=== PATIENT | male | born 1985 | race Caucasian/White ===

== ENCOUNTER 2016-09-28 09:08 | Inpatient (IN) | payer OTHER ==
[2016-09-28 11:28] VITALS: BMI 22.9
--- NOTE | 2016-09-28 13:20 | HP ---
CIWA Score - CIWA Score Nausea/Vomitin-Mild Nausea/No Vomiting Muscle Tremors: 4-Moderate,w/Arms Extend Anxiety: 3 Agitation: 4-Moderately Restless Paroxysmal Sweats: 3 Orientation: 0-Oriented Tacttile Disturbances: 0-None Auditory Disturbances: 0-None Visual Disturbances: 0-None Headache: 0-None Present CIWA-Ar Total Score: 15 Admission ROS BHS - HPI Chief Complaint: I have an alcohol problem and need help. Allergies/Adverse Reactions: Allergies Allergy/AdvReac Type Severity Reaction Status Date / Time No Known Allergies Allergy Verified 09/28/16 11:09 History of Present Illness: pt is a 31yr old male with a history of alcohol dependence seeking detox for treatment. Exam Limitations: No Limitations - Ebola screening Have you traveled outside of the country in the last 21 days: No Have you had contact with anyone from an Ebola affected area: No Have you been sick,other than usual withdrawal symptoms: No Do you have a fever: No - Review of Systems Constitutional: Chills, Diaphoresis, Loss of Appetite, Night Sweats, Changes in sleep, Unintentional Wgt. Loss EENT: reports: No Symptoms Reported Respiratory: reports: No Symptoms reported Cardiac: reports: No Symptoms Reported, Syncope GI: reports: Poor Fluid Intake, Indigestion : reports: No Symptoms Reported Musculoskeletal: reports: No Symptoms Reported Integumentary: reports: Flushing, Sweating Neuro: reports: Headache, Tingling, Tremors Endocrine: reports: Excessive Sweating, Flushing, Intolerance to Cold, Intolerance to Heat Hematology: reports: No Symptoms Reported Psychiatric: reports: Judgement Intact, Mood/Affect Appropiate, Orientated x3, Agitated, Anxious Other Systems: Reviewed and Negative Patient History - Patient Medical History Hx Anemia: No Hx Asthma: No Hx Chronic Obstructive Pulmonary Disease (COPD): No Hx Cancer: No Hx Cardiac Disorders: No Hx Congestive Heart Failure: No Hx Hypertension: Yes Hx Hypercholesterolemia: No Hx Pacemaker: No HX Cerebrovascular Accident: No Hx Seizures: No Hx Dementia: No Hx Diabetes: No Hx Gastrointestinal Disorders: Yes (acid reflux) Hx Liver Disease: No Hx Genitourinary Disorders: No Hx Sexually Transmitted Disorders: No Hx Renal Disease (ESRD): No Hx Thyroid Disease: No Hx Human Immunodeficiency Virus (HIV): No Hx Hepatitis C: No Hx Depression: No Hx Suicide Attempt: No (denies) Hx Bipolar Disorder: No Hx Schizophrenia: No - Patient Surgical History Past Surgical History: Yes Hx Neurologic Surgery: No Hx Cataract Extraction: No Hx Cardiac Surgery: No Hx Lung Surgery: No Hx Breast Surgery: No Hx Breast Biopsy: No Hx Abdominal Surgery: No Hx Appendectomy: Yes Hx Cholecystectomy: No Hx Genitourinary Surgery: No Hx Section: No Hx Orthopedic Surgery: No Hx Hysterectomy: No (N/A) Anesthesia Reaction: No - PPD History Previous Implant?: Yes Documented Results: Negative w/proof Implanted On Prior [facility] Admission?: Yes Date: 10/31/14 Results: 0 mm - Reproductive History Patient is a Female of Child Bearing Age (11 -55 yrs old): No - Smoking Cessation Smoking history: Current some day smoker Have you smoked in the past 12 months: No Aproximately how many cigarettes per day: 3 Cigars Per Day: 0 Hx Chewing Tobacco Use: No Initiated information on smoking cessation: Yes 'Breaking Loose' booklet given: 09/28/16 - Substance & Tx. History Hx Alcohol Use: Yes Hx Substance Use: No Substance Use Type: Alcohol Hx Substance Use Treatment: Yes - Substances Abused Alcohol-rum/beer Route: Oral Frequency: Daily Amount used: 1 liter/2 (12 oz.) Age of first use: 16 Date of Last Use: 09/28/16 Family Disease History - Family Disease History Family Disease History: Heart Disease: Grandparent Admission Physical Exam BHS - Vital Signs Vital Signs: Vital Signs - 24 hr 09/28/16 11:17 Temperature 98.3 F Pulse Rate 91 H Respiratory 18 Rate Blood Pressure 150/91 - Physical General Appearance: Yes: Appropriately Dressed, Moderate Distress, Tremorous, Irritable, Sweating, Anxious HEENTM: Yes: Normal Voice Respiratory: Yes: Lungs Clear, Normal Breath Sounds, No Respiratory Distress Neck: Yes: No masses,lesions,Nodules Breast: Yes: Within Normal Limits Cardiology: Yes: Regular Rhythm, Regular Rate, S1, S2, Tachycardia Abdominal: Yes: Normal Bowel Sounds Genitourinary: Yes: Within Normal Limits Back: Yes: Normal Inspection Musculoskeletal: Yes: full range of Motion Extremities: Yes: Normal Capillary Refill, Normal Inspection, Non-Tender, Tremors Neurological: Yes: Fully Oriented, Alert, Normal Response Integumentary: Yes: Normal Color, Diaphoresis Lymphatic: Yes: Within Normal Limits - Diagnostic (1) Alcohol dependence with uncomplicated withdrawal Current Visit: Yes Status: Chronic (2) Acid reflux Current Visit: Yes Status: Chronic Qualifiers: Esophagitis presence: without esophagitis Qualified Code(s): K21.9 - Gastro-esophageal reflux disease without esophagitis (3) Hypertension Current Visit: Yes Status: Chronic Qualifiers: Hypertension type: essential hypertension Qualified Code(s): I10 - Essential (primary) hypertension Cleared for Admission S - Detox or Rehab [facility] Level of Care: Medically Managed Detox Regimen/Protocol: Librium [facility] Breath Alcohol Content Breath Alcohol Content: 0.163 Urine Drug Screen - Results Drug Screen Negative: Yes
[2016-09-28] MEDS ORDERED: hydrOXYzine PAMOATE 50 MG CAPSULE (FP) PO PRN (13:26)
[2016-09-28] MEDS ORDERED: guaiFENesin/D-METHORPHAN HB 10 ML UNIT-DOSE CUPS PO PRN (13:26)
[2016-09-28] MEDS ORDERED: chlordiazePOXIDE HCL 25 MG CAPSULE PO PRN (13:26)
[2016-09-28] MEDS ORDERED: MAGNESIUM CITRATE 300 ML BOTTLE PO PRN (13:26)
[2016-09-28] MEDS ORDERED: MENTHOL/PHENOL 1 EACH UD MM PRN (13:26)
[2016-09-28] MEDS ORDERED: MAG HYDROX/AL HYDROX/SIMETH 30 ML UNIT-DOSE CUP PO PRN (13:26)
[2016-09-28] MEDS ORDERED: ACETAMINOPHEN 325 MG TABLET (FP) PO PRN (13:26)
[2016-09-28] MEDS ORDERED: MAGNESIUM HYDROX 2400MG/30ML ORAL SUSPENSION 30 ML CUP PO PRN (13:26)
[2016-09-28] MEDS ORDERED: IBUPROFEN 400 MG TABLET (FP) PO PRN (13:26)
[2016-09-28] MEDS ORDERED: LOPERAMIDE HCL 2 MG CAPSULE PO PRN (13:26)
[2016-09-28] MEDS ORDERED: P-EPHED 60MG/TRIPROLIDI 2.5MG TABLET PO PRN (13:26)
[2016-09-28] MEDS ORDERED: chlordiazePOXIDE HCL 25 MG CAPSULE PO ONE (14:03)
--- NOTE | 2016-09-28 16:11 | EKG ---
Test Reason : Blood Pressure : / mmHG Vent. Rate : 087 BPM Atrial Rate : 087 BPM P-R Int : 128 ms QRS Dur : 092 ms QT Int : 370 ms P-R-T Axes : 017 022 031 degrees QTc Int : 445 ms NORMAL SINUS RHYTHM NORMAL ECG WHEN COMPARED WITH ECG OF 20-MAR-2016 09:49, NO SIGNIFICANT CHANGE WAS FOUND Confirmed by ARISTIDES SAWANT MD ([id number]) on 09/28/2016 4:11:07 PM Referred By: Christian Borges Confirmed By:ARSITIDES SAWANT MD
[2016-09-28 17:22] LABS: URINE APPEARANCE CLEAR; URINE BILIRUBIN NEGATIVE (NEGATIVE); URINE BLOOD NEGATIVE (NEGATIVE); URINE COLOR YELLOW; URINE GLUCOSE (UA) NEGATIVE (NEGATIVE); URINE KETONE NEGATIVE (NEGATIVE); URINE LEUK ESTERASE NEGATIVE (NEGATIVE); URINE NITRITE NEGATIVE (NEGATIVE); URINE PROTEIN NEGATIVE (NEGATIVE); URINE UROBILINOGEN NEGATIVE E.U./dl (0.2-1.0)
[2016-09-28] MEDS: chlordiazePOXIDE HCL 25 MG CAPSULE PO SCH ×2 (17:28→22:18)
[2016-09-28] MEDS ORDERED: PATIENT'S OWN MEDICATION (NON-FORMULARY) (Clonidine Hcl [Clonidine Hcl Er] 0.1 MG) PO SCH (22:00)
[2016-09-28] MEDS: THIAMINE HCL 100 MG TABLET (FP) PO SCH (22:17)
[2016-09-28] MEDS: cloNIDine HCL 0.1 MG TABLET PO SCH (22:17)
[2016-09-29] MEDS: chlordiazePOXIDE HCL 25 MG CAPSULE PO SCH ×4 (05:27→22:46)
[2016-09-29 09:52] LABS: MCH 33.5 pg (25.7-33.7); MCHC 34.3 g/dl (32.0-35.9); MEAN CELL VOLUME 97.6 fl (80-96); MEAN PLT VOLUME 8.7 fl (7.5-11.1); PLATELET COUNT 222 K/MM3 (134-434); RDW 11.9 % (11.9-15.9); WHITE BLOOD COUNT 5.9 K/mm3 (4.0-10.0)
--- NOTE | 2016-09-29 09:55 | PN ---
S CIWA - CIWA Score Nausea/Vomitin Muscle Tremors: 3 Anxiety: 3 Agitation: 2 Paroxysmal Sweats: 3 Orientation: 0-Oriented Tacttile Disturbances: 1-Very Mild Itch/Numbness Auditory Disturbances: 0-None Visual Disturbances: 0-None Headache: 0-None Present CIWA-Ar Total Score: 14 BHS Progress Note (SOAP) Subjective: interrupted sleep, sweats, shakes Objective: 09/29/16 09:54 Vital Signs Temperature 98.1 F 09/29/16 09:51 Pulse Rate 88 09/29/16 09:51 Respiratory Rate 16 09/29/16 09:51 Blood Pressure 131/66 09/29/16 09:51 O2 Sat by Pulse Oximetry (%) Laboratory Tests 09/28/16 13:00 Urine Color Yellow Urine Appearance Clear Urine pH 6.0 Ur Specific [place] 1.015 Urine Protein Negative Urine Glucose (UA) Negative Urine Ketones Negative Urine Blood Negative Urine Nitrite Negative Urine Bilirubin Negative Urine Urobilinogen Negative Ur Leukocyte Esterase Negative 09/29/16 11:29 pt aox3 in nad ambulating 09/29/16 11:29 09/29/16 11:30 Laboratory Tests 09/28/16 09/29/16 13:00 06:10 WBC 5.9 RBC 4.39 Hgb 14.7 Hct 42.8 MCV 97.6 H MCHC 34.3 RDW 11.9 Plt Count 222 D MPV 8.7 Urine Color Yellow Urine Appearance Clear Urine pH 6.0 Ur Specific [place] 1.015 Urine Protein Negative Urine Glucose (UA) Negative Urine Ketones Negative Urine Blood Negative Urine Nitrite Negative Urine Bilirubin Negative Urine Urobilinogen Negative Ur Leukocyte Esterase Negative Assessment: 09/29/16 09:55 withdrawal sx's 09/29/16 11:29 Plan: cont. detox increase fluids f/up pending labs
[2016-09-29 10:48] LABS: ALBUMIN 4.1 g/dl (3.4-5.0); ALK PHOS 89 U/L (45-117); ANION GAP 11 (8-16); BILIRUBIN,TOTAL 0.5 mg/dL (0.2-1.0); CALCIUM 8.4 mg/dL (8.5-10.1); CO2 26 mmol/L (21-32); CREATININE 0.8 mg/dL (0.7-1.3); GLUCOSE,RANDOM 96 mg/dL (74-106); SGOT/AST 28 U/L (15-37); SGPT/ALT 43 U/L (12-78); TOT PROT 7.5 g/dl (6.4-8.2)
[2016-09-29] MEDS: PANTOPRAZOLE 40 MG TABLET (FP) PO SCH (10:55)
[2016-09-29] MEDS: cloNIDine HCL 0.1 MG TABLET PO SCH ×2 (10:55→22:46)
[2016-09-29] MEDS: PRENATAL VITAMINS W/ FOLIC ACID TABLET (FP) PO SCH (10:55)
[2016-09-29] MEDS: diphenhydrAMINE HCL 50 MG CAPSULE PO PRN (22:46)
[2016-09-29] MEDS: THIAMINE HCL 100 MG TABLET (FP) PO SCH (22:46)
[2016-09-30] MEDS: chlordiazePOXIDE HCL 25 MG CAPSULE PO SCH ×2 (05:22→10:27)
[2016-09-30 09:32] LABS: URINE APPEARANCE CLEAR; URINE BILIRUBIN NEGATIVE (NEGATIVE); URINE BLOOD NEGATIVE (NEGATIVE); URINE COLOR LTYELLOW; URINE GLUCOSE (UA) NEGATIVE (NEGATIVE); URINE KETONE NEGATIVE (NEGATIVE); URINE LEUK ESTERASE NEGATIVE (NEGATIVE); URINE NITRITE NEGATIVE (NEGATIVE); URINE PROTEIN NEGATIVE (NEGATIVE); URINE UROBILINOGEN 2.0 E.U/dl E.U./dl (0.2-1.0)
[2016-09-30] MEDS: PRENATAL VITAMINS W/ FOLIC ACID TABLET (FP) PO SCH (10:27)
[2016-09-30] MEDS: PANTOPRAZOLE 40 MG TABLET (FP) PO SCH (10:28)
[2016-09-30] MEDS: cloNIDine HCL 0.1 MG TABLET PO SCH ×2 (10:28→22:46)
--- NOTE | 2016-09-30 14:53 | PN ---
S CIWA - CIWA Score Nausea/Vomitin Muscle Tremors: 3 Anxiety: 3 Agitation: 2 Paroxysmal Sweats: 3 Orientation: 0-Oriented Tacttile Disturbances: 3-Moderate Itch/Numb/Burn Auditory Disturbances: 0-None Visual Disturbances: 1-Very Mild Sensitivity Headache: 0-None Present CIWA-Ar Total Score: 18 BHS Progress Note (SOAP) Subjective: Sweating, Stomach Cramping, Interrupted sleep. Objective: PT. A & O X 3, OBSERVED AMBULATING ON UNIT. 09/30/16 14:50 Vital Signs Temperature 96.6 F L 09/30/16 14:31 Pulse Rate 98 H 09/30/16 14:31 Respiratory Rate 20 09/30/16 14:31 Blood Pressure 124/74 09/30/16 14:31 O2 Sat by Pulse Oximetry (%) Laboratory Last Values WBC 5.9 K/mm3 (4.0-10.0) 09/29/16 06:10 RBC 4.39 M/mm3 (4.00-5.60) 09/29/16 06:10 Hgb 14.7 GM/dL (11.7-16.9) 09/29/16 06:10 Hct 42.8 % (35.4-49) 09/29/16 06:10 MCV 97.6 fl (80-96) H 09/29/16 06:10 MCHC 34.3 g/dl (32.0-35.9) 09/29/16 06:10 RDW 11.9 % (11.9-15.9) 09/29/16 06:10 Plt Count 222 K/MM3 (134-434) D 09/29/16 06:10 MPV 8.7 fl (7.5-11.1) 09/29/16 06:10 Sodium 142 mmol/L (136-145) 09/29/16 06:10 Potassium 3.6 mmol/L (3.5-5.1) 09/29/16 06:10 Chloride 105 mmol/L (98-107) 09/29/16 06:10 Carbon Dioxide 26 mmol/L (21-32) 09/29/16 06:10 Anion Gap 11 (8-16) 09/29/16 06:10 BUN 7 mg/dL (7-18) D 09/29/16 06:10 Creatinine 0.8 mg/dL (0.7-1.3) 09/29/16 06:10 Creat Clearance w eGFR > 60 (>60) 09/29/16 06:10 Random Glucose 96 mg/dL (74-106) 09/29/16 06:10 Calcium 8.4 mg/dL (8.5-10.1) L 09/29/16 06:10 Total Bilirubin 0.5 mg/dL (0.2-1.0) D 09/29/16 06:10 AST 28 U/L (15-37) D 09/29/16 06:10 ALT 43 U/L (12-78) D 09/29/16 06:10 Alkaline Phosphatase 89 U/L (45-117) D 09/29/16 06:10 Total Protein 7.5 g/dl (6.4-8.2) 09/29/16 06:10 Albumin 4.1 g/dl (3.4-5.0) 09/29/16 06:10 Urine Color Ltyellow 09/30/16 07:50 Urine Appearance Clear 09/30/16 07:50 Urine pH 7.0 (5.0-8.0) 09/30/16 07:50 Ur Specific [place] 1.013 (1.001-1.035) 09/30/16 07:50 Urine Protein Negative (NEGATIVE) 09/30/16 07:50 Urine Glucose (UA) Negative (NEGATIVE) 09/30/16 07:50 Urine Ketones Negative (NEGATIVE) 09/30/16 07:50 Urine Blood Negative (NEGATIVE) 09/30/16 07:50 Urine Nitrite Negative (NEGATIVE) 09/30/16 07:50 Urine Bilirubin Negative (NEGATIVE) 09/30/16 07:50 Urine Urobilinogen 2.0 e.u/dl E.U./dl (0.2-1.0) 09/30/16 07:50 Ur Leukocyte Esterase Negative (NEGATIVE) 09/30/16 07:50 RPR Titer Nonreactive (NONREACTIVE) 09/29/16 06:10 Hepatitis C Antibody 0.1 s/co ratio (0.0-0.9) 09/28/16 13:10 LABS NOTED. Assessment: 09/30/16 14:51 WITHDRAWAL SYMPTOMS. Plan: CONTINUE DETOX.
[2016-09-30] MEDS: chlordiazePOXIDE 5 MG CAPSULE PO SCH ×2 (17:27→22:46)
[2016-09-30] MEDS: diphenhydrAMINE HCL 50 MG CAPSULE PO PRN (22:46)
[2016-09-30] MEDS: THIAMINE HCL 100 MG TABLET (FP) PO SCH (22:46)
[2016-10-01] MEDS: chlordiazePOXIDE 5 MG CAPSULE PO SCH ×2 (05:57→10:31)
[2016-10-01] MEDS: PANTOPRAZOLE 40 MG TABLET (FP) PO SCH (10:31)
[2016-10-01] MEDS: PRENATAL VITAMINS W/ FOLIC ACID TABLET (FP) PO SCH (10:31)
[2016-10-01] MEDS: cloNIDine HCL 0.1 MG TABLET PO SCH ×2 (10:31→22:15)
--- NOTE | 2016-10-01 12:35 | PN ---
BHS Progress Note (SOAP) Subjective: Anxiety and restlessness Objective: 10/01/16 12:35 NAD Vital Signs - 8 hr 10/01/16 10/01/16 06:00 10:00 Temperature 97.7 F 98.2 F Pulse Rate 61 92 H Respiratory 16 20 Rate Blood Pressure 131/75 125/71 Laboratory Last Values WBC 5.9 K/mm3 (4.0-10.0) 09/29/16 06:10 RBC 4.39 M/mm3 (4.00-5.60) 09/29/16 06:10 Hgb 14.7 GM/dL (11.7-16.9) 09/29/16 06:10 Hct 42.8 % (35.4-49) 09/29/16 06:10 MCV 97.6 fl (80-96) H 09/29/16 06:10 MCHC 34.3 g/dl (32.0-35.9) 09/29/16 06:10 RDW 11.9 % (11.9-15.9) 09/29/16 06:10 Plt Count 222 K/MM3 (134-434) D 09/29/16 06:10 MPV 8.7 fl (7.5-11.1) 09/29/16 06:10 Sodium 142 mmol/L (136-145) 09/29/16 06:10 Potassium 3.6 mmol/L (3.5-5.1) 09/29/16 06:10 Chloride 105 mmol/L (98-107) 09/29/16 06:10 Carbon Dioxide 26 mmol/L (21-32) 09/29/16 06:10 Anion Gap 11 (8-16) 09/29/16 06:10 BUN 7 mg/dL (7-18) D 09/29/16 06:10 Creatinine 0.8 mg/dL (0.7-1.3) 09/29/16 06:10 Creat Clearance w eGFR > 60 (>60) 09/29/16 06:10 Random Glucose 96 mg/dL (74-106) 09/29/16 06:10 Calcium 8.4 mg/dL (8.5-10.1) L 09/29/16 06:10 Total Bilirubin 0.5 mg/dL (0.2-1.0) D 09/29/16 06:10 AST 28 U/L (15-37) D 09/29/16 06:10 ALT 43 U/L (12-78) D 09/29/16 06:10 Alkaline Phosphatase 89 U/L (45-117) D 09/29/16 06:10 Total Protein 7.5 g/dl (6.4-8.2) 09/29/16 06:10 Albumin 4.1 g/dl (3.4-5.0) 09/29/16 06:10 Urine Color Ltyellow 09/30/16 07:50 Urine Appearance Clear 09/30/16 07:50 Urine pH 7.0 (5.0-8.0) 09/30/16 07:50 Ur Specific [place] 1.013 (1.001-1.035) 09/30/16 07:50 Urine Protein Negative (NEGATIVE) 09/30/16 07:50 Urine Glucose (UA) Negative (NEGATIVE) 09/30/16 07:50 Urine Ketones Negative (NEGATIVE) 09/30/16 07:50 Urine Blood Negative (NEGATIVE) 09/30/16 07:50 Urine Nitrite Negative (NEGATIVE) 09/30/16 07:50 Urine Bilirubin Negative (NEGATIVE) 09/30/16 07:50 Urine Urobilinogen 2.0 e.u/dl E.U./dl (0.2-1.0) 09/30/16 07:50 Ur Leukocyte Esterase Negative (NEGATIVE) 09/30/16 07:50 RPR Titer Nonreactive (NONREACTIVE) 09/29/16 06:10 Hepatitis C Antibody 0.1 s/co ratio (0.0-0.9) 09/28/16 13:10 Labs noted Assessment: 10/01/16 12:35 withdrawal sx Plan: continue detox
[2016-10-01] MEDS: chlordiazePOXIDE HCL 10 MG CAPSULE PO SCH ×2 (17:23→22:15)
[2016-10-01] MEDS: diphenhydrAMINE HCL 50 MG CAPSULE PO PRN (22:15)
[2016-10-01] MEDS: THIAMINE HCL 100 MG TABLET (FP) PO SCH (22:15)
[2016-10-02] MEDS: chlordiazePOXIDE HCL 10 MG CAPSULE PO SCH (05:24)
[2016-10-02 06:43] VITALS: BP 118/70; PULSE 73; TEMP 97.9
--- NOTE | 2016-10-02 10:19 | DS ---
[facility] Detox Discharge Summary Admission Date: 09/28/16 Discharge Date: 10/02/16 - History Present History: Alcohol Dependence Pertinent Past History: Hypertension Smoker - Physical Exam Results Vital Signs: Vital Signs Temperature 97.9 F 10/02/16 06:00 Pulse Rate 73 10/02/16 06:00 Respiratory Rate 16 10/02/16 06:00 Blood Pressure 118/70 10/02/16 06:00 O2 Sat by Pulse Oximetry (%) Laboratory Last Values WBC 5.9 K/mm3 (4.0-10.0) 09/29/16 06:10 RBC 4.39 M/mm3 (4.00-5.60) 09/29/16 06:10 Hgb 14.7 GM/dL (11.7-16.9) 09/29/16 06:10 Hct 42.8 % (35.4-49) 09/29/16 06:10 MCV 97.6 fl (80-96) H 09/29/16 06:10 MCHC 34.3 g/dl (32.0-35.9) 09/29/16 06:10 RDW 11.9 % (11.9-15.9) 09/29/16 06:10 Plt Count 222 K/MM3 (134-434) D 09/29/16 06:10 MPV 8.7 fl (7.5-11.1) 09/29/16 06:10 Sodium 142 mmol/L (136-145) 09/29/16 06:10 Potassium 3.6 mmol/L (3.5-5.1) 09/29/16 06:10 Chloride 105 mmol/L (98-107) 09/29/16 06:10 Carbon Dioxide 26 mmol/L (21-32) 09/29/16 06:10 Anion Gap 11 (8-16) 09/29/16 06:10 BUN 7 mg/dL (7-18) D 09/29/16 06:10 Creatinine 0.8 mg/dL (0.7-1.3) 09/29/16 06:10 Creat Clearance w eGFR > 60 (>60) 09/29/16 06:10 Random Glucose 96 mg/dL (74-106) 09/29/16 06:10 Calcium 8.4 mg/dL (8.5-10.1) L 09/29/16 06:10 Total Bilirubin 0.5 mg/dL (0.2-1.0) D 09/29/16 06:10 AST 28 U/L (15-37) D 09/29/16 06:10 ALT 43 U/L (12-78) D 09/29/16 06:10 Alkaline Phosphatase 89 U/L (45-117) D 09/29/16 06:10 Total Protein 7.5 g/dl (6.4-8.2) 09/29/16 06:10 Albumin 4.1 g/dl (3.4-5.0) 09/29/16 06:10 Urine Color Ltyellow 09/30/16 07:50 Urine Appearance Clear 09/30/16 07:50 Urine pH 7.0 (5.0-8.0) 09/30/16 07:50 Ur Specific [place] 1.013 (1.001-1.035) 09/30/16 07:50 Urine Protein Negative (NEGATIVE) 09/30/16 07:50 Urine Glucose (UA) Negative (NEGATIVE) 09/30/16 07:50 Urine Ketones Negative (NEGATIVE) 09/30/16 07:50 Urine Blood Negative (NEGATIVE) 09/30/16 07:50 Urine Nitrite Negative (NEGATIVE) 09/30/16 07:50 Urine Bilirubin Negative (NEGATIVE) 09/30/16 07:50 Urine Urobilinogen 2.0 e.u/dl E.U./dl (0.2-1.0) 09/30/16 07:50 Ur Leukocyte Esterase Negative (NEGATIVE) 09/30/16 07:50 RPR Titer Nonreactive (NONREACTIVE) 09/29/16 06:10 Hepatitis C Antibody 0.1 s/co ratio (0.0-0.9) 09/28/16 13:10 labs noted - Treatment Hospital Course: Detox Protocol Followed, Detoxed Safely, Responded well, Discharged Condition Good - Medication Discharge Medications: Ambulatory Orders Clonidine HCl [Clonidine HCl ER] 0.1 mg PO BID 03/19/16 Omeprazole [Prilosec] 40 mg PO DAILY 03/19/16 - Diagnosis (1) Acid reflux Status: Chronic Qualifiers: Esophagitis presence: without esophagitis Qualified Code(s): K21.9 - Gastro-esophageal reflux disease without esophagitis (2) Alcohol dependence with uncomplicated withdrawal Status: Chronic (3) Hypertension Status: Chronic Qualifiers: Hypertension type: essential hypertension Qualified Code(s): I10 - Essential (primary) hypertension (4) Nicotine dependence unspecified, with withdrawal Status: Acute - AMA Did Patient Leave Against Medical Advice: No
== END 2016-10-02 09:44 | disposition home or self-care (01) | DRG 775 ==
LOC: YASAS 09:08 → Y6N 11:49
PROVIDERS: ADMIT Internal Medicine Addiction Medicine; ATTEND Internal Medicine Addiction Medicine
PROC: HZ2ZZZZ Detoxification Services for Substance Abuse Treatment (ICD-10-PCS; principal; 2016-10-02)
DX: F10.230 Alcohol dependence with withdrawal, uncomplicated (principal); F17.213 Nicotine dependence, cigarettes, with withdrawal; I10 Essential (primary) hypertension; K21.9 Gastro-esophageal reflux disease without esophagitis
CPT/HCPCS: 36415; 80053; 81003; 85027; 86593; 93005; 93010

== ENCOUNTER 2016-10-04 09:27 | Inpatient (IN) | payer OTHER ==
[2016-10-04 09:53] VITALS: BMI 24.4
--- NOTE | 2016-10-04 11:32 | HP ---
[facility] Rehab Assess/Revision - Admission History Admitted to Rehab from: [facility] (COMPLETED DETOX ON 09/28/16 TO .) Date of Admission to Rehab: 10/04/16 - Vital signs Vital Signs: Vital Signs Period Temp Pulse Resp BP Sys/Muniz Pulse Ox Last 24 Hr 98.4 F 128 18 145/97 - Findings Detox History & Physical reviewed: Yes Concur with findings: Yes Comments/Additional Findings: RETURNED TODAY FOR A FOLLOW UP TO REHAB [place] RECOMMENDATION. PMHX:HTN. ON CLONIDINE 0.1 MG PO BID(VERIFIED FROM [facility]). PMD:MORENO TILLMAN MD. PH:[phone]
[2016-10-04] MEDS ORDERED: P-EPHED 60MG/TRIPROLIDI 2.5MG TABLET PO PRN (11:41)
[2016-10-04] MEDS ORDERED: NICOTINE POLACRILEX 2 MG GUM BUC PRN (11:41)
[2016-10-04] MEDS ORDERED: IBUPROFEN 400 MG TABLET (FP) PO PRN (11:41)
[2016-10-04] MEDS ORDERED: ACETAMINOPHEN 325 MG TABLET (FP) PO PRN (11:41)
[2016-10-04] MEDS ORDERED: MAG HYDROX/AL HYDROX/SIMETH 30 ML UNIT-DOSE CUP PO PRN (11:41)
[2016-10-04] MEDS ORDERED: guaiFENesin/D-METHORPHAN HB 10 ML UNIT-DOSE CUPS PO PRN (11:41)
[2016-10-04] MEDS ORDERED: MENTHOL/PHENOL 1 EACH UD MM PRN (11:41)
[2016-10-04] MEDS ORDERED: MAGNESIUM CITRATE 300 ML BOTTLE PO PRN (11:41)
[2016-10-04] MEDS ORDERED: LOPERAMIDE HCL 2 MG CAPSULE PO PRN (11:41)
[2016-10-04] MEDS ORDERED: MAGNESIUM HYDROX 2400MG/30ML ORAL SUSPENSION 30 ML CUP PO PRN (11:41)
[2016-10-04] MEDS ORDERED: PATIENT'S OWN MEDICATION (NON-FORMULARY) (Clonidine Hcl [Clonidine Hcl Er] 0.1 MG) PO SCH (11:45)
[2016-10-04] MEDS: cloNIDine HCL 0.1 MG TABLET PO SCH ×2 (13:57→21:45)
[2016-10-04] MEDS: NICOTINE 14 MG/24 HOURS TOPICAL PATCH TD SCH (13:58)
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
[2016-10-04 20:04] LABS: URINE APPEARANCE CLEAR; URINE BILIRUBIN NEGATIVE (NEGATIVE); URINE BLOOD NEGATIVE (NEGATIVE); URINE COLOR LTYELLOW; URINE GLUCOSE (UA) NEGATIVE (NEGATIVE); URINE KETONE NEGATIVE (NEGATIVE); URINE LEUK ESTERASE NEGATIVE (NEGATIVE); URINE NITRITE NEGATIVE (NEGATIVE); URINE PROTEIN NEGATIVE (NEGATIVE); URINE UROBILINOGEN NEGATIVE E.U./dl (0.2-1.0)
[2016-10-04] MEDS: THIAMINE HCL 100 MG TABLET (FP) PO SCH (21:45)
[2016-10-04] MEDS: diphenhydrAMINE HCL 50 MG CAPSULE PO PRN (21:45)
[2016-10-05] MEDS: cloNIDine HCL 0.1 MG TABLET PO SCH ×2 (10:12→21:49)
[2016-10-05] MEDS: PRENATAL VITAMINS W/ FOLIC ACID TABLET (FP) PO SCH (10:12)
[2016-10-05] MEDS: NICOTINE 14 MG/24 HOURS TOPICAL PATCH TD SCH (10:12)
[2016-10-05 14:16] LABS: URINE APPEARANCE CLEAR; URINE BILIRUBIN NEGATIVE (NEGATIVE); URINE BLOOD NEGATIVE (NEGATIVE); URINE COLOR YELLOW; URINE GLUCOSE (UA) NEGATIVE (NEGATIVE); URINE KETONE NEGATIVE (NEGATIVE); URINE LEUK ESTERASE NEGATIVE (NEGATIVE); URINE NITRITE NEGATIVE (NEGATIVE); URINE PROTEIN NEGATIVE (NEGATIVE); URINE UROBILINOGEN 2.0 E.U/dl E.U./dl (0.2-1.0)
[2016-10-05] MEDS: THIAMINE HCL 100 MG TABLET (FP) PO SCH (21:49)
[2016-10-05] MEDS: diphenhydrAMINE HCL 50 MG CAPSULE PO PRN (21:50)
[2016-10-06] MEDS: cloNIDine HCL 0.1 MG TABLET PO SCH ×2 (10:05→21:33)
[2016-10-06] MEDS: NICOTINE 14 MG/24 HOURS TOPICAL PATCH TD SCH (10:05)
[2016-10-06] MEDS: PRENATAL VITAMINS W/ FOLIC ACID TABLET (FP) PO SCH (10:05)
[2016-10-06] MEDS: THIAMINE HCL 100 MG TABLET (FP) PO SCH (21:33)
[2016-10-06] MEDS: hydrOXYzine PAMOATE 50 MG CAPSULE (FP) PO PRN (21:33)
[2016-10-07] MEDS: PRENATAL VITAMINS W/ FOLIC ACID TABLET (FP) PO SCH (10:04)
[2016-10-07] MEDS: cloNIDine HCL 0.1 MG TABLET PO SCH ×2 (10:04→21:37)
[2016-10-07] MEDS: NICOTINE 14 MG/24 HOURS TOPICAL PATCH TD SCH (10:05)
[2016-10-07] MEDS: THIAMINE HCL 100 MG TABLET (FP) PO SCH (21:37)
[2016-10-07] MEDS: diphenhydrAMINE HCL 50 MG CAPSULE PO PRN (21:37)
[2016-10-08] MEDS: PRENATAL VITAMINS W/ FOLIC ACID TABLET (FP) PO SCH (10:22)
[2016-10-08] MEDS: NICOTINE 14 MG/24 HOURS TOPICAL PATCH TD SCH (10:22)
[2016-10-08] MEDS: cloNIDine HCL 0.1 MG TABLET PO SCH ×2 (10:22→21:59)
[2016-10-08] MEDS: hydrOXYzine PAMOATE 50 MG CAPSULE (FP) PO PRN (21:59)
[2016-10-08] MEDS: THIAMINE HCL 100 MG TABLET (FP) PO SCH (21:59)
[2016-10-09] MEDS: cloNIDine HCL 0.1 MG TABLET PO SCH ×2 (09:58→21:27)
[2016-10-09] MEDS: PRENATAL VITAMINS W/ FOLIC ACID TABLET (FP) PO SCH (09:58)
[2016-10-09] MEDS: NICOTINE 14 MG/24 HOURS TOPICAL PATCH TD SCH (09:59)
[2016-10-09] MEDS: hydrOXYzine PAMOATE 50 MG CAPSULE (FP) PO PRN (21:27)
[2016-10-09] MEDS: THIAMINE HCL 100 MG TABLET (FP) PO SCH (21:27)
[2016-10-10] MEDS: cloNIDine HCL 0.1 MG TABLET PO SCH ×2 (10:17→21:29)
[2016-10-10] MEDS: NICOTINE 14 MG/24 HOURS TOPICAL PATCH TD SCH (10:17)
[2016-10-10] MEDS: PRENATAL VITAMINS W/ FOLIC ACID TABLET (FP) PO SCH (10:17)
[2016-10-10] MEDS: THIAMINE HCL 100 MG TABLET (FP) PO SCH (21:29)
[2016-10-10] MEDS: hydrOXYzine PAMOATE 50 MG CAPSULE (FP) PO PRN (21:29)
[2016-10-11] MEDS: NICOTINE 14 MG/24 HOURS TOPICAL PATCH TD SCH (09:52)
[2016-10-11] MEDS: PRENATAL VITAMINS W/ FOLIC ACID TABLET (FP) PO SCH (09:52)
[2016-10-11] MEDS: cloNIDine HCL 0.1 MG TABLET PO SCH ×2 (09:52→21:17)
[2016-10-11] MEDS: THIAMINE HCL 100 MG TABLET (FP) PO SCH (21:17)
[2016-10-11] MEDS: diphenhydrAMINE HCL 50 MG CAPSULE PO PRN (21:18)
[2016-10-12] MEDS: PRENATAL VITAMINS W/ FOLIC ACID TABLET (FP) PO SCH (10:05)
[2016-10-12] MEDS: NICOTINE 14 MG/24 HOURS TOPICAL PATCH TD SCH (10:05)
[2016-10-12] MEDS: cloNIDine HCL 0.1 MG TABLET PO SCH ×2 (10:05→21:39)
[2016-10-12] MEDS: diphenhydrAMINE HCL 50 MG CAPSULE PO PRN (21:39)
[2016-10-12] MEDS: THIAMINE HCL 100 MG TABLET (FP) PO SCH (21:39)
[2016-10-13] MEDS: PRENATAL VITAMINS W/ FOLIC ACID TABLET (FP) PO SCH (10:28)
[2016-10-13] MEDS: NICOTINE 14 MG/24 HOURS TOPICAL PATCH TD SCH (10:28)
[2016-10-13] MEDS: cloNIDine HCL 0.1 MG TABLET PO SCH ×2 (10:29→21:08)
[2016-10-13] MEDS: THIAMINE HCL 100 MG TABLET (FP) PO SCH (21:07)
[2016-10-13] MEDS: diphenhydrAMINE HCL 50 MG CAPSULE PO PRN (21:08)
[2016-10-14] MEDS: NICOTINE 14 MG/24 HOURS TOPICAL PATCH TD SCH (09:56)
[2016-10-14] MEDS: PRENATAL VITAMINS W/ FOLIC ACID TABLET (FP) PO SCH (09:56)
[2016-10-14] MEDS: cloNIDine HCL 0.1 MG TABLET PO SCH ×2 (09:56→21:51)
[2016-10-14] MEDS: THIAMINE HCL 100 MG TABLET (FP) PO SCH (21:52)
[2016-10-14] MEDS: hydrOXYzine PAMOATE 50 MG CAPSULE (FP) PO PRN (21:52)
[2016-10-15] MEDS: NICOTINE 14 MG/24 HOURS TOPICAL PATCH TD SCH (09:50)
[2016-10-15] MEDS: PRENATAL VITAMINS W/ FOLIC ACID TABLET (FP) PO SCH (09:50)
[2016-10-15] MEDS: cloNIDine HCL 0.1 MG TABLET PO SCH ×2 (09:50→21:13)
[2016-10-15] MEDS: diphenhydrAMINE HCL 50 MG CAPSULE PO PRN (21:13)
[2016-10-15] MEDS: THIAMINE HCL 100 MG TABLET (FP) PO SCH (21:13)
[2016-10-16] MEDS: PRENATAL VITAMINS W/ FOLIC ACID TABLET (FP) PO SCH (09:53)
[2016-10-16] MEDS: NICOTINE 14 MG/24 HOURS TOPICAL PATCH TD SCH (09:53)
[2016-10-16] MEDS: cloNIDine HCL 0.1 MG TABLET PO SCH ×2 (09:53→21:06)
[2016-10-16] MEDS: diphenhydrAMINE HCL 50 MG CAPSULE PO PRN (21:06)
[2016-10-16] MEDS: THIAMINE HCL 100 MG TABLET (FP) PO SCH (21:06)
[2016-10-17] MEDS: cloNIDine HCL 0.1 MG TABLET PO SCH ×2 (10:00→21:24)
[2016-10-17] MEDS: PRENATAL VITAMINS W/ FOLIC ACID TABLET (FP) PO SCH (10:00)
[2016-10-17] MEDS: NICOTINE 14 MG/24 HOURS TOPICAL PATCH TD SCH (10:00)
[2016-10-17] MEDS: THIAMINE HCL 100 MG TABLET (FP) PO SCH (21:24)
[2016-10-17] MEDS: hydrOXYzine PAMOATE 50 MG CAPSULE (FP) PO PRN (21:25)
[2016-10-18] MEDS: PRENATAL VITAMINS W/ FOLIC ACID TABLET (FP) PO SCH (10:12)
[2016-10-18] MEDS: NICOTINE 14 MG/24 HOURS TOPICAL PATCH TD SCH (10:12)
[2016-10-18] MEDS: cloNIDine HCL 0.1 MG TABLET PO SCH ×2 (10:12→21:36)
[2016-10-18] MEDS: THIAMINE HCL 100 MG TABLET (FP) PO SCH (21:36)
[2016-10-18] MEDS: diphenhydrAMINE HCL 50 MG CAPSULE PO PRN (21:36)
[2016-10-19] MEDS: PRENATAL VITAMINS W/ FOLIC ACID TABLET (FP) PO SCH (09:53)
[2016-10-19] MEDS: cloNIDine HCL 0.1 MG TABLET PO SCH ×2 (09:53→21:24)
[2016-10-19] MEDS: NICOTINE 14 MG/24 HOURS TOPICAL PATCH TD SCH (09:53)
[2016-10-19] MEDS: hydrOXYzine PAMOATE 50 MG CAPSULE (FP) PO PRN (21:24)
[2016-10-19] MEDS: THIAMINE HCL 100 MG TABLET (FP) PO SCH (21:24)
[2016-10-20] MEDS: PRENATAL VITAMINS W/ FOLIC ACID TABLET (FP) PO SCH (09:57)
[2016-10-20] MEDS: cloNIDine HCL 0.1 MG TABLET PO SCH ×2 (09:57→21:30)
[2016-10-20] MEDS: NICOTINE 14 MG/24 HOURS TOPICAL PATCH TD SCH (09:57)
[2016-10-20] MEDS: diphenhydrAMINE HCL 50 MG CAPSULE PO PRN (21:29)
[2016-10-20] MEDS: THIAMINE HCL 100 MG TABLET (FP) PO SCH (21:29)
[2016-10-21] MEDS: NICOTINE 14 MG/24 HOURS TOPICAL PATCH TD SCH (10:12)
[2016-10-21] MEDS: PRENATAL VITAMINS W/ FOLIC ACID TABLET (FP) PO SCH (10:12)
[2016-10-21] MEDS: cloNIDine HCL 0.1 MG TABLET PO SCH ×2 (10:12→21:34)
[2016-10-21] MEDS: diphenhydrAMINE HCL 50 MG CAPSULE PO PRN (21:34)
[2016-10-21] MEDS: THIAMINE HCL 100 MG TABLET (FP) PO SCH (21:34)
[2016-10-22] MEDS: NICOTINE 14 MG/24 HOURS TOPICAL PATCH TD SCH (09:59)
[2016-10-22] MEDS: cloNIDine HCL 0.1 MG TABLET PO SCH ×2 (09:59→21:34)
[2016-10-22] MEDS: PRENATAL VITAMINS W/ FOLIC ACID TABLET (FP) PO SCH (09:59)
[2016-10-22] MEDS: hydrOXYzine PAMOATE 50 MG CAPSULE (FP) PO PRN (21:34)
[2016-10-22] MEDS: THIAMINE HCL 100 MG TABLET (FP) PO SCH (21:34)
[2016-10-22] MEDS: diphenhydrAMINE HCL 50 MG CAPSULE PO PRN (23:45)
[2016-10-23] MEDS: NICOTINE 14 MG/24 HOURS TOPICAL PATCH TD SCH (10:02)
[2016-10-23] MEDS: cloNIDine HCL 0.1 MG TABLET PO SCH ×2 (10:02→21:24)
[2016-10-23] MEDS: PRENATAL VITAMINS W/ FOLIC ACID TABLET (FP) PO SCH (10:02)
[2016-10-23] MEDS: diphenhydrAMINE HCL 50 MG CAPSULE PO PRN (21:24)
[2016-10-23] MEDS: THIAMINE HCL 100 MG TABLET (FP) PO SCH (21:24)
[2016-10-24] MEDS: PRENATAL VITAMINS W/ FOLIC ACID TABLET (FP) PO SCH (10:33)
[2016-10-24] MEDS: cloNIDine HCL 0.1 MG TABLET PO SCH ×2 (10:33→21:38)
[2016-10-24] MEDS: NICOTINE 14 MG/24 HOURS TOPICAL PATCH TD SCH (10:33)
[2016-10-24] MEDS ORDERED: PT OWN MED DRAWER 7, Y5N ONE (11:24)
[2016-10-24] MEDS: diphenhydrAMINE HCL 50 MG CAPSULE PO PRN (21:38)
[2016-10-24] MEDS: THIAMINE HCL 100 MG TABLET (FP) PO SCH (21:38)
[2016-10-25] MEDS: NICOTINE 14 MG/24 HOURS TOPICAL PATCH TD SCH ×2 (10:19→10:22)
[2016-10-25] MEDS: PRENATAL VITAMINS W/ FOLIC ACID TABLET (FP) PO SCH (10:20)
[2016-10-25] MEDS: cloNIDine HCL 0.1 MG TABLET PO SCH ×2 (10:20→21:21)
[2016-10-25] MEDS: THIAMINE HCL 100 MG TABLET (FP) PO SCH (21:21)
[2016-10-25] MEDS: diphenhydrAMINE HCL 50 MG CAPSULE PO PRN (21:21)
[2016-10-26] MEDS: PRENATAL VITAMINS W/ FOLIC ACID TABLET (FP) PO SCH (09:59)
[2016-10-26] MEDS: cloNIDine HCL 0.1 MG TABLET PO SCH ×2 (09:59→21:28)
[2016-10-26] MEDS: NICOTINE 14 MG/24 HOURS TOPICAL PATCH TD SCH (10:00)
[2016-10-26] MEDS: diphenhydrAMINE HCL 50 MG CAPSULE PO PRN (21:28)
[2016-10-26] MEDS: THIAMINE HCL 100 MG TABLET (FP) PO SCH (21:28)
[2016-10-27] MEDS: cloNIDine HCL 0.1 MG TABLET PO SCH ×2 (10:10→21:30)
[2016-10-27] MEDS: PRENATAL VITAMINS W/ FOLIC ACID TABLET (FP) PO SCH (10:10)
[2016-10-27] MEDS: NICOTINE 14 MG/24 HOURS TOPICAL PATCH TD SCH (10:10)
[2016-10-27] MEDS: THIAMINE HCL 100 MG TABLET (FP) PO SCH (21:29)
[2016-10-27] MEDS: diphenhydrAMINE HCL 50 MG CAPSULE PO PRN (21:29)
[2016-10-28] MEDS: NICOTINE 14 MG/24 HOURS TOPICAL PATCH TD SCH (10:19)
[2016-10-28] MEDS: cloNIDine HCL 0.1 MG TABLET PO SCH ×2 (10:19→21:43)
[2016-10-28] MEDS: PRENATAL VITAMINS W/ FOLIC ACID TABLET (FP) PO SCH (10:19)
[2016-10-28] MEDS: THIAMINE HCL 100 MG TABLET (FP) PO SCH (21:43)
[2016-10-28] MEDS: diphenhydrAMINE HCL 50 MG CAPSULE PO PRN (21:43)
[2016-10-29] MEDS: NICOTINE 14 MG/24 HOURS TOPICAL PATCH TD SCH (10:17)
[2016-10-29] MEDS: PRENATAL VITAMINS W/ FOLIC ACID TABLET (FP) PO SCH (10:18)
[2016-10-29] MEDS: cloNIDine HCL 0.1 MG TABLET PO SCH ×2 (10:18→21:15)
[2016-10-29] MEDS: diphenhydrAMINE HCL 50 MG CAPSULE PO PRN (21:15)
[2016-10-29] MEDS: THIAMINE HCL 100 MG TABLET (FP) PO SCH (21:15)
[2016-10-30] MEDS: PRENATAL VITAMINS W/ FOLIC ACID TABLET (FP) PO SCH (09:48)
[2016-10-30] MEDS: NICOTINE 14 MG/24 HOURS TOPICAL PATCH TD SCH (09:49)
[2016-10-30] MEDS: cloNIDine HCL 0.1 MG TABLET PO SCH ×2 (09:49→21:17)
[2016-10-30] MEDS: diphenhydrAMINE HCL 50 MG CAPSULE PO PRN (21:17)
[2016-10-30] MEDS: THIAMINE HCL 100 MG TABLET (FP) PO SCH (21:17)
[2016-10-31] MEDS: PRENATAL VITAMINS W/ FOLIC ACID TABLET (FP) PO SCH (10:20)
[2016-10-31] MEDS: NICOTINE 14 MG/24 HOURS TOPICAL PATCH TD SCH (10:21)
[2016-10-31] MEDS: cloNIDine HCL 0.1 MG TABLET PO SCH ×2 (10:21→21:55)
--- NOTE | 2016-10-31 12:16 | PN ---
Psychiatric Progress Note Vital Signs: Vital Signs Period Temp Pulse Resp BP Sys/Muniz Pulse Ox Last 24 Hr 96.4 F-97.8 F 80-97 18-20 119-128/76-79 Date of Session: 10/31/16 Chief Complaint:: Psychiatrist Discharge Note HPI: Patient addressing Alcohol Dependence comorbid with Nicotine Dependence ROS: GERD, HTN were medically managed Current Medications: Active Medications Generic Name Dose Route Start Last Admin Trade Name Freq PRN Reason Stop Dose Admin Acetaminophen 650 mg 10/04/16 11:41 Tylenol - PO Q4H PRN PAIN Al Hydroxide/Mg Hydroxide 30 ml 10/04/16 11:41 Mylanta Oral Suspension - PO Q6H PRN DYSPEPSIA Clonidine 0.1 mg 10/04/16 12:15 10/31/16 10:21 Catapres - PO 0.1 mg BID MONTY Administration Diphenhydramine HCl 50 mg 10/04/16 11:41 10/30/16 21:17 Benadryl - PO 50 mg HSMR1 PRN Administration INSOMNIA Eucalyptus/Menthol/Phenol/Sorbitol 1 each 10/04/16 11:41 Cepastat Lozenge - MM Q4H PRN SORE THROAT Guaifenesin 10 ml 10/04/16 11:41 Robitussin Dm - PO Q6H PRN COUGH Hydroxyzine Pamoate 50 mg 10/04/16 11:41 10/22/16 21:34 Vistaril - PO 50 mg Q4H PRN Administration AGITATION Ibuprofen 400 mg 10/04/16 11:41 Motrin - PO Q6H PRN SEVERE PAIN Loperamide HCl 4 mg 10/04/16 11:41 Imodium - PO Q6H PRN DIARRHEA Magnesium Citrate 300 ml 10/04/16 11:41 Citroma - PO Q48H PRN CONSTIPATION Magnesium Hydroxide 30 ml 10/04/16 11:41 Milk Of Magnesia - PO DAILY PRN CONSTIPATION Nicotine 14 mg 10/04/16 11:45 10/31/16 10:21 Nicoderm Patch - TD 14 mg DAILY MONTY Administration Nicotine Polacrilex 2 mg 10/04/16 11:41 Nicorette Gum - BUC Q2H PRN NICOTINE REPLACEMENT RX Multivit/Folic Acid/Iron 1 tab 10/05/16 10:00 10/31/16 10:20 Vitamins (Sjr) - PO 1 tab DAILY MONTY Administration Pseudoephedrine/Triprolidine 1 combo 10/04/16 11:41 Actifed - PO TID PRN NASAL CONGESTION Thiamine HCl 100 mg 10/04/16 22:00 10/30/16 21:17 Vitamin B1 - PO 100 mg HS MONTY Administration Current Side Effect: No Lab tests ordered: Yes Lab tests reviewed: Yes Provider note:: Patient will complete this program on 11/01/16. He has met his treatment goals and will continue to address his issues in outpatient treatment at [facility]. He verbalized understanding of negative the consequences of his addiction and the importance of establising a sober support network in order to maintian abstinence. He is stable for discharge on 11/01/16 Total face to face time:: 35 Mental Status Exam - Mental Status Exam Alert and Oriented to: Time, Place, Person Cognitive Function: Fair Patient Appearance: Well Groomed Mood: Hopeful, Euthymic Affect: Appropriate Patient Behavior: Cooperative Speech Pattern: Clear Voice Loudness: Normal Thought Process: Intact Thought Disorder: Not Present Hallucinations: Denies Suicidal Ideation: Denies Homicidal Ideation: Denies Insight/Judgement: Fair Sleep: Fair Appetite: Good Muscle strength/Tone: Normal Gait/Station: Normal Psychiatric Treatment Plan - Problem List (1) Alcohol dependence with uncomplicated withdrawal Current Visit: No (2) Nicotine dependence unspecified, with withdrawal Current Visit: No (3) GERD (gastroesophageal reflux disease) Current Visit: Yes Initial treatment plan: Patient will be discharged tomorrow and referred to [facility] for outpatient treatment
[2016-10-31] MEDS: THIAMINE HCL 100 MG TABLET (FP) PO SCH (21:55)
[2016-10-31] MEDS: diphenhydrAMINE HCL 50 MG CAPSULE PO PRN (21:56)
[2016-11-01 06:55] VITALS: BP 123/68; PULSE 88; TEMP 98.3
[2016-11-01] MEDS: PRENATAL VITAMINS W/ FOLIC ACID TABLET (FP) PO SCH (09:40)
[2016-11-01] MEDS: cloNIDine HCL 0.1 MG TABLET PO SCH (09:40)
[2016-11-01] MEDS: NICOTINE 14 MG/24 HOURS TOPICAL PATCH TD SCH (09:40)
== END 2016-11-01 09:40 | disposition home or self-care (01) | DRG 772 ==
LOC: YASAS 09:27 → Y3W 11:41
PROVIDERS: ADMIT Psychiatry & Neurology Psychiatry; ATTEND Psychiatry & Neurology Psychiatry
PROC: HZ42ZZZ Group Counseling for Substance Abuse Treatment, Cognitive-Behavioral (ICD-10-PCS; principal; 2016-11-01)
DX: F10.230 Alcohol dependence with withdrawal, uncomplicated (principal); F17.213 Nicotine dependence, cigarettes, with withdrawal; K21.9 Gastro-esophageal reflux disease without esophagitis
CPT/HCPCS: 81003

== ENCOUNTER 2018-12-16 07:47 | Emergency (ER) | payer OTHER ==
--- NOTE | 2018-12-16 07:55 | PDOC ---
History of Present Illness - General Chief Complaint: Pain, Acute Stated Complaint: PAIN Time Seen by Provider: 12/16/18 07:54 - History of Present Illness Initial Comments: 12/16/18 07:55 Mr. Norton is a 33 yo male w/ pmh of HTN, HLD, gastritis, alcohol abuse who presents for evaluation of 2 day history of RUQ abdominal pain w/ additional multiple episodes of yellow vomit. Patient has never had symptoms like this before. Patient also reports that yesterday he drank a pint of may - symptoms had started prior to this however. Denies any other complaints at this time. The patient denies chest pain, shortness of breath, headache and dizziness. Denies fever, chills, diarrhea and constipation. Denies dysuria, frequency, urgency and hematuria. Past History - Past Medical History Allergies/Adverse Reactions: Allergies Allergy/AdvReac Type Severity Reaction Status Date / Time No Known Allergies Allergy Verified 12/16/18 12:22 Home Medications: Ambulatory Orders Clonidine HCl [Clonidine HCl ER] 0.1 mg PO BID #30 mg 10/31/16 Anemia: No Asthma: No Cancer: No Cardiac Disorders: No CVA: No COPD: No CHF: No Dementia: No Diabetes: No GI Disorders: No Disorders: No HTN: Yes Hypercholesterolemia: No Kidney Stones: No Liver Disease: No Seizures: No Thyroid Disease: No - Surgical History Abdominal Surgery: No Appendectomy: Yes (at age 25) Cardiac Surgery: No Cholecystectomy: No Lung Surgery: No Neurologic Surgery: No Orthopedic Surgery: No - Reproductive History Testicular Surgery: No - Immunization History Immunization Up to Date: Yes - Suicide/Smoking/Psychosocial Hx Smoking History: Former smoker Have you smoked in the past 12 months: No Number of Cigarettes Smoked Daily: 3 If you are a former smoker, when did you quit?: 2016 Cigars Per Day: 0 Information on smoking cessation initiated: No 'Breaking Loose' booklet given: 09/28/16 Hx Alcohol Use: Yes Drug/Substance Use Hx: No Substance Use Type: Alcohol (Started drinking alcohol at age 16, consumes one pint of rum & 2x 12oz of beer daily. Last drink on 09/28/16) Hx Substance Use Treatment: Yes (2 previous inpt detox @ [facility]. [facility] inpt rehab) Review of Systems - Review of Systems Comments:: 12/16/18 07:55 GENERAL/CONSTITUTIONAL: No fever or chills. No weakness. HEAD, EYES, EARS, NOSE AND THROAT: No change in vision. No ear pain or discharge. No sore throat. CARDIOVASCULAR: No chest pain or shortness of breath RESPIRATORY: No cough, wheezing, or hemoptysis. GASTROINTESTINAL: +N/V/RUQ pain as described. No diarrhea or constipation. GENITOURINARY: No dysuria, frequency, or change in urination. MUSCULOSKELETAL: No joint or muscle swelling or pain. No neck or back pain. SKIN: No rash NEUROLOGIC: No headache, vertigo, loss of consciousness, or change in strength/ sensation. ENDOCRINE: No increased thirst. No abnormal weight change HEMATOLOGIC/LYMPHATIC: No anemia, easy bleeding, or history of blood clots. ALLERGIC/IMMUNOLOGIC: No hives or skin allergy. *Physical Exam - Vital Signs Last Vital Signs Temp Pulse Resp BP Pulse Ox 98.5 F 132 H 20 138/102 H 98 12/16/18 07:53 12/16/18 07:53 12/16/18 07:53 12/16/18 07:53 12/16/18 07:53 - Physical Exam Comments: 12/16/18 07:55 GENERAL: Awake, alert, and fully oriented, in no acute distress HEAD: No signs of trauma, normocephalic, atraumatic EYES: PERRLA, EOMI, sclera anicteric, conjunctiva clear ENT: Auricles normal inspection, hearing grossly normal, nares patent, oropharynx clear without exudates. Moist mucosa NECK: Normal ROM, supple, no lymphadenopathy, JVD, or masses LUNGS: No distress, speaks full sentences, clear to auscultation bilaterally HEART: Regular rate and rhythm, normal S1 and S2, no murmurs, rubs or gallops, peripheral pulses normal and equal bilaterally. ABDOMEN: +RUQ/Epigastric TTP. Soft, normoactive bowel sounds. No guarding, no rebound. No masses EXTREMITIES: Normal inspection, Normal range of motion, no edema. No clubbing or cyanosis. NEUROLOGICAL: Cranial nerves II through XII grossly intact. Normal speech, normal gait, no focal sensorimotor deficits SKIN: Warm, Dry, normal turgor, no rashes or lesions noted. ED Treatment Course - LABORATORY CBC & Chemistry Diagram: 12/16/18 08:25 12/16/18 08:25 Medical Decision Making - Medical Decision Making 12/16/18 08:46 Mr. Norton is a 33 yo male w/ pmh as described who presents for evaluation of symptoms concerning for cholecystitis vs. pancreatitis vs. other abdominal process. 12/16/18 15:26 Patient evaluated with RUQ US significant only for fatty liver. CT abd/pelvis ordered for continued evaluation given patient's continued pain. CT confirms diffuse fatty liver w/out other process. Labs significant for elevated liver enzymes likely 2/2 alcohol use. Patient hydrated and counseled on alcohol avoidance and the need to f/u outpatient with PCP. Patient tolerated PO without difficulty. Patient verbalized understanding and agreement and will comply. No concern for other acute process at this time. Discharging to home. 12/16/18 16:10 Patient noted to have elevated temperature at discharge to 100.4. CXR performed to r/o additional illness. 12/16/18 16:46 CXR negative. Suspect temperature 2/2 viral illness likely contributing to abdominal pain. Patient has been evaluated with CT scan, laboratory anaylsis, and CXR making acute cause of elevated temperature unlikely at this time. Discharging to home. Laboratory Results - last 24 hr 12/16/18 12/16/18 12/16/18 08:25 08:25 08:25 WBC 6.2 RBC 5.48 Hgb 16.8 Hct 49.3 H D MCV 90.0 MCH 30.6 MCHC 34.0 RDW 14.0 D Plt Count 244 MPV 7.9 Absolute Neuts (auto) 4.5 Neutrophils % 72.6 Lymphocytes % 18.1 Monocytes % 8.5 Eosinophils % 0.1 D Basophils % 0.7 Nucleated RBC % 0 PT with INR 11.80 INR 1.00 PTT (Actin FS) 33.8 Sodium 137 Potassium 4.0 Chloride 103 Carbon Dioxide 22 Anion Gap 12 BUN 8 Creatinine 0.9 Est GFR (CKD-EPI)AfAm 129.61 Est GFR (CKD-EPI)NonAf 111.83 Random Glucose 149 H Calcium 8.4 L Total Bilirubin 1.0 AST 112 H ALT 82 H Alkaline Phosphatase 85 Total Protein 7.9 Albumin 3.9 Lipase 171 Urine Color Urine Appearance Urine pH Ur Specific [place] Urine Protein Urine Glucose (UA) Urine Ketones Urine Blood Urine Nitrite Urine Bilirubin Urine Urobilinogen Ur Leukocyte Esterase Urine WBC (Auto) Urine RBC (Auto) Urine Casts (Auto) U Epithel Cells (Auto) Urine Bacteria (Auto) 12/16/18 14:18 WBC RBC Hgb Hct MCV MCH MCHC RDW Plt Count MPV Absolute Neuts (auto) Neutrophils % Lymphocytes % Monocytes % Eosinophils % Basophils % Nucleated RBC % PT with INR INR PTT (Actin FS) Sodium Potassium Chloride Carbon Dioxide Anion Gap BUN Creatinine Est GFR (CKD-EPI)AfAm Est GFR (CKD-EPI)NonAf Random Glucose Calcium Total Bilirubin AST ALT Alkaline Phosphatase Total Protein Albumin Lipase Urine Color Yellow Urine Appearance Clear Urine pH 6.0 D Ur Specific [place] 1.030 Urine Protein 1+ H Urine Glucose (UA) Negative Urine Ketones 1+ H Urine Blood Trace Urine Nitrite Negative Urine Bilirubin Negative Urine Urobilinogen 1.0 Ur Leukocyte Esterase Negative Urine WBC (Auto) 1 Urine RBC (Auto) 4 Urine Casts (Auto) 9 U Epithel Cells (Auto) 0.9 Urine Bacteria (Auto) 7.1 *DC/Admit/Observation/Transfer Diagnosis at time of Disposition: Abdominal pain Qualifiers: Abdominal location: unspecified location Qualified Code(s): R10.9 - Unspecified abdominal pain - Discharge Dispostion Disposition: HOME - Referrals Referrals: Isrrael Malloy MD [Staff Physician] - - Patient Instructions Printed Discharge Instructions: DI for Alcohol Abuse Additional Instructions: You were evaluated today in the ER for your abdominal pain. We performed ultrasound as well as CT evaluation with findings only of fatty liver. We also noted your liver enzymes to be elevated. This is likely secondary to alcohol use - please stop all alcohol consumption immediately. Please follow-up with primary care provider early this week for further evaluation. We have also provided you with gastroenterology follow-up that you may use for further evaluation if desired. Return to ER if any increase in pain, nausea, vomiting, or other concerning symptoms. - Post Discharge Activity
[2018-12-16 07:56] VITALS: BMI 25.0
[2018-12-16] MEDS ORDERED: SODIUM CHLORIDE 1,000 ML IV STA (08:04)
[2018-12-16] MEDS ORDERED: FAMOTIDINE 20 MG/50 ML IVPB 20 MG/50 ML MG IVPB ONE ×2 (08:04→09:38)
[2018-12-16] MEDS ORDERED: ONDANSETRON 4 MG/2 ML VIAL IVPUSH ONE (08:04)
--- NOTE | 2018-12-16 08:44 | PDOC ---
Attending Attestation - Resident Resident Name: Mendel Grullon - ED Attending Attestation I have performed the following: I have examined & evaluated the patient, The case was reviewed & discussed with the resident, I agree w/resident's findings & plan, Exceptions are as noted - HPI HPI: 12/16/18 08:43 33yo M hx HTN, HL, gastritis, etoh abuse presents with 2 days of RUQ pain a/w NBNB emesis Was sober x2 years Drank pint of may yesterday Took pepcid with minimal relief
[2018-12-16 08:48] LABS: BASO % 0.7 % (0-2.0); EOS % 0.1 % (0-4.5); HEMATOCRIT 49.3 % (35.4-49); HEMOGLOBIN 16.8 GM/dL (11.7-16.9); LYMPH % 18.1 % (8-40); MCH 30.6 pg (25.7-33.7); MEAN PLT VOLUME 7.9 fl (7.5-11.1); MONO % 8.5 % (3.8-10.2); NEUT % 72.6 % (42.8-82.8); PLATELET COUNT 244 K/MM3 (134-434); RBC 5.48 M/mm3 (4.00-5.60); WHITE BLOOD COUNT 6.2 K/mm3 (4.0-10.0)
[2018-12-16 09:01] LABS: PROTHROMBIN TIME (PATIENT) 11.8 SEC (9.7-13.0)
[2018-12-16 09:04] LABS: ACTIVATED PTT 33.8 SECONDS (25.2-36.5)
[2018-12-16 09:18] LABS: ALBUMIN 3.9 g/dl (3.4-5.0); CALCIUM 8.4 mg/dL (8.5-10.1); CREATININE 0.9 mg/dL (0.55-1.3); TOT PROT 7.9 g/dl (6.4-8.2)
[2018-12-16] MEDS ORDERED: morphine CARPU-JECT 2 MG/1 ML DISP.SYRIN IVPUSH ONE (09:30)
[2018-12-16] MEDS ORDERED: morphine SULFATE 4 MG/ML VIAL ONE (09:38)
[2018-12-16] MEDS ORDERED: ONDANSETRON 4 MG/2 ML VIAL ONE (09:38)
--- NOTE | 2018-12-16 11:00 | PDOC ---
Documentation entered by Kar East SCRIBE, acting as scribe for Tanya Downey MD. Tanya Downey MD: This documentation has been prepared by the Cruzito rios Daniel, SCRIBE, under my direction and personally reviewed by me in its entirety. I confirm that the documentation accurately reflects all work, treatment, procedures, and medical decision making performed by me. Attending Attestation - Resident Resident Name: Mendel Grullon - ED Attending Attestation I have performed the following: I have examined & evaluated the patient, The case was reviewed & discussed with the resident, I agree w/resident's findings & plan, Exceptions are as noted - HPI HPI: 12/16/18 10:29 The patient is a 33 year old male with a past medical history of HTN, etoh abuse here today for evaluation of epigastric pain. The patient reports that his epigastric pain began yesterday around 11 AM after drinking a pint of may. The pain at times radiates to his right upper quadrant, and has been constant. He also notes associated vomiting all day yesterday and notes that the emesis was yellow in color (non bloody, non bilious) and that he was not able to tolerate any PO intake. He reports a subjective fever but has not taken his temperature. Prior to drinking a pint of may yesterday, he states he had not drank for 2 years. Denies drug use. No treatments tried. Patient denies headache, lightheadedness, focal weakness/numbness. Denies chills. Denies chest pain, shortness of breath. Denies nausea, diarrhea. Allergies: NKA Social history: Patient reports that he quit drinking alcohol 2 years ago but drank again yesterday. PCP: none - Physicial Exam PE: 12/16/18 10:57 GENERAL: Awake, alert, and fully oriented, in no acute distress HEAD: No signs of trauma EYES: PERRLA, EOMI, sclera anicteric, conjunctiva clear ENT: Nares patent, oropharynx clear without exudates. Moist mucosa NECK: Normal ROM, supple, no lymphadenopathy, JVD, or masses LUNGS: Breath sounds equal, clear to auscultation bilaterally. No wheezes, and no crackles HEART: Regular rate and rhythm, normal S1 and S2, no murmurs, rubs or gallops ABDOMEN: Soft, nontender, normoactive bowel sounds. No guarding, no rebound. No masses EXTREMITIES: Normal range of motion, no edema. No cords, erythema, or tenderness NEUROLOGICAL: Normal speech, cranial nerves intact, equal strength and sensation b/l SKIN: Warm, Dry, normal turgor, no rashes or lesions noted. - Medical Decision Making 12/16/18 10:58 33yo M hx HTN (no longer on meds as well controlled) presents to the ED with epigastric radiating to RUQ pain since 11am last night after drinking a pint of may. Vitals with tachycardia, elevated BP on arrival. Exam unremarkable with non focal abd exam. DDx includes pancreatitis vs gastritis vs hepatitis vs cholecystitis. Plan for labs, US, IVF, pain control, reassess. 12/16/18 13:54 Labs with mild LFT bump, AST>ALT consistent with recent etoh intake US negative for acute pathology Remaining labs wnl Pain improved in epigastric area, but persistent thus CTAP ordered 12/16/18 15:57 CTAP neg for acute pathology Likely alcoholic gastritis vs hepatitis All results discussed with pt Pain as improved significantly Pt is tolerating PO I discussed the physical exam findings, ancillary test results and final diagnoses with the patient. I answered all of the patient's questions. The patient was satisfied with the care received and felt comfortable with the discharge plan and treatment plan. The patient will call their primary care physician within 24 hours to arrange follow-up and will return to the Emergency Department with any new, persistent or worsening symptoms. 12/16/18 17:10 FEver??
[2018-12-16] MEDS ORDERED: METOCLOPRAMIDE HCL INJECTION 10 MG/2 ML VIAL IVPB ONE (11:53)
[2018-12-16] MEDS ORDERED: METOCLOPRAMIDE HCL INJECTION 10 MG/2 ML VIAL ONE (11:58)
[2018-12-16 14:27] LABS: EPI CELLS 0.9 /HPF (0-5/HPF); URINE APPEARANCE CLEAR; URINE BACTERIA 7.1 /hpf (NEGATIVE); URINE BILIRUBIN NEGATIVE (NEGATIVE); URINE CASTS 9 /lpf (0-8); URINE COLOR YELLOW; URINE GLUCOSE (UA) NEGATIVE (NEGATIVE); URINE KETONE 1+ (NEGATIVE); URINE LEUK ESTERASE NEGATIVE (NEGATIVE); URINE NITRITE NEGATIVE (NEGATIVE); URINE PROTEIN 1+ (NEGATIVE); URINE RBC 4 /hpf (0-4); URINE WBC 1 /hpf (0-5)
[2018-12-16] MEDS ORDERED: ACETAMINOPHEN 325 MG TABLET (FP) PO ONE (16:04)
[2018-12-16] MEDS ORDERED: ACETAMINOPHEN 325 MG TABLET (FP) ONE (16:05)
[2018-12-16 17:22] VITALS: BP 138/92; PULSE 96; TEMP 100.4
== END 2018-12-16 17:22 | disposition home or self-care (01) ==
LOC: JER 07:47
PROC: 3E033GC Introduction of Other Therapeutic Substance into Peripheral Vein, Percutaneous Approach (ICD-10-PCS; principal; 2018-12-16)
PROC: 3E033NZ Introduction of Analgesics, Hypnotics, Sedatives into Peripheral Vein, Percutaneous Approach (ICD-10-PCS; 2018-12-16)
PROC: 3E0337Z Introduction of Electrolytic and Water Balance Substance into Peripheral Vein, Percutaneous Approach (ICD-10-PCS; 2018-12-16)
DX: R10.9 Unspecified abdominal pain (principal); Z87.891 Personal history of nicotine dependence; I10 Essential (primary) hypertension
CPT/HCPCS: 36415; 71046-TC-FY; 74177-TC; 76705-TC; 80053; 81003; 83690; 85025; 85610; 85730; 99281-25; J7030

== ENCOUNTER 2020-02-13 09:01 | Inpatient (IN) | payer OTHER ==
--- NOTE | 2020-02-13 09:07 | PDOC ---
Rapid Medical Evaluation Chief Complaint: Psychiatric Time Seen by Provider: 02/13/20 09:03 Medical Evaluation: Allergies Allergy/AdvReac Type Severity Reaction Status Date / Time No Known Allergies Allergy Verified 12/16/18 12:22 02/13/20 09:03 I performed a brief in-person evaluation of this patient. Pt is a 34 y/o male with h/o HTN who presents to the ED with hand/foot cramps, mouth numbness, and feeling as if he can't breathe intermittently since yesterday. He presented to triage hyperventilating and stating his throat was dry. He denies any recent illness, recent travel. Pt admits to drinking alcohol daily and stopped drinking this past Monday. He was drinking half a vannessa ttle of alcohol daily Pt was vomiting on Monday. Pertinent physical exam findings: + hyperventilation, speaking in full and complete sentences, + hand tremors, no tongue fasciculation. Very dry oral mucosa. + icterus I have ordered the following: saline lock, labs, banana bag, ekg, cxr Patient to proceed to ED for further evaluation. Discharge Disposition - Diagnosis Alcohol withdrawal - Referrals - Patient Instructions - Post Discharge Activity
[2020-02-13 09:08] VITALS: BMI 24.7
[2020-02-13] MEDS ORDERED: SODIUM CHLORIDE 1,000 ML IV STA (09:08)
[2020-02-13] MEDS ORDERED: FOLIC ACID INJECTION - 1 MG, THIAMINE HCL 100 MG, MULTIVIT INJECTION ADULT 10 ML in SOD... IVPB ONE (09:09)
[2020-02-13] MEDS ORDERED: chlordiazePOXIDE HCL 25 MG CAPSULE PO ONE (09:37)
[2020-02-13] MEDS ORDERED: chlordiazePOXIDE HCL 25 MG CAPSULE ONE (09:40)
--- NOTE | 2020-02-13 09:48 | PDOC ---
History of Present Illness - History of Present Illness Initial Comments: 02/13/20 09:39 HPI: 34 y/o M with hx of HTN, HLD, gastritis, alcohol abuse presenting with whole body shaking and concern for alcohol withdrawal. Patient reports drinking 1/2bottle of may everyday for the last 2 years but had been drinking more this past weekend, up to 1 bottle a day. He reports last drink was 4 days ago because it was too hot and he needed to work. The following 2 days he reports abd pain, nausea, emesis and feeling hungover. Reports tolerating fluids. Today, about an hour presentation, he went to work but has been shaking all over his body. He also reports subj feverc, chills, diaphoresis, and anxiety. Also reports some non-exertional SOB. Denies chest pain. Still reports abd pain in the RUQ and epigastric region. PMHx: as noted above ROS: as noted SHx: Denies tobacco use; +heavy alcohol use; no rec drugs Allergies: NKDA ROS: GENERAL/CONSTITUTIONAL: +fever or chills. No weakness. HEAD, EYES, EARS, NOSE AND THROAT: No change in vision. No ear pain or discharge. No sore throat. CARDIOVASCULAR: No chest pain; +shortness of breath RESPIRATORY: No cough, wheezing, or hemoptysis. GASTROINTESTINAL: +nausea, vomiting; no diarrhea or constipation. GENITOURINARY: No dysuria, frequency, or change in urination. MUSCULOSKELETAL: No joint or muscle swelling or pain. No neck or back pain. SKIN: No rash NEUROLOGIC: No headache, vertigo, loss of consciousness, or change in strength/sensation. ENDOCRINE: No increased thirst. No abnormal weight change HEMATOLOGIC/LYMPHATIC: No anemia, easy bleeding, or history of blood clots. ALLERGIC/IMMUNOLOGIC: No hives or skin allergy. PE: GENERAL: Awake, alert, and fully oriented, tremulous, diaphoretic HEAD: No signs of trauma, normocephalic, atraumatic EYES: EOMI, scleral icterus, conjunctiva clear ENT: Auricles normal inspection, hearing grossly normal, nares patent, oropharynx clear without exudates. dry mucosa, tongue fasicullations NECK: Normal ROM, no lymphadenopathy LUNGS: No increased work of breathing, symmetrical chest rise, clear to auscultation bilaterally, no wheezes, crackles or rhonchi HEART: tachycardic, regular rhythm, normal S1 and S2, no murmur, peripheral puls es 2+ and equal bilaterally. ABDOMEN: Soft, nondistended, ttp in RUQ and epigastric region, No guarding, no rebound. No masses. No CVAT MUSCULOSKELETAL: FROM NEUROLOGICAL: Cranial nerves II through XII grossly intact. Normal speech, no focal sensorimotor deficits SKIN: Warm, Dry, normal turgor, no rashes or lesions noted <Smitha Levine - Last Filed: 02/13/20 12:41> <Sharmin Maldonado - Last Filed: 02/13/20 14:59> - General Chief Complaint: Alcohol intoxication Stated Complaint: ETOH WITHDRAWAL Time Seen by Provider: 02/13/20 09:03 Past History - Medical History Anemia: No Asthma: No Cancer: No Cardiac Disorders: No CVA: No COPD: No CHF: No Dementia: No Diabetes: No GI Disorders: No Disorders: No HTN: Yes Hypercholesterolemia: No Kidney Stones: No Liver Disease: No Seizures: No Thyroid Disease: No - Surgical History Abdominal Surgery: No Appendectomy: Yes (at age 25) Cardiac Surgery: No Cholecystectomy: No Lung Surgery: No Neurologic Surgery: No Orthopedic Surgery: No - Reproductive History Testicular Surgery: No - Immunization History Immunization Up to Date: Yes - Psycho-Social/Smoking History Smoking History: Never smoked Have you smoked in the past 12 months: No Number of Cigarettes Smoked Daily: 3 Cigars Per Day: 0 Information on smoking cessation initiated: No 'Breaking Loose' booklet given: 09/28/16 - Substance Abuse Hx (Audit-C & DAST Scrn) How often the patient has a drink containing alcohol: 4 0r more times/wk Number of drinks the patient has on a typical day: 5 or 6 How often the patient has six or more drinks on one occasion: Daily or almost daily Score: In Men: 4 or > Positive; In Women: 3 or > Positive: 10 Screen Result (Pos requires Nsg. Audit-10AR): Positive In the last yr the pt used illegal drug/Rx for NonMed reason: No Score: Yes response is considered Positive: 0 Screen Result (Positive result requires Nsg. DAST-10): Negative <Smitha Levine - Last Filed: 02/13/20 12:41> <Sharmin Maldonado - Last Filed: 02/13/20 14:59> - Medical History Allergies/Adverse Reactions: Allergies Allergy/AdvReac Type Severity Reaction Status Date / Time No Known Allergies Allergy Verified 02/13/20 10:00 Home Medications: Ambulatory Orders NK [No Known Home Medication] 02/13/20 *Physical Exam - Vital Signs Last Vital Signs Temp Pulse Resp BP Pulse Ox 98.5 F 151 H 17 129/86 100 02/13/20 09:02 02/13/20 09:02 02/13/20 09:02 02/13/20 09:02 02/13/20 09:02 <Smitha Levine - Last Filed: 02/13/20 12:41> - Vital Signs Last Vital Signs Temp Pulse Resp BP Pulse Ox 98.5 F 102 H 17 123/80 94 L 02/13/20 09:02 02/13/20 12:53 02/13/20 12:53 02/13/20 12:53 02/13/20 12:53 <Sharmin Maldonado - Last Filed: 02/13/20 14:59> ED Treatment Course - LABORATORY CBC & Chemistry Diagram: 02/13/20 09:30 02/13/20 09:30 <Smitha Levine - Last Filed: 02/13/20 12:41> - LABORATORY CBC & Chemistry Diagram: 02/13/20 09:30 02/13/20 09:30 - ADDITIONAL ORDERS Additional order review: Laboratory Results 02/13/20 02/13/20 02/13/20 12:57 12:57 10:08 PT with INR INR PTT (Actin FS) Sodium Potassium Chloride Carbon Dioxide Anion Gap BUN Creatinine Est GFR (CKD-EPI)AfAm Est GFR (CKD-EPI)NonAf POC Glucometer 136 Random Glucose Calcium Magnesium Total Bilirubin AST ALT Alkaline Phosphatase Creatine Kinase Creatine Kinase Index CK-MB (CK-2) Troponin I Total Protein Albumin Beta-Hydroxybutyrate Urine Color Dk yellow Urine Appearance Clear Urine pH 6.5 Ur Specific [place] 1.005 L Urine Protein Negative Urine Glucose (UA) Negative Urine Ketones Negative Urine Blood Negative Urine Nitrite Negative Urine Bilirubin 1+ H Urine Urobilinogen >=8.0 e.u./dl Ur Leukocyte Esterase Negative Ur Random Creatinine 34.0 Ur Random Sodium < 18 L Alcohol, Quantitative 02/13/20 02/13/20 02/13/20 09:40 09:30 09:30 PT with INR 15.10 H INR 1.28 H PTT (Actin FS) 38.5 H Sodium 122 L Potassium 2.6 L* Chloride 73 L Carbon Dioxide 26 Anion Gap 23 H BUN 21.4 H Creatinine 1.7 H Est GFR (CKD-EPI)AfAm 59.65 Est GFR (CKD-EPI)NonAf 51.47 POC Glucometer Random Glucose 162 H Calcium 8.8 Magnesium 1.5 L Total Bilirubin 10.6 H AST 338 H ALT 74 H Alkaline Phosphatase 384 H Creatine Kinase 197 Creatine Kinase Index No Result Required. CK-MB (CK-2) < 1.0 Troponin I 0.16 H Total Protein 8.4 H Albumin 3.7 Beta-Hydroxybutyrate Urine Color Urine Appearance Urine pH Ur Specific [place] Urine Protein Urine Glucose (UA) Urine Ketones Urine Blood Urine Nitrite Urine Bilirubin Urine Urobilinogen Ur Leukocyte Esterase Ur Random Creatinine Ur Random Sodium Alcohol, Quantitative 54.5 H 02/13/20 09:30 PT with INR INR PTT (Actin FS) Sodium Potassium Chloride Carbon Dioxide Anion Gap BUN Creatinine Est GFR (CKD-EPI)AfAm Est GFR (CKD-EPI)NonAf POC Glucometer Random Glucose Calcium Magnesium Total Bilirubin AST ALT Alkaline Phosphatase Creatine Kinase Creatine Kinase Index CK-MB (CK-2) Troponin I Total Protein Albumin Beta-Hydroxybutyrate 7.3 H Urine Color Urine Appearance Urine pH Ur Specific [place] Urine Protein Urine Glucose (UA) Urine Ketones Urine Blood Urine Nitrite Urine Bilirubin Urine Urobilinogen Ur Leukocyte Esterase Ur Random Creatinine Ur Random Sodium Alcohol, Quantitative 02/13/20 02/13/20 10:08 09:30 RBC 4.10 MCV 101.2 H MCHC 35.5 RDW 12.7 MPV 9.8 D Neutrophils % 76.2 Lymphocytes % 12.4 D Monocytes % 10.9 H Eosinophils % 0.2 D Basophils % 0.3 POC Glucometer 136 - Medications Given in the ED: ED Medications Discontinued Medications Generic Name Dose Route Start Last Admin Trade Name Freq PRN Reason Stop Dose Admin Al Hydroxide/Mg Hydroxide 30 ml 02/13/20 12:27 02/13/20 12:52 Mylanta Oral Suspension - PO 02/13/20 12:28 30 ml ONCE ONE Administration Chlordiazepoxide HCl 50 mg 02/13/20 09:37 02/13/20 09:50 Librium - PO 02/13/20 09:38 50 mg ONCE ONE Administration Sodium Chloride 1,000 mls @ 1,000 mls/hr 02/13/20 09:08 02/13/20 09:45 Normal Saline - IV 02/13/20 10:07 1,000 mls/hr .Q1H STA Administration Famotidine/Sodium Chloride 20 mg in 50 mls @ 100 mls/hr 02/13/20 12:27 12:52 Pepcid 20 Mg Premixed Ivpb - IVPB 02/13/20 12:56 100 mls/hr ONCE ONE Administration Lorazepam 4 mg 02/13/20 09:49 02/13/20 10:00 Ativan Injection - IVPUSH 02/13/20 09:50 4 mg ONCE ONE Administration Magnesium Sulfate 2 gm 02/13/20 12:37 02/13/20 12:52 Magnesium Sulfate IVPB 02/13/20 12:38 2 gm ONCE ONE Administration Potassium Chloride 40 meq 02/13/20 11:45 02/13/20 12:00 K-Dur - PO 02/13/20 11:46 40 meq ONCE ONE Administration <Sharmin Maldonado - Last Filed: 02/13/20 14:59> Medical Decision Making - Medical Decision Making 02/13/20 12:55 34 y/o M with hx of HTN, HLD, gastritis, alcohol abuse presenting with whole body shaking and concern for alcohol withdrawal. HR 150s. PE with scleral icterus, tremlousness, RUQ/epigastric ttp -cbc, cmp, coags, card prof, Mg, ekg, cxr, RUQ US -banana bag, ativan, pepcid, maalox, librium, ivf bolus 02/13/20 12:56 NORI; will obtain UA, UCr, Kandice K low 2.6 Mg 1.5 replete Mg and K HR improved to 100s following intervention pending US and will admit <Smitha Levine - Last Filed: 02/13/20 12:41> - Critical Care Time Total Critical Care Time (minutes): 45 (acute alcohol withdrawal, metabolic derangements) Critical Care Statement: The care of this patient involved high complexity decision making to prevent further life threatening deterioration of the patient's condition and/or to evaluate & treat vital organ system(s) failure or risk of failure. <Sharmin Maldonado - Last Filed: 02/13/20 14:59> Discharge - Discharge Information Problems reviewed: Yes - Admission Yes <Smitha Levine - Last Filed: 02/13/20 12:41> <Sharmin Maldonado - Last Filed: 02/13/20 14:59> - Discharge Information Clinical Impression/Diagnosis: Alcohol withdrawal, Elevated troponin, Hyperbilirubinemia, Alcoholic hepatitis, Hypokalemia, Hypomagnesemia Condition: Guarded
[2020-02-13] MEDS ORDERED: LORazepam 2 MG/ML SDV VIAL ONE (09:53)
[2020-02-13 10:13] LABS: BASO % 0.3 % (0-2.0); EOS % 0.2 % (0-4.5); HEMATOCRIT 41.5 % (35.4-49); HEMOGLOBIN 14.7 GM/dL (11.7-16.9); LYMPH % 12.4 % (8-40); MCH 35.9 pg (25.7-33.7); MCHC 35.5 g/dl (32.0-35.9); MEAN CELL VOLUME 101.2 fl (80-96); MEAN PLT VOLUME 9.8 fl (7.5-11.1); MONO % 10.9 % (3.8-10.2); NEUT % 76.2 % (42.8-82.8); PLATELET COUNT 208 K/MM3 (134-434); RDW 12.7 % (11.9-15.9)
--- NOTE | 2020-02-13 10:14 | PDOC ---
Attending Attestation - Resident Resident Name: Smitha Levine - ED Attending Attestation I have performed the following: I have examined & evaluated the patient, The case was reviewed & discussed with the resident, I agree w/resident's findings & plan - HPI HPI: 02/13/20 10:13 34 y/o M with hx of HTN, HLD, gastritis, alcohol abuse presenting with whole body shaking and concern for alcohol withdrawal. Patient reports drinking 1/2bottle of may everyday for the last 2 years but had been drinking more this past weekend, up to 1 bottle a day. He reports last drink was 4 days ago because it was too hot and he needed to work. The following 2 days he reports abd pain, nausea, emesis and feeling hungover. Reports tolerating fluids. Today, about an hour presentation, he went to work but has been shaking all over his body. He also reports subj feverc, chills, diaphoresis, and anxiety. Also reports some non-exertional SOB. Denies chest pain. Still reports abd pain in the RUQ and epigastric region. - Physicial Exam PE: 02/13/20 10:14 General: Well appearing, awake and alert, NAD. HEENT: NCAT, PERRL, EOMI, clear conjunctiva, anicteric, moist mucous membranes, clear oropharynx, no oral lesions.. Neck: neck supple, FROM Resp: CTAB, normal and even respirations, no respiratory distress CVS: RRR, no murmurs, 2+ peripheral pulses throughout, no peripheral edema Abdomen: soft, NTND, no rebound or guarding. No CVAT. MSK: no edema, LITTLEJOHN x4, ROM intact. No clubbing or cyanosis. normal bulk and tone. Extremities: no calf tenderness Neuro: alert, oriented appropriately; no focal neurologic deficits Skin: warm and well perfused, cap refill <2 sec, normal color very tremulous, +tongue fasciculations +scleral icterus 02/13/20 14:57 - Critical Care Time Total Critical Care Time: 45 (acute alcohol withdrawal, metabolic derangements) Critical Care Statement: The care of this patient involved high complexity decision making to prevent further life threatening deterioration of the patient's condition and/or to evaluate & treat vital organ system(s) failure or risk of failure. - Medical Decision Making 02/13/20 10:14 Vital Signs Temp Pulse Resp BP Pulse Ox 98.5 F 107 H 21 H 119/76 100 02/13/20 09:02 02/13/20 10:01 02/13/20 10:01 02/13/20 10:01 02/13/20 10:01 Vital signs reviewed, he is very tachycardic, afebrile normotensive, no respiratory distress Patient appears in moderate acute alcohol withdrawal, will give Ativan for withdrawal symptoms No evidence of intoxication No other systemic findings etoh level 54, now in acute w/d Basic labs and lites, coags, admission is warranted, monitor technician 02/13/20 13:18 labs and lytes with no anemia, mild wbc ct 12K. +low K and Mag, will replete with IV mag and PO potassium trop elevation 0.1, likely demand ischemia in setting of moderate alcohol w/d syndrome ativan 4mg IV x1 - controlled sx and clinically improved. banana bag and hydration given RUQ sono: Negative for acute pathology, there is hepatomegaly and fatty infiltration, distended gallbladder with some sludge without findings to suggest acute cholecystitis admit to telemetry for acute alcohol w/d, electrolyte/derangements, dehydration and continued medical management. 02/13/20 14:57 Heart Score/ECG Review #1 ECG reviewed & interpreted by me at: 09:30 General ECG Interpretation: Sinus Rhythm 02/13/20 13:02 EKG sinus tachycardia at 118 bpm, no interval abnormalities, narrow QRS, ST and T wave segments and morphology normal. Nonspecific T wave abnormalities some limitations with artifact due to his tremors Discharge - Discharge Information Problems reviewed: Yes Clinical Impression/Diagnosis: Alcohol withdrawal, Elevated troponin, Hyperbilirubinemia, Alcoholic hepatitis, Hypokalemia, Hypomagnesemia Condition: Guarded - Admission Yes - Follow up/Referral - Patient Discharge Instructions - Post Discharge Activity
[2020-02-13 10:24] LABS: INR 1.28 (0.83-1.09); PROTHROMBIN TIME (PATIENT) 15.1 SEC (9.7-13.0)
[2020-02-13 10:26] LABS: ACTIVATED PTT 38.5 SECONDS (25.2-36.5)
[2020-02-13 10:40] LABS: ALBUMIN 3.7 g/dl (3.4-5.0); ALK PHOS 384 U/L (45-117); BILIRUBIN,TOTAL 10.6 mg/dL (0.2-1); CALCIUM 8.8 mg/dL (8.5-10.1); CHLORIDE 73 mmol/L (98-107); CO2 26 mmol/L (21-32); CREATININE 1.7 mg/dL (0.55-1.3); GLUCOSE,RANDOM 162 mg/dL (74-106); SGOT/AST 338 U/L (15-37); SGPT/ALT 74 U/L (13-61); SODIUM 122 mmol/L (136-145); TOT PROT 8.4 g/dl (6.4-8.2)
[2020-02-13 10:57] LABS: ANION GAP 23 MMOL/L (8-16); BLOOD UREA NITROGEN 21.4 mg/dL (7-18)
[2020-02-13 10:58] LABS: POTASSIUM 2.6 mmol/L (3.5-5.1)
[2020-02-13] MEDS ORDERED: POTASSIUM CHLORIDE TABS 20 MEQ TABLET.ER (FP) PO ONE ×2 (11:45→11:57)
--- NOTE | 2020-02-13 11:51 | EKG ---
Test Reason : Blood Pressure : / mmHG Vent. Rate : 118 BPM Atrial Rate : 118 BPM P-R Int : 130 ms QRS Dur : 082 ms QT Int : 354 ms P-R-T Axes : 048 -02 049 degrees QTc Int : 496 ms POOR DATA QUALITY, INTERPRETATION MAY BE ADVERSELY AFFECTED SINUS TACHYCARDIA POSSIBLE LEFT ATRIAL ENLARGEMENT CANNOT RULE OUT INFERIOR INFARCT , AGE UNDETERMINED ABNORMAL ECG WHEN COMPARED WITH ECG OF 28-SEP-2016 13:46, NON-SPECIFIC CHANGE IN ST SEGMENT IN ANTERIOR LEADS Confirmed by ARIANE QUIROZ MD ([id number]) on 02/13/2020 11:50:36 AM Referred By: Confirmed By:ARIANE QUIROZ MD
[2020-02-13] MEDS ORDERED: MAG HYDROX/AL HYDROX/SIMETH 30 ML UNIT-DOSE CUP PO ONE (12:27)
[2020-02-13] MEDS ORDERED: FAMOTIDINE 20 MG/50 ML IVPB 20 MG/50 ML MG IVPB ONE ×2 (12:27→12:39)
[2020-02-13 12:35] LABS: MAGNESIUM 1.5 mg/dL (1.8-2.4)
[2020-02-13] MEDS ORDERED: MAGNESIUM SULF 50% (8.12 MEQ/2 ML-1 GM VIAL) IVPB ONE (12:37)
[2020-02-13] MEDS ORDERED: MAGNESIUM 1GM/D5W - 2 GM/200 ML IVPB IVPB ONE (12:39)
[2020-02-13] MEDS ORDERED: MAG HYDROX/AL HYDROX/SIMETH 30 ML UNIT-DOSE CUP ONE (12:39)
[2020-02-13] MEDS ORDERED: MAGNESIUM SULF 50% (8.12 MEQ/2 ML-1 GM VIAL) ONE (12:40)
[2020-02-13 13:46] LABS: PH,URINE 6.5 (5.0-8.0); URINE APPEARANCE CLEAR; URINE BILIRUBIN 1+ (NEGATIVE); URINE COLOR DK YELLOW; URINE GLUCOSE (UA) NEGATIVE (NEGATIVE); URINE KETONE NEGATIVE (NEGATIVE); URINE LEUK ESTERASE NEGATIVE (NEGATIVE); URINE NITRITE NEGATIVE (NEGATIVE); URINE PROTEIN NEGATIVE (NEGATIVE); URINE UROBILINOGEN >=8.0 E.U./dl mg/dL (0.2-1.0)
--- NOTE | 2020-02-13 14:30 | PN ---
Teaching Attending Note Name of Resident: Angella Vital ATTENDING PHYSICIAN STATEMENT I saw and evaluated the patient. I reviewed the resident's note and discussed the case with the resident. I agree with the resident's findings and plan as documented. SUBJECTIVE: 34 year old male with known history of alcohol abuse for many years, hyperte nsion, hyperlipidemia, gastritis who was brought to the ED by his boss after he exhibited severe shaking episode while at work. Apparently he was driving when he was witnessed to have developed unstoppable violent shaking. His last drink was about 4 days ago. Patient admitted to chest pain at the same time. Patient's shaking stopped after he received medicine upon arrival to the ED. OBJECTIVE: Gen 34 year old male who appears older than stated age and not in acute distress HEENT: Icteric sclerae, EOMI, no oral lesions neck; supple, no JVD elevation Chest: clear breath sounds CVS: RRR, no murmurs abd: soft tender at the right upper quadrant; liver edge palpable Ext; no edema, feet are warm and dry sports clerk: equivocal flapping tremor of the lower extremities. Awake and oriented, answers questions appropriately ASSESSMENT AND PLAN: 1. Alcohol withdrawal 2. Dehydration 3. Alcoholic hepatitis 4. hypokalemia 5. Hypomagnesemia 6. Hypovolemic hyponatremia 7. Troponinemia - fluid hydration - MVI, thiamine, folic acid - librium per protocol - ativan prn - replete electrolytes - serial troponins - echo - cardiac monitoring - PPI - Dr Laura Management discussed with Dr. Vital and agree with her management.
--- NOTE | 2020-02-13 15:17 | HP ---
CHIEF COMPLAINT: tremors PCP: HISTORY OF PRESENT ILLNESS: 34 yo M PMH of alcohol abuse and HTN presents to ED for tremors. pt states that his last drink was approx 2 days ago. he states that last night he was feeling tired after work and went to sleep without driking alcohol and this morning he went to work, where his boss saw his tremors and brought him to the ED. he states that he has 1/2 may daily. his last sobriety was 1 year ago for 1 month. he states that for the past day he has been nauseas and vomited. he also endorses diarrhea. he endorses RUQ and epigastric pain. His at bedside states that she noticed the yellowing of his eyes over the past 2 months. he is not compliant with his BP medications. ER course was notable for: (1) U/s: hepatomegaly w/ fatty infiltration vs hepatocellular dx. distended gallbladder w/ sludge no sign of acute cholecystitis (2)Banana bag, ativan 4 mg,librium 50 mg, Kdur 40, MgSo4, Allergies No Known Allergies Allergy (Verified 02/13/20 10:00) HOME MEDICATIONS: Home Medications Medication Instructions Recorded NK [No Known Home Medication] 02/13/20 REVIEW OF SYSTEMS CONSTITUTIONAL: Absent: fever, chills, diaphoresis, generalized weakness, malaise, loss of appetite, weight change HEENT: Absent: rhinorrhea, nasal congestion, throat pain, throat swelling, difficulty swallowing, mouth swelling, ear pain, eye pain, visual changes CARDIOVASCULAR: Absent: chest pain, syncope, palpitations, irregular heart rate, lightheadedness, peripheral edema RESPIRATORY: Absent: cough, shortness of breath, dyspnea with exertion, orthopnea, wheezing, stridor, hemoptysis GASTROINTESTINAL: Absent: abdominal pain, abdominal distension, nausea, vomiting, diarrhea, constipation, melena, hematochezia GENITOURINARY: Absent: dysuria, frequency, urgency, hesitancy, hematuria, flank pain, genital pain MUSCULOSKELETAL: Absent: myalgia, arthralgia, joint swelling, back pain, neck pain SKIN: Absent: rash, itching, pallor HEMATOLOGIC/IMMUNOLOGIC: Absent: easy bleeding, easy bruising, lymphadenopathy, frequent infections ENDOCRINE: Absent: unexplained weight gain, unexplained weight loss, heat intolerance, cold intolerance NEUROLOGIC: Absent: headache, focal weakness or paresthesias, dizziness, unsteady gait, seizure, mental status changes, bladder or bowel incontinence PSYCHIATRIC: Absent: anxiety, depression, suicidal or homicidal ideation, hallucinations. PHYSICAL EXAMINATION Vital Signs - 24 hr 02/13/20 02/13/20 11:41 12:53 Temperature Pulse Rate Pulse Rate [ 101 H 102 H Apical] Respiratory 21 H 17 Rate Blood Pressure Blood Pressure 106/57 L 123/80 [Right Arm] O2 Sat by Pulse 98 94 L Oximetry (%) GENERAL: Awake, alert, and fully oriented, in no acute distress. diaphoretic and tremulous. HEAD: Normal with no signs of trauma. EYES:scleral icterus EARS, NOSE, THROAT: dry mucous membranes. LUNGS: Breath sounds equal, clear to auscultation bilaterally. No accessory muscle use. HEART: Regular rate and rhythm, normal S1 and S2 ABDOMEN: TTP at RUQ and epigastric. not distended, normoactive bowel sounds, no guarding, no rebound, +hepatomegaly MUSCULOSKELETAL: Normal range of motion at all joints. No bony deformities or tenderness. No CVA tenderness. UPPER EXTREMITIES: 2+ pulses, warm, well-perfused. No cyanosis. No clubbing. No peripheral edema. LOWER EXTREMITIES: 2+ pulses, warm, well-perfused. No calf tenderness. No peripheral edema. NEUROLOGICAL: Cranial nerves II-XII intact. Normal speech. PSYCHIATRIC: Cooperative. Good eye contact. CIWA 22 Laboratory Last Values WBC 12.0 K/mm3 (4.0-10.0) H 02/13/20 09:30 RBC 4.10 M/mm3 (4.00-5.60) 02/13/20 09:30 Hgb 14.7 GM/dL (11.7-16.9) 02/13/20 09:30 Hct 41.5 % (35.4-49) D 02/13/20 09:30 MCV 101.2 fl (80-96) H 02/13/20 09:30 MCH 35.9 pg (25.7-33.7) H D 02/13/20 09:30 MCHC 35.5 g/dl (32.0-35.9) 02/13/20 09:30 RDW 12.7 % (11.9-15.9) 02/13/20 09:30 Plt Count 208 K/MM3 (134-434) 02/13/20 09:30 MPV 9.8 fl (7.5-11.1) D 02/13/20 09:30 Absolute Neuts (auto) 9.1 K/mm3 (1.5-8.0) H 02/13/20 09:30 Neutrophils % 76.2 % (42.8-82.8) 02/13/20 09:30 Lymphocytes % 12.4 % (8-40) D 02/13/20 09:30 Monocytes % 10.9 % (3.8-10.2) H 02/13/20 09:30 Eosinophils % 0.2 % (0-4.5) D 02/13/20 09:30 Basophils % 0.3 % (0-2.0) 02/13/20 09:30 Nucleated RBC % 0 % (0-0) 02/13/20 09:30 PT with INR 15.10 SEC (9.7-13.0) H 02/13/20 09:30 INR 1.28 (0.83-1.09) H 02/13/20 09:30 PTT (Actin FS) 38.5 SECONDS (25.2-36.5) H 02/13/20 09:30 Sodium 122 mmol/L (136-145) L 02/13/20 09:30 Potassium 2.6 mmol/L (3.5-5.1) L* 02/13/20 09:30 Chloride 73 mmol/L (98-107) L 02/13/20 09:30 Carbon Dioxide 26 mmol/L (21-32) 02/13/20 09:30 Anion Gap 23 MMOL/L (8-16) H 02/13/20 09:30 BUN 21.4 mg/dL (7-18) H 02/13/20 09:30 Creatinine 1.7 mg/dL (0.55-1.3) H 02/13/20 09:30 Est GFR (CKD-EPI)AfAm 59.65 02/13/20 09:30 Est GFR (CKD-EPI)NonAf 51.47 02/13/20 09:30 POC Glucometer 136 UNITS (80-120) 02/13/20 10:08 Random Glucose 162 mg/dL (74-106) H 02/13/20 09:30 Hemoglobin A1c % 5.1 % (4.2-6.3) 02/13/20 09:30 Calcium 8.8 mg/dL (8.5-10.1) 02/13/20 09:30 Magnesium 1.5 mg/dL (1.8-2.4) L 02/13/20 09:30 Total Bilirubin 10.6 mg/dL (0.2-1) H 02/13/20 09:30 AST 338 U/L (15-37) H 02/13/20 09:30 ALT 74 U/L (13-61) H 02/13/20 09:30 Alkaline Phosphatase 384 U/L (45-117) H 02/13/20 09:30 Creatine Kinase 197 U/L (26-308) 02/13/20 09:30 Creatine Kinase Index No Result Required. 02/13/20 09:30 CK-MB (CK-2) < 1.0 ng/mL (0.5-3.6) 02/13/20 09:30 Troponin I 0.16 ng/ml (0.00-0.05) H 02/13/20 09:30 Total Protein 8.4 g/dl (6.4-8.2) H 02/13/20 09:30 Albumin 3.7 g/dl (3.4-5.0) 02/13/20 09:30 Lipase 353 U/L (73-393) 02/13/20 09:30 Beta-Hydroxybutyrate 7.3 mg/dL (0.2-2.8) H 02/13/20 09:30 Urine Color Dk yellow 02/13/20 12:57 Urine Appearance Clear 02/13/20 12:57 Urine pH 6.5 (5.0-8.0) 02/13/20 12:57 Ur Specific Kinder 1.005 (1.010-1.035) L 02/13/20 12:57 Urine Protein Negative (NEGATIVE) 02/13/20 12:57 Urine Glucose (UA) Negative (NEGATIVE) 02/13/20 12:57 Urine Ketones Negative (NEGATIVE) 02/13/20 12:57 Urine Blood Negative (NEGATIVE) 02/13/20 12:57 Urine Nitrite Negative (NEGATIVE) 02/13/20 12:57 Urine Bilirubin 1+ (NEGATIVE) H 02/13/20 12:57 Urine Urobilinogen >=8.0 e.u./dl mg/dL (0.2-1.0) 02/13/20 12:57 Ur Leukocyte Esterase Negative (NEGATIVE) 02/13/20 12:57 Ur Random Creatinine 34.0 mg/dL (30-150) 02/13/20 12:57 Ur Random Sodium < 18 MMOL/L (40-220) L 02/13/20 12:57 Stool Occult Blood Negative (NEGATIVE) 02/13/20 15:00 Alcohol, Quantitative 54.5 mg/dL (0.0-5.0) H 02/13/20 09:40 ASSESSMENT/PLAN: 34 yo M PMH of alcohol abuse and HTN presents to ED for tremors. Pt is admitted for acute alcohol withdrawal and alcoholic hepatitis Acute alcohol withdrawal - CIWA 27 by ED , my eval was 22 - Ativan protocol started - Addiction medicine consulted - c/w IVF, thiamine, MV - monitor for signs of withdrawal/ DTs Elevated LFTs likely 2/2 alcohol hepatitis - U/S reviewed: - cont to trend LFTs and avoid hepatotoxic agents -GI consulted Epigastric pain likely GERD - c/w protonix 40 daily - FOBT negative - GI consulted NORI vs CKD - Cr 1.7, cont to trend - c/w IVF - renal U/s - Ulytes - renal consulted Tropinemia likely 2/2 demand - 0.16--> 0.10 - EKG shows no signs of ST changes. f/u rpt EKG - cont tele monitoring - will get A1C and lipid panel Hypokalemia - Kdur 40 given by ED - 4 rounds of Brayan , f/u BMP following - cont tele monitoring Hyponatremia -f/u rpt BMP - renal consulted Admit to tele ATTENDING PHYSICIAN STATEMENT I saw and evaluated the patient. I reviewed the resident's note and discussed the case with the resident. I agree with the resident's findings and plan as documented. SUBJECTIVE: OBJECTIVE: ASSESSMENT AND PLAN:
--- NOTE | 2020-02-13 15:23 | CONSULT ---
Consult Detox [facility] Reason for Current Admission/Consult: Alcohol use disorder Referred by:: Angella Vital - History History of Present Illness: 34 year old male with history of alcohol dependence. He had a period of abstinence but relapsed in 2019. He was last at [facility] in 2016 when he completed a detox and rehab. Recently in 12/2019 and now he's had gastrointestinal complaints and seen in ER. He is being admitted now for alcoholic hepatitis with elevated LFT's. PMH: HTN, GERD He is known to [facility] and did do well in a prior detox and rehab. - History Source History Provided By: Medical Record, Transfer Record Limitations to Obtaining History: No Limitations - Alcohol/Substance Use Hx Alcohol Use: Yes (1/2 pint hard liquor) Hx Substance Use: No Hx Substance Use Treatment: No - Current Drug/Alcohol Use Alcohol Route: Oral Frequency: Daily Amount used: 1/2 pint hard liquor Age of first use: 23 Date of Last Use: 02/13/20 - Past Medical History Cardio/Vascular: Yes: HTN, Hyperlipdemia Gastrointestinal: Yes: Gastritis CIWA Score - CIWA Score Nausea/Vomitin-Mild Nausea/No Vomiting Muscle Tremors: 4-Moderate,w/Arms Extend Anxiety: 3 Agitation: 4-Moderately Restless Paroxysmal Sweats: 3 Orientation: 0-Oriented Tacttile Disturbances: 0-None Auditory Disturbances: 0-None Visual Disturbances: 0-None Headache: 0-None Present CIWA-Ar Total Score: 15 Assessment Plan - Diagnosis (1) Alcoholic hepatitis Status: Acute (2) Alcohol dependence with uncomplicated withdrawal Status: Acute (3) GERD (gastroesophageal reflux disease) Status: Acute (4) Hypertension Status: Acute (5) Nicotine dependence unspecified, with withdrawal Status: Acute - Plan Plan: 1. Alcohol dependence with withdrawal: As suggested with consult and spoken to resident, patient may start Ativan Detox protocol while at [facility]. Once he is medically stable, he can complete detox at [facility] if he wishes. If he completes detox at [facility], he can go to rehab upon discharge if he wishes. 2. Alcoholic Hepatitis: Emphasis abstinence as it is definitely secondary to his alcohol use disorder. Hydration and supportive treatment as per protocol. Dr. Laura - Medication Detox Regimen/Protocol: Ativan
[2020-02-13] MEDS ORDERED: PANTOPRAZOLE 40 MG TABLET PO ONE (15:43)
[2020-02-13] MEDS ORDERED: LORazepam 0.5 MG TABLET ONE (16:20)
[2020-02-13] MEDS ORDERED: PANTOPRAZOLE 40 MG TABLET ONE (16:20)
[2020-02-13] MEDS ORDERED: KCL 10 MEQ IVPB 10 MEQ/100 ML INFUS.BAG IVPB ONE ×3 (16:20→18:28)
[2020-02-13] MEDS: KCL 10 MEQ IVPB 10 MEQ/100 ML INFUS.BAG IVPB SCH ×4 (16:21→20:38)
[2020-02-13] MEDS: LORazepam 1 MG TABLET PO SCH ×2 (16:21→23:01)
--- NOTE | 2020-02-13 16:37 | HP ---
CHIEF COMPLAINT: PCP: HISTORY OF PRESENT ILLNESS: ER course was notable for: (1) Alcohol intoxication + tox (2) Elevated trops .16 (3) depleted electrolytes Recent Travel: PAST MEDICAL HISTORY: HTN but not on medication for at least a year Previous detox at [facility] last february then rehab PAST SURGICAL HISTORY: Lap Appy Social History: Smoking:denies Alcohol:drinks 1/2- 1 bottle of may daily for a year Drugs: denies Allergies No Known Allergies Allergy (Verified 02/13/20 10:00) HOME MEDICATIONS: Home Medications Medication Instructions Recorded NK [No Known Home Medication] 02/13/20 REVIEW OF SYSTEMS CONSTITUTIONAL:Positive for: chills, sweating, weakness, tremors Absent: fever, malaise, loss of appetite, weight change HEENT: Absent: rhinorrhea, nasal congestion, throat pain, throat swelling, difficulty swallowing, mouth swelling, ear pain, eye pain, visual changes CARDIOVASCULAR: positive for palpatations Absent: chest pain, syncope, palpitations, lightheadedness, peripheral edema RESPIRATORY: Absent: cough, shortness of breath, dyspnea with exertion, orthopnea, wheezing, stridor, hemoptysis GASTROINTESTINAL: Positive for nausea and vomiting, Absent: diarrhea, constipation, melena, hematochezia GENITOURINARY: Absent: dysuria, frequency, urgency, hesitancy, hematuria, flank pain, genital pain MUSCULOSKELETAL: Positive for body aches and sweating Absent: arthralgia, joint swelling, back pain, neck pain SKIN: Absent: rash, itching, pallor HEMATOLOGIC/IMMUNOLOGIC: Absent: easy bleeding, easy bruising, lymphadenopathy, frequent infections ENDOCRINE: Absent: unexplained weight gain, unexplained weight loss, heat intolerance, cold intolerance NEUROLOGIC: unsteady gait, Absent: headache, focal weakness or paresthesias, dizziness, seizure, mental status changes, bladder or bowel incontinence PSYCHIATRIC: Positive for anxiety Absent:depression, suicidal or homicidal ideation, hallucinations. PHYSICAL EXAMINATION Vital Signs - 24 hr 02/13/20 02/13/20 02/13/20 09:02 10:01 10:23 Temperature 98.5 F Pulse Rate 151 H Pulse Rate [ 107 H Apical] Respiratory 17 21 H Rate Blood Pressure 129/86 Blood Pressure 119/76 [Right Arm] O2 Sat by Pulse 100 100 100 Oximetry (%) 02/13/20 02/13/20 11:41 12:53 Temperature Pulse Rate Pulse Rate [ 101 H 102 H Apical] Respiratory 21 H 17 Rate Blood Pressure Blood Pressure 106/57 L 123/80 [Right Arm] O2 Sat by Pulse 98 94 L Oximetry (%) GENERAL: Awake, alert, and fully oriented, HEAD: Normal with no signs of trauma. EYES: Pupils equal, round and reactive to light, extraocular movements intact, sclera anicteric, conjunctiva clear. No lid lag. EARS, NOSE, THROAT: Ears normal, nares patent, oropharynx clear without exudates. Moist mucous membranes. NECK: Normal range of motion, supple without lymphadenopathy, JVD, or masses. LUNGS: Breath sounds equal, clear to auscultation bilaterally. No wheezes, and no crackles.. HEART: tachycardic with regular rhythm, normal S1 and S2 without murmur, rub or gallop. ABDOMEN: non tender, distended hepatomegaly palpated but no splenomegaly appreciated. RECTAL: sphincter tone intact, no gross blood observed MUSCULOSKELETAL: visible tremors UPPER EXTREMITIES: warm, well-perfused. No peripheral edema, 5/5 strength LOWER EXTREMITIES: warm, well-perfused. No peripheral edema. 5/5 strength NEUROLOGICAL: Speech trembling, anxiety, PSYCHIATRIC: Cooperative. Good eye contact. anxious, CIWAA 20 SKIN: Warm, dry, normal turgor, no rashes, scratches noted on left jane, patient said from his [employer] Laboratory Results - last 24 hr 02/13/20 02/13/20 02/13/20 09:30 09:30 09:30 WBC 12.0 H RBC 4.10 Hgb 14.7 Hct 41.5 D MCV 101.2 H MCH 35.9 H D MCHC 35.5 RDW 12.7 Plt Count 208 MPV 9.8 D Absolute Neuts (auto) 9.1 H Neutrophils % 76.2 Lymphocytes % 12.4 D Monocytes % 10.9 H Eosinophils % 0.2 D Basophils % 0.3 Nucleated RBC % 0 PT with INR 15.10 H INR 1.28 H PTT (Actin FS) 38.5 H Sodium Potassium Chloride Carbon Dioxide Anion Gap BUN Creatinine Est GFR (CKD-EPI)AfAm Est GFR (CKD-EPI)NonAf POC Glucometer Random Glucose Calcium Magnesium Total Bilirubin AST ALT Alkaline Phosphatase Creatine Kinase Creatine Kinase Index CK-MB (CK-2) Troponin I Total Protein Albumin Beta-Hydroxybutyrate 7.3 H Urine Color Urine Appearance Urine pH Ur Specific Ranson Urine Protein Urine Glucose (UA) Urine Ketones Urine Blood Urine Nitrite Urine Bilirubin Urine Urobilinogen Ur Leukocyte Esterase Ur Random Creatinine Ur Random Sodium Stool Occult Blood Alcohol, Quantitative 02/13/20 02/13/20 02/13/20 09:30 09:40 10:08 WBC RBC Hgb Hct MCV MCH MCHC RDW Plt Count MPV Absolute Neuts (auto) Neutrophils % Lymphocytes % Monocytes % Eosinophils % Basophils % Nucleated RBC % PT with INR INR PTT (Actin FS) Sodium 122 L Potassium 2.6 L* Chloride 73 L Carbon Dioxide 26 Anion Gap 23 H BUN 21.4 H Creatinine 1.7 H Est GFR (CKD-EPI)AfAm 59.65 Est GFR (CKD-EPI)NonAf 51.47 POC Glucometer 136 Random Glucose 162 H Calcium 8.8 Magnesium 1.5 L Total Bilirubin 10.6 H AST 338 H ALT 74 H Alkaline Phosphatase 384 H Creatine Kinase 197 Creatine Kinase Index No Result Required. CK-MB (CK-2) < 1.0 Troponin I 0.16 H Total Protein 8.4 H Albumin 3.7 Beta-Hydroxybutyrate Urine Color Urine Appearance Urine pH Ur Specific Ranson Urine Protein Urine Glucose (UA) Urine Ketones Urine Blood Urine Nitrite Urine Bilirubin Urine Urobilinogen Ur Leukocyte Esterase Ur Random Creatinine Ur Random Sodium Stool Occult Blood Alcohol, Quantitative 54.5 H 02/13/20 02/13/20 02/13/20 12:57 12:57 15:00 WBC RBC Hgb Hct MCV MCH MCHC RDW Plt Count MPV Absolute Neuts (auto) Neutrophils % Lymphocytes % Monocytes % Eosinophils % Basophils % Nucleated RBC % PT with INR INR PTT (Actin FS) Sodium Potassium Chloride Carbon Dioxide Anion Gap BUN Creatinine Est GFR (CKD-EPI)AfAm Est GFR (CKD-EPI)NonAf POC Glucometer Random Glucose Calcium Magnesium Total Bilirubin AST ALT Alkaline Phosphatase Creatine Kinase Creatine Kinase Index CK-MB (CK-2) Troponin I Total Protein Albumin Beta-Hydroxybutyrate Urine Color Dk yellow Urine Appearance Clear Urine pH 6.5 Ur Specific Ranson 1.005 L Urine Protein Negative Urine Glucose (UA) Negative Urine Ketones Negative Urine Blood Negative Urine Nitrite Negative Urine Bilirubin 1+ H Urine Urobilinogen >=8.0 e.u./dl Ur Leukocyte Esterase Negative Ur Random Creatinine 34.0 Ur Random Sodium < 18 L Stool Occult Blood Negative Alcohol, Quantitative RUQ sono: Negative for acute pathology, there is hepatomegaly and fatty infiltration, distended gallbladder with some sludge without findings to suggest acute cholecystitis EKG: sinus tachycardia at 118 bpm, no interval abnormalities, narrow QRS, ST and T wave segments and morphology normal. Nonspecific T wave abnormalities some limitations with artifact due to his tremors ASSESSMENT/PLAN: 34 yo male presented to the ED with moderate to severe tremors, diaphoresis, and tachycardia. Patient is in acute alcohol withdrawel with a CIWA score 20. Patient being admitted to tele for detox and monitoring for complications of withdrawal. Alcohol intoxication & Withdrawal - Ativan detox protocol in place - electrolytes being repleated, BMP to be checked again at 8:30 PM - will continue to give based on results - monitor on tele - protonix 40 PO Liver Cirrhosis & transaminitis - AST 338 ALT 74, total bili 10.6 - Consulted for Dr. Thien michel - lipase ordered - FOBT negative - Lipid panel - A1c Elevated Trops - most likely demand ischemia/ EKG sinus tachy - continue to monitor - next trop is at 5:30 PM, if still elevated will sign out to night team to repeat trop : Gurpreet Lopez Visit type - Emergency Visit Emergency Visit: Yes ED Registration Date: 02/13/20 Care time: The patient presented to the Emergency Department on the above date and was hospitalized for further evaluation of their emergent condition. - New Patient This patient is new to me today: Yes Date on this admission: 02/14/20 - Critical Care Critical Care patient: No ATTENDING PHYSICIAN STATEMENT I saw and evaluated the patient. I reviewed the resident's note and discussed the case with the resident. I agree with the resident's findings and plan as documented. SUBJECTIVE: OBJECTIVE: ASSESSMENT AND PLAN:
[2020-02-13 18:12] LABS: LIPASE 353 U/L (73-393)
[2020-02-13] MEDS: HEPARIN NA (PORCINE) 5,000 UNITS/ML 1ML VIAL SQ SCH (21:27)
[2020-02-13] MEDS: LORazepam 1 MG TABLET PO PRN (21:28)
[2020-02-13 21:54] LABS: HEMATOCRIT 36.5 % (35.4-49); HEMOGLOBIN 12.9 GM/dL (11.7-16.9); MCH 35.9 pg (25.7-33.7); MCHC 35.2 g/dl (32.0-35.9); MEAN CELL VOLUME 102.1 fl (80-96); MEAN PLT VOLUME 9.1 fl (7.5-11.1); PLATELET COUNT 149 K/MM3 (134-434); RBC 3.58 M/mm3 (4.00-5.60); RDW 12.7 % (11.9-15.9); WHITE BLOOD COUNT 9.1 K/mm3 (4.0-10.0)
[2020-02-13 22:20] LABS: MAGNESIUM 2.6 mg/dL (1.8-2.4); PHOSPHOROUS 1.7 mg/dL (2.5-4.9); POTASSIUM 3.7 mmol/L (3.5-5.1)
[2020-02-13 22:25] LABS: CHOLESTEROL 188 mg/dL (50-200); HDL CHOLESTEROL 14 mg/dL (40-60); LDL CHOLESTEROL (ONLY SJRH) 130 mg/dL (5-100); TRIGLYCERIDES 251 mg/dL (0-150)
[2020-02-14] MEDS: LORazepam 1 MG TABLET PO PRN (02:16)
[2020-02-14] MEDS ORDERED: LORazepam 0.5 MG TABLET PO ONE (02:36)
[2020-02-14] MEDS ORDERED: LORazepam 2 MG/ML SDV VIAL IVPUSH ONE ×3 (04:03→08:09)
[2020-02-14] MEDS ORDERED: LORazepam 2 MG/ML SDV VIAL ONE (04:41)
[2020-02-14] MEDS: LORazepam 1 MG TABLET PO SCH ×3 (05:05→17:15)
[2020-02-14 06:38] LABS: BASO % 0.6 % (0-2.0); EOS % 0.5 % (0-4.5); HEMATOCRIT 35.8 % (35.4-49); HEMOGLOBIN 12.4 GM/dL (11.7-16.9); MCH 35.2 pg (25.7-33.7); MCHC 34.6 g/dl (32.0-35.9); MEAN CELL VOLUME 101.8 fl (80-96); MEAN PLT VOLUME 9.1 fl (7.5-11.1); MONO % 10.7 % (3.8-10.2); NEUT % 75.2 % (42.8-82.8); PLATELET COUNT 169 K/MM3 (134-434); RBC 3.51 M/mm3 (4.00-5.60); RDW 12.8 % (11.9-15.9); WHITE BLOOD COUNT 9.3 K/mm3 (4.0-10.0)
[2020-02-14] MEDS: HEPARIN NA (PORCINE) 5,000 UNITS/ML 1ML VIAL SQ SCH ×3 (06:49→23:04)
[2020-02-14 07:12] LABS: ALBUMIN 3.2 g/dl (3.4-5.0); CALCIUM 8.5 mg/dL (8.5-10.1); CREATININE 0.8 mg/dL (0.55-1.3); MAGNESIUM 2.4 mg/dL (1.8-2.4); PHOSPHOROUS 1.4 mg/dL (2.5-4.9); POTASSIUM 3.1 mmol/L (3.5-5.1)
[2020-02-14 07:18] LABS: BILIRUBIN,TOTAL 7.9 mg/dL (0.2-1)
[2020-02-14] MEDS ORDERED: POTASSIUM PHOSPHATE 15 MM in SODIUM CHLORIDE 250 ML IVPB ONE (08:02)
[2020-02-14] MEDS ORDERED: THIAMINE HCL 200 MG/2 ML VIAL IVPB ONE (08:02)
[2020-02-14] MEDS ORDERED: PANTOPRAZOLE 40 MG TABLET PO SCH (10:00)
[2020-02-14] MEDS ORDERED: KCL 10 MEQ IVPB 10 MEQ/100 ML INFUS.BAG IVPB SCH (10:30)
[2020-02-14 12:13] LABS: INR 1.17 (0.83-1.09); PROTHROMBIN TIME (PATIENT) 13.8 SEC (9.7-13.0)
[2020-02-14 12:16] LABS: ACTIVATED PTT 38.6 SECONDS (25.2-36.5)
--- NOTE | 2020-02-14 13:41 | EKG ---
Test Reason : Blood Pressure : / mmHG Vent. Rate : 101 BPM Atrial Rate : 101 BPM P-R Int : 142 ms QRS Dur : 086 ms QT Int : 370 ms P-R-T Axes : 041 011 013 degrees QTc Int : 479 ms POOR DATA QUALITY, INTERPRETATION MAY BE ADVERSELY AFFECTED SINUS TACHYCARDIA ABNORMAL ECG WHEN COMPARED WITH ECG OF 13-FEB-2020 09:26, NONSPECIFIC T WAVE ABNORMALITY NOW EVIDENT IN INFERIOR LEADS NONSPECIFIC T WAVE ABNORMALITY, WORSE IN ANTERIOR LEADS Confirmed by TOM AIKEN MD ([id number]) on 02/14/2020 1:41:28 PM Referred By: Confirmed By:TOM AIKEN MD
--- NOTE | 2020-02-14 13:50 | PN ---
Teaching Attending Note Name of Resident: Iona Granados ATTENDING PHYSICIAN STATEMENT I saw and evaluated the patient. I reviewed the resident's note and discussed the case with the resident. I agree with the resident's findings and plan as documented. SUBJECTIVE: seen around 10:30 am Unable to obtain hx. confused. events over night noted for agitation, hallucinations, and frequent ativan pushes. per redsident this am , he complained of bugs crawling on his skin. OBJECTIVE: NAD , awake , alert, not cooperative icteric sclera dry MM. CV: Regular rhythm, tachycardic. Lungs: CATB Ext : No edema or erythema on upper or lower extremities. ABd:soft, NT, ND, liver is felt about 1 cm at mid clavicular line . ASSESSMENT AND PLAN: 34 y/o man with h/o ETOH abuse, gastritis, and HLP, who has been trying to cut down on ETOH use, and presented with signs and symptoms of ETOH withdrawal 1- Delirium Tremens: hallucination,tachycardia, agitation, confusion . - received 16.5 mg of IV ativan since 9 pm las tonight . - will place on Ativan gtt and transfer to ICU - give 1 dose of thiamine IV - start IVF - replete elctrolytes. give K phos and repeat this afternoon - check B12, folic acid due to macrocytosis 2- Alcoholic hepatitis : US with no dilation in CBD , no evidence of cholecystitis. - MAdry's DF : 16. No need for steroids treatment - monitor LFTS - avoid liver toxic meds 3- h/o HLP: no stains given liver function 4- DVT PX : heparin SQ Tx to ICU . d/w Dr. Mann . Critical Care Total Critical Care Time (in minutes): 40 Critical Care Statement: The care of this patient involved high complexity decision making to prevent further life threatening deterioration of the patient's condition and/or to evaluate & treat vital organ system(s) failure or risk of failure.
[2020-02-14] MEDS ORDERED: SODIUM CHLORIDE 1,000 ML IV SCH ×2 (14:00→23:15)
--- NOTE | 2020-02-14 14:01 | HOSP ---
Subjective - Review of Symptoms Events since last encounter: Patient examined this morning. Currently in restraints. Keeps trying to bite off his restraints and scratch his arms. Patient not responding well to ativan pro tocol. Needs intensive care. General: Yes: Chills, Night Sweats HEENT: Yes: Head Aches Cardiovascular: Yes: Palpitations Gastrointestinal: Yes: Nausea Neurological: Yes: Weakness, Confusion Other Systems: tactile and visual hallucinations, agitation Physical Examination Vital Signs: Vital Signs Temperature 98.3 F 02/14/20 12:00 Pulse Rate 114 H 02/14/20 12:00 Respiratory Rate 18 02/14/20 12:00 Blood Pressure 117/48 L 02/14/20 12:00 O2 Sat by Pulse Oximetry (%) 96 02/14/20 11:57 Constitutional: Yes: Anxious, Diaphoresis. No: Calm Eyes: Yes: Sclera Icterus HENT: Yes: WNL, Atraumatic, Normocephalic Neck: Yes: WNL Cardiovascular: Yes: Tachycardia Respiratory: Yes: CTA Bilaterally Gastrointestinal: Yes: WNL, Soft ...Rectal Exam: Yes: Sphincter Tone Normal Renal/: Yes: WNL Extremities: Yes: Other (tremors) Edema: No Labs: CBC, BMP 02/14/20 05:40 02/14/20 05:40 Hospitalist Encounter Assessment: Severe alcohol withdrawal not responding to ativan protocol, CIWA continues to be >20 and patient is experiences DTs Needs ativan drip and monitoring for any respiratory depression Alcoholic Cirrhosis Current ABIC score 5.21 - low risk Maddrey's Discriminate score 16.2 - good prognosis Primary Physician Notified: Yary Badillo Recommendations/Interventions: ICU Admission Visit type - Emergency Visit Emergency Visit: Yes ED Registration Date: 02/13/20 Care time: The patient presented to the Emergency Department on the above date and was hospitalized for further evaluation of their emergent condition. - New Patient This patient is new to me today: No - Critical Care Critical Care patient: Yes Total Critical Care Time (in minutes): 40 Critical Care Statement: The care of this patient involved high complexity decision making to prevent further life threatening deterioration of the patient's condition and/or to evaluate & treat vital organ system(s) failure or risk of failure.
--- NOTE | 2020-02-14 15:08 | CONSULT ---
Consultation: REQUESTING PROVIDER: doctor foster CONSULT REQUEST: We have been asked to medically evaluate this patient for alcohol withdrawal, agitation. HISTORY OF PRESENT ILLNESS: Patient is 34yo M with Hx of alcohol abuse disorder, gastritis, HLD presented yesterday with complaint of tremors. Per chart review, patient usually drinks 1/2 bottle of may every day but has been drinking more over the weekend. His last drink was reportedly 5 days ago. Overnight, he was combative, was put in restraints and given ativan 19mg total (PO and IV). Patient endorses numbness in fingers and toes, occasional chills but denies headaches, fever, cough, nausea, diarrhea. PMHx HTN HLD gastritis Alcohol use disorder PSurgHx appendectomy approx 10 years ago FamHx unremarkable SocialHx Denied tobacco use Endorsed heavy alcohol use - about 1/2 bottle may per day Denied recreational drugs Allergies NKDA REVIEW OF SYSTEMS: as noted above. otherwise unremarkable. PHYSICAL EXAMINATION Vital Signs - 24 hr 02/13/20 02/13/20 02/13/20 18:16 21:00 22:23 Temperature 98.0 F 97.6 F Pulse Rate 101 H Pulse Rate [ 102 H Apical] Respiratory 19 22 H 19 Rate Blood Pressure 140/80 Blood Pressure 105/68 [Right Arm] O2 Sat by Pulse 97 97 97 Oximetry (%) 02/14/20 02/14/20 02/14/20 01:34 01:44 02:00 Temperature 97.8 F 98.0 F Pulse Rate 101 H 121 H Pulse Rate [ Apical] Respiratory 19 22 H 20 Rate Blood Pressure 105/64 Blood Pressure [Right Arm] O2 Sat by Pulse 97 Oximetry (%) 02/14/20 02/14/20 02/14/20 07:00 08:09 09:00 Temperature 98.4 F Pulse Rate 113 H Pulse Rate [ Apical] Respiratory 20 20 20 Rate Blood Pressure 116/84 Blood Pressure [Right Arm] O2 Sat by Pulse 97 97 97 Oximetry (%) 02/14/20 02/14/20 11:57 12:00 Temperature 98.3 F Pulse Rate 114 H Pulse Rate [ Apical] Respiratory 18 Rate Blood Pressure 117/48 L Blood Pressure [Right Arm] O2 Sat by Pulse 96 Oximetry (%) GENERAL: Somnolent, arousable, disoriented, in no acute distress. HEAD: Normal with no signs of trauma. jaundiced skin EYES: Marked scleral icterus. Pupils equal, extraocular movements intact. No lid lag. EARS, NOSE, THROAT: Ears normal. NECK: Normal range of motion. LUNGS: Breath sounds equal, clear to auscultation bilaterally. No wheezes, and no crackles. No accessory muscle use. HEART: Tachycardic, normal S1 and S2 without murmur, rub or gallop. ABDOMEN: Soft, nontender, not distended, hypoactive bowel sounds, no guarding. Hepatomegaly present. No splenomegaly. Negative capute medusae UPPER EXTREMITIES: 2+ pulses, warm, well-perfused. No cyanosis. No clubbing. Cap refill <2 seconds. No peripheral edema. LOWER EXTREMITIES: 2+ pulses, warm, well-perfused. No calf tenderness. No peripheral edema. NEUROLOGICAL: property inspector 2-12 intact, moving all 4 extremities equally with no focal deficits. Mild asterixis noted SKIN: jaundice noted of the face and eyes. warm, no rashes or lesions noted. Laboratory Results - last 24 hr 02/13/20 02/13/20 02/13/20 09:30 09:30 14:20 WBC RBC Hgb Hct MCV MCH MCHC RDW Plt Count MPV Absolute Neuts (auto) Neutrophils % Lymphocytes % Monocytes % Eosinophils % Basophils % Nucleated RBC % PT with INR INR PTT (Actin FS) Sodium 122 L Potassium 2.6 L* Chloride 73 L Carbon Dioxide 26 Anion Gap 23 H BUN 21.4 H Creatinine 1.7 H Est GFR (CKD-EPI)AfAm 59.65 Est GFR (CKD-EPI)NonAf 51.47 Random Glucose 162 H Hemoglobin A1c % 5.1 Calcium 8.8 Phosphorus Magnesium 1.5 L Total Bilirubin 10.6 H AST 338 H ALT 74 H Alkaline Phosphatase 384 H Creatine Kinase 197 Creatine Kinase Index CK-MB (CK-2) < 1.0 Troponin I 0.16 H Total Protein 8.4 H Albumin 3.7 Triglycerides Cholesterol Total LDL Cholesterol HDL Cholesterol Lipase 353 TSH Stool Occult Blood COVID-19 (VAN) Not detected 02/13/20 02/13/20 02/13/20 15:00 18:00 21:35 WBC 9.1 RBC 3.58 L Hgb 12.9 Hct 36.5 MCV 102.1 H MCH 35.9 H MCHC 35.2 RDW 12.7 Plt Count 149 D MPV 9.1 Absolute Neuts (auto) Neutrophils % Lymphocytes % Monocytes % Eosinophils % Basophils % Nucleated RBC % PT with INR INR PTT (Actin FS) Sodium Potassium Chloride Carbon Dioxide Anion Gap BUN Creatinine Est GFR (CKD-EPI)AfAm Est GFR (CKD-EPI)NonAf Random Glucose Hemoglobin A1c % Calcium Phosphorus Magnesium Total Bilirubin AST ALT Alkaline Phosphatase Creatine Kinase 150 Creatine Kinase Index No Result Required. CK-MB (CK-2) < 1.0 Troponin I 0.10 H Total Protein Albumin Triglycerides Cholesterol Total LDL Cholesterol HDL Cholesterol Lipase TSH Stool Occult Blood Negative COVID-19 (VAN) 02/13/20 02/13/20 02/13/20 21:35 21:35 21:35 WBC RBC Hgb Hct MCV MCH MCHC RDW Plt Count MPV Absolute Neuts (auto) Neutrophils % Lymphocytes % Monocytes % Eosinophils % Basophils % Nucleated RBC % PT with INR INR PTT (Actin FS) Sodium 133 L Potassium 3.7 Chloride 94 L Carbon Dioxide 32 Anion Gap 8 BUN 14.0 Creatinine 1.0 Est GFR (CKD-EPI)AfAm 113.31 Est GFR (CKD-EPI)NonAf 97.76 Random Glucose 105 Hemoglobin A1c % Calcium 8.0 L Phosphorus 1.7 L Magnesium 2.6 H Total Bilirubin AST ALT Alkaline Phosphatase Creatine Kinase 159 Creatine Kinase Index No Result Required. CK-MB (CK-2) < 1.0 Troponin I Total Protein Albumin Triglycerides 251 H Cholesterol 188 Total LDL Cholesterol 130 H HDL Cholesterol 14 L Lipase TSH Stool Occult Blood COVID-19 (VAN) 02/14/20 02/14/20 02/14/20 05:40 05:40 05:40 WBC 9.3 RBC 3.51 L Hgb 12.4 Hct 35.8 MCV 101.8 H MCH 35.2 H MCHC 34.6 RDW 12.8 Plt Count 169 MPV 9.1 Absolute Neuts (auto) 7.0 Neutrophils % 75.2 Lymphocytes % 13.0 Monocytes % 10.7 H Eosinophils % 0.5 D Basophils % 0.6 Nucleated RBC % 0 PT with INR INR PTT (Actin FS) Sodium 132 L Potassium 3.1 L Chloride 95 L Carbon Dioxide 29 Anion Gap 8 BUN 13.0 Creatinine 0.8 Est GFR (CKD-EPI)AfAm 135.08 Est GFR (CKD-EPI)NonAf 116.55 Random Glucose 99 Hemoglobin A1c % 5.0 Calcium 8.5 Phosphorus 1.4 L Magnesium 2.4 Total Bilirubin 7.9 H D AST 230 H ALT 62 H Alkaline Phosphatase 283 H Creatine Kinase Creatine Kinase Index CK-MB (CK-2) Troponin I 0.03 Total Protein 7.0 Albumin 3.2 L Triglycerides Cholesterol Total LDL Cholesterol HDL Cholesterol Lipase TSH 1.64 Stool Occult Blood COVID-19 (VAN) 02/14/20 11:35 WBC RBC Hgb Hct MCV MCH MCHC RDW Plt Count MPV Absolute Neuts (auto) Neutrophils % Lymphocytes % Monocytes % Eosinophils % Basophils % Nucleated RBC % PT with INR 13.80 H INR 1.17 H PTT (Actin FS) 38.6 H Sodium Potassium Chloride Carbon Dioxide Anion Gap BUN Creatinine Est GFR (CKD-EPI)AfAm Est GFR (CKD-EPI)NonAf Random Glucose Hemoglobin A1c % Calcium Phosphorus Magnesium Total Bilirubin AST ALT Alkaline Phosphatase Creatine Kinase Creatine Kinase Index CK-MB (CK-2) Troponin I Total Protein Albumin Triglycerides Cholesterol Total LDL Cholesterol HDL Cholesterol Lipase TSH Stool Occult Blood COVID-19 (VAN) Active Medications Generic Name Dose Route Start Last Admin Trade Name Freq PRN Reason Stop Dose Admin Heparin Sodium (Porcine) 5,000 unit 02/13/20 22:00 02/14/20 14:26 Heparin - SQ 5,000 unit TID MONTY Administration Sodium Chloride 1,000 mls @ 100 mls/hr 02/14/20 14:00 02/14/20 14:58 Normal Saline - IV 100 mls/hr ASDIR MONTY Administration Lorazepam 1 mg 02/15/20 05:00 Ativan - PO 02/15/20 23:01 0500,1100,1700,2300 MONTY Lorazepam 1 mg 02/13/20 15:06 02/14/20 02:16 Ativan - PO 02/15/20 23:59 1 mg Q4H PRN Administration Symptoms of Withdrawal Lorazepam 2 mg 02/13/20 17:00 02/14/20 10:44 Ativan - PO 02/14/20 23:01 2 mg 0500,1100,1700,2300 MONTY Administration Lorazepam 0.5 mg 02/16/20 05:00 Ativan - PO 02/16/20 23:01 Q6H MONTY Lorazepam 0.5 mg 02/16/20 00:00 Ativan - PO 02/17/20 00:00 Q4H PRN Symptoms of Withdrawal Lorazepam 0.5 mg 02/17/20 05:00 02/14/20 03:00 Ativan - PO 02/17/20 05:01 0.5 mg ONCE ONE Administration Pantoprazole Sodium 40 mg 02/14/20 10:00 02/14/20 09:05 Protonix - PO 40 mg DAILY MONTY Administration ASSESSMENT/PLAN: 34 y/o M with hx of alcohol abuse and alcoholic liver cirrhosis presented with whole body shaking and is admitted for alcohol withdrawal. #neuro AMS - likely secondary to alcohol withdrawal, concern for hepatic encephalopathy - continue ativan IV. Will change to drip given his increased benzodiazepine requirements - CIWA score 4, however currently on ativan drip - thiamine, folic acid, multivitamin supplements - continue monitoring for seizures, delirium tremens. Fall precautions, aspiration precautions #cardio tachycardia secondary to withdrawal and dehydration - started IV fluids via banana bag, continue hydration with NS #pulm no active issues - keep patient sitting upright, head of bed 30 degrees to avoid aspiration #GI alcoholic cirrhosis, increased PT, INR. Albumin - AST 230, ALT 62, total bilirubin 7.9, direct bilirubin 5.9 - RUQ US reveals hepatomegaly and fatty infiltrates, no signs of stones or bile duct dilation - GI consult Dr. Gama rosario discriminant 20.8 - good prognosis and does not currently need steroids - holding home statin in setting of transaminitis #renal no active issues, continue IVF hydration monitor I/O #FEN hyponatremia - due to malnutrition secondary to alcoholism - fluids: banana bag, NS - NPO for now, given concern for aspiration - continue trending lytes Dispo: will continue to monitor patient in ICU, thank you for this consultive opportunity Visit type - Emergency Visit Emergency Visit: Yes ED Registration Date: 02/13/20 Care time: The patient presented to the Emergency Department on the above date and was hospitalized for further evaluation of their emergent condition. - New Patient This patient is new to me today: Yes Date on this admission: 02/14/20 - Critical Care Critical Care patient: Yes Total Critical Care Time (in minutes): 36 Critical Care Statement: The care of this patient involved high complexity decision making to prevent further life threatening deterioration of the patient's condition and/or to evaluate & treat vital organ system(s) failure or risk of failure. ATTENDING PHYSICIAN STATEMENT I saw and evaluated the patient. I reviewed the resident's note and discussed the case with the resident. I agree with the resident's findings and plan as documented. SUBJECTIVE: OBJECTIVE: ASSESSMENT AND PLAN:
[2020-02-14] MEDS ORDERED: PT OWN MED DRAWER 7, Y5N ONE (15:16)
[2020-02-14 16:32] LABS: BILIRUBIN,DIRECT 5.9 mg/dL (0.0-0.2)
--- NOTE | 2020-02-14 16:36 | PN ---
Physical Exam: SUBJECTIVE: Patient seen and examined in restraints, fidgeting , does not know where he is. Nurses said he started running around last night, ripped out his IV because he thought bugs were crawling on him. Despite given multiple doses of ativan the patient appears in distress. OBJECTIVE: Vital Signs Period Temp Pulse Resp BP Sys/Muniz Pulse Ox Last 24 Hr 97.6 F-98.4 F 101-121 18-22 105-140/48-84 96-97 GENERAL: The patient is awake, alert, not oriented to place, sweating, restrained and trembling HEAD: Normal with no signs of trauma. EYES:No nastagmus, sclera icterus present NECK: Trachea midline, full range of motion, supple. LUNGS: Breath sounds equal, clear to auscultation bilaterally HEART: tachy with regular rhythm ABDOMEN: Hepatomegaly appreciated, abdomen mildly distended EXTREMITIES: warm, well-perfused, no edema. PSYCH: trembling, signs of tactile and possibly auditory/visual hallucinations Laboratory Results - last 24 hr 02/13/20 02/13/20 02/13/20 09:30 09:30 14:20 WBC RBC Hgb Hct MCV MCH MCHC RDW Plt Count MPV Absolute Neuts (auto) Neutrophils % Lymphocytes % Monocytes % Eosinophils % Basophils % Nucleated RBC % PT with INR INR PTT (Actin FS) Sodium 122 L Potassium 2.6 L* Chloride 73 L Carbon Dioxide 26 Anion Gap 23 H BUN 21.4 H Creatinine 1.7 H Est GFR (CKD-EPI)AfAm 59.65 Est GFR (CKD-EPI)NonAf 51.47 Random Glucose 162 H Hemoglobin A1c % 5.1 Calcium 8.8 Phosphorus Magnesium 1.5 L Total Bilirubin 10.6 H AST 338 H ALT 74 H Alkaline Phosphatase 384 H Creatine Kinase 197 Creatine Kinase Index CK-MB (CK-2) < 1.0 Troponin I 0.16 H Total Protein 8.4 H Albumin 3.7 Triglycerides Cholesterol Total LDL Cholesterol HDL Cholesterol Lipase 353 TSH COVID-19 (VAN) Not detected 02/13/20 02/13/20 02/13/20 18:00 21:35 21:35 WBC 9.1 RBC 3.58 L Hgb 12.9 Hct 36.5 MCV 102.1 H MCH 35.9 H MCHC 35.2 RDW 12.7 Plt Count 149 D MPV 9.1 Absolute Neuts (auto) Neutrophils % Lymphocytes % Monocytes % Eosinophils % Basophils % Nucleated RBC % PT with INR INR PTT (Actin FS) Sodium 133 L Potassium 3.7 Chloride 94 L Carbon Dioxide 32 Anion Gap 8 BUN 14.0 Creatinine 1.0 Est GFR (CKD-EPI)AfAm 113.31 Est GFR (CKD-EPI)NonAf 97.76 Random Glucose 105 Hemoglobin A1c % Calcium 8.0 L Phosphorus 1.7 L Magnesium 2.6 H Total Bilirubin AST ALT Alkaline Phosphatase Creatine Kinase 150 Creatine Kinase Index No Result Required. CK-MB (CK-2) < 1.0 Troponin I 0.10 H Total Protein Albumin Triglycerides Cholesterol Total LDL Cholesterol HDL Cholesterol Lipase TSH COVID-19 (VAN) 02/13/20 02/13/20 02/14/20 21:35 21:35 05:40 WBC 9.3 RBC 3.51 L Hgb 12.4 Hct 35.8 MCV 101.8 H MCH 35.2 H MCHC 34.6 RDW 12.8 Plt Count 169 MPV 9.1 Absolute Neuts (auto) 7.0 Neutrophils % 75.2 Lymphocytes % 13.0 Monocytes % 10.7 H Eosinophils % 0.5 D Basophils % 0.6 Nucleated RBC % 0 PT with INR INR PTT (Actin FS) Sodium Potassium Chloride Carbon Dioxide Anion Gap BUN Creatinine Est GFR (CKD-EPI)AfAm Est GFR (CKD-EPI)NonAf Random Glucose Hemoglobin A1c % Calcium Phosphorus Magnesium Total Bilirubin AST ALT Alkaline Phosphatase Creatine Kinase 159 Creatine Kinase Index No Result Required. CK-MB (CK-2) < 1.0 Troponin I Total Protein Albumin Triglycerides 251 H Cholesterol 188 Total LDL Cholesterol 130 H HDL Cholesterol 14 L Lipase TSH COVID-19 (VAN) 02/14/20 02/14/20 02/14/20 05:40 05:40 11:35 WBC RBC Hgb Hct MCV MCH MCHC RDW Plt Count MPV Absolute Neuts (auto) Neutrophils % Lymphocytes % Monocytes % Eosinophils % Basophils % Nucleated RBC % PT with INR 13.80 H INR 1.17 H PTT (Actin FS) 38.6 H Sodium 132 L Potassium 3.1 L Chloride 95 L Carbon Dioxide 29 Anion Gap 8 BUN 13.0 Creatinine 0.8 Est GFR (CKD-EPI)AfAm 135.08 Est GFR (CKD-EPI)NonAf 116.55 Random Glucose 99 Hemoglobin A1c % 5.0 Calcium 8.5 Phosphorus 1.4 L Magnesium 2.4 Total Bilirubin 7.9 H D AST 230 H ALT 62 H Alkaline Phosphatase 283 H Creatine Kinase Creatine Kinase Index CK-MB (CK-2) Troponin I 0.03 Total Protein 7.0 Albumin 3.2 L Triglycerides Cholesterol Total LDL Cholesterol HDL Cholesterol Lipase TSH 1.64 COVID-19 (VAN) Active Medications Generic Name Dose Route Start Last Admin Trade Name Freq PRN Reason Stop Dose Admin Chlorhexidine Gluconate 1 applic 02/14/20 22:00 Hibiclens For Decolonization - TP HS MONTY Heparin Sodium (Porcine) 5,000 unit 02/13/20 22:00 02/14/20 14:26 Heparin - SQ 5,000 unit TID [facility] Administration Sodium Chloride 1,000 mls @ 100 mls/hr 02/14/20 14:00 02/14/20 14:58 Normal Saline - IV 100 mls/hr ASDIR [facility] Administration Lorazepam 1 mg 02/15/20 05:00 Ativan - PO 02/15/20 23:01 0500,1100,1700,2300 [facility] Lorazepam 1 mg 02/13/20 15:06 02/14/20 02:16 Ativan - PO 02/15/20 23:59 1 mg Q4H PRN Administration Symptoms of Withdrawal Lorazepam 2 mg 02/13/20 17:00 02/14/20 10:44 Ativan - PO 02/14/20 23:01 2 mg 0500,1100,1700,2300 [facility] Administration Lorazepam 0.5 mg 02/16/20 05:00 Ativan - PO 02/16/20 23:01 Q6H [facility] Lorazepam 0.5 mg 02/16/20 00:00 Ativan - PO 02/17/20 00:00 Q4H PRN Symptoms of Withdrawal Lorazepam 0.5 mg 02/17/20 05:00 02/14/20 03:00 Ativan - PO 02/17/20 05:01 0.5 mg ONCE ONE Administration Mupirocin 1 applic 02/14/20 22:00 Bactroban Ointment (For Decolonization) - NS 02/19/20 21:59 BID [facility] Pantoprazole Sodium 40 mg 02/14/20 10:00 02/14/20 09:05 Protonix - PO 40 mg DAILY [facility] Administration IMGAING: RUQ sono: Negative for acute pathology, there is hepatomegaly and fatty infiltration, distended gallbladder with some sludge without findings to suggest acute cholecystitis EKG: sinus tachycardia at 118 bpm, no interval abnormalities, narrow QRS, ST and T wave segments and morphology normal. Nonspecific T wave abnormalities some limitations with artifact due to his tremors ASSESSMENT/PLAN: 34 yo male presented to the ED with moderate to severe tremors, diaphoresis, and tachycardia. Patient is in acute alcohol withdrawal with a CIWA score 20. Patient being admitted to tele for detox and monitoring for complications of withdrawal. Alcohol intoxication & Withdrawal - - not responding to ativan protocol, symptoms are severe with CIWA score > 23 this AM. - Patient being transferred to ICU for possible ativan drip and respiratory monitoring Liver Cirrhosis & transaminitis - AST 338 ALT 74, total bili 10.6 >> trending now 230/62 & total bili 7.9, Direct bilirubin is 5.9 - Today;s ABIC score 5.21 - low risk & Maddrey's Discriminate score 16.2 - good prognosis - A1C 5 - FOBT negative Elevated Trops - most likely demand ischemia/ EKG sinus tachy - trended down, 3rd trop 0.03 DISPO ICU for treatment and management of complicated alcohol withdrawal Visit type - Emergency Visit Emergency Visit: Yes ED Registration Date: 02/13/20 Care time: The patient presented to the Emergency Department on the above date and was hospitalized for further evaluation of their emergent condition. - New Patient This patient is new to me today: No - Critical Care Critical Care patient: Yes Total Critical Care Time (in minutes): 40 Critical Care Statement: The care of this patient involved high complexity decision making to prevent further life threatening deterioration of the patient's condition and/or to evaluate & treat vital organ system(s) failure or risk of failure. - Discharge Referral Referred to [facility] Med P.C.: No ATTENDING PHYSICIAN STATEMENT I saw and evaluated the patient. I reviewed the resident's note and discussed the case with the resident. I agree with the resident's findings and plan as documented. SUBJECTIVE: OBJECTIVE: ASSESSMENT AND PLAN:
[2020-02-14] MEDS ORDERED: FOLIC ACID INJECTION - 1 MG, THIAMINE HCL 100 MG, MULTIVIT INJECTION ADULT 10 ML in SOD... IVPB ONE (18:00)
[2020-02-14] MEDS ORDERED: CHLORHEXIDINE GLUCONATE 4% CLEANSER FOR DECOLONIZATION TP SCH (22:00)
[2020-02-14] MEDS ORDERED: MUPIROCIN 2% TOPICAL OINTMENT FOR DECOLONIZATION NS SCH (22:00)
[2020-02-14] MEDS: LACTULOSE 20 GM/30 ML UDC (FOR ORAL USE ONLY) PO PRN (23:05)
[2020-02-15] MEDS ORDERED: LORazepam 1 MG TABLET PO SCH (05:00)
[2020-02-15] MEDS: LACTULOSE 20 GM/30 ML UDC (FOR ORAL USE ONLY) PO PRN (05:39)
[2020-02-15] MEDS: HEPARIN NA (PORCINE) 5,000 UNITS/ML 1ML VIAL SQ SCH ×3 (05:39→21:47)
[2020-02-15 06:52] LABS: HEMATOCRIT 35.6 % (35.4-49); HEMOGLOBIN 12.3 GM/dL (11.7-16.9); MCH 35.5 pg (25.7-33.7); MCHC 34.6 g/dl (32.0-35.9); MEAN CELL VOLUME 102.5 fl (80-96); MEAN PLT VOLUME 8.4 fl (7.5-11.1); PLATELET COUNT 212 K/MM3 (134-434); RBC 3.47 M/mm3 (4.00-5.60); WHITE BLOOD COUNT 11.7 K/mm3 (4.0-10.0)
[2020-02-15 07:22] LABS: ALBUMIN 2.9 g/dl (3.4-5.0); BILIRUBIN,TOTAL 7.1 mg/dL (0.2-1); BLOOD UREA NITROGEN 8.2 mg/dL (7-18); CALCIUM 8.6 mg/dL (8.5-10.1); CREATININE 0.7 mg/dL (0.55-1.3); MAGNESIUM 2.1 mg/dL (1.8-2.4); PHOSPHOROUS 2.6 mg/dL (2.5-4.9); POTASSIUM 3.2 mmol/L (3.5-5.1); TOT PROT 6.5 g/dl (6.4-8.2)
[2020-02-15] MEDS ORDERED: POTASSIUM CHLORIDE ORAL LIQUID 20 MEQ/15 ML PO ONE (07:26)
[2020-02-15] MEDS ORDERED: LORazepam 1 MG TABLET PO PRN (08:05)
--- NOTE | 2020-02-15 08:11 | PN ---
Progress Note (short form) - Note Progress Note: Seen and examined in the ICU Admitted to ICU overnight for possible ativan drip Withdrawal symptoms improved w/ ativan IV pushes and drip was not required This AM awake, alert and cooperative w/o signs of withdrawal Active Medications Chlorhexidine Gluconate (Hibiclens For Decolonization -) 1 applic TP HS [facility] Folic Acid (Folic Acid -) 1 mg PO DAILY [facility] Heparin Sodium (Porcine) (Heparin -) 5,000 unit SQ TID [facility] Last Admin: 02/15/20 05:39 Dose: 5,000 unit Documented by: Sodium Chloride (Normal Saline -) 1,000 mls @ 100 mls/hr IV ASDIR [facility] Last Admin: 02/15/20 03:27 Dose: 100 mls/hr Documented by: Potassium Chloride (Potassium Chloride 10 Meq Premix Ivpb -) 10 meq in 100 mls @ 100 mls/hr IVPB Q60M [facility] Stop: 02/15/20 10:29 Lactulose (Cephulac (Oral Use)) 20 gm PO QID PRN PRN Reason: CONSTIPATION Last Admin: 02/15/20 05:39 Dose: 20 gm Documented by: Lorazepam (Ativan -) 1 mg PO 0500,1100,1700,2300 [facility] Stop: 02/16/20 23:01 Lorazepam (Ativan -) 1 mg PO Q4H PRN PRN Reason: Symptoms of Withdrawal Stop: 02/17/20 00:00 Lorazepam (Ativan) 2 mg PO 0500,1100,1700,2300 [facility] Stop: 02/15/20 23:01 Lorazepam (Ativan -) 0.5 mg PO Q6H [facility] Stop: 02/17/20 23:01 Lorazepam (Ativan -) 0.5 mg PO Q4H PRN PRN Reason: Symptoms of Withdrawal Stop: 02/18/20 00:00 Lorazepam (Ativan -) 0.5 mg PO ONCE ONE Stop: 02/18/20 05:01 Multivitamins/Minerals/Vitamin C (Tab-A-Vit -) 1 tab PO DAILY [facility] Mupirocin (Bactroban Ointment (For Decolonization) -) 1 applic NS BID [facility] Stop: 02/19/20 21:59 Pantoprazole Sodium (Protonix -) 40 mg PO DAILY [facility] Potassium Chloride (Potassium Chloride Oral Liquid) 40 meq PO ONCE ONE Stop: 02/15/20 07:27 Thiamine HCl (Vitamin B1 -) 100 mg PO Q12H [facility] Vital Signs Period Temp Pulse Resp BP Sys/Muniz Pulse Ox Last 24 Hr 97.8 F-99.1 F 91-114 18-25 101-117/48-74 96-98 Intake & Output 02/12/20 02/13/20 02/14/20 02/15/20 23:59 23:59 23:59 23:59 Intake Total 410 610 300 Output Total 500 Balance 410 110 300 Weight 63.503 kg 63.503 kg Exam: Neuro: awake, alert cooperative, mild anxiety noted Pulm: CTA CV: RRR Abd: SNTND +BS Ext: WWP CBC, BMP 02/15/20 06:05 02/15/20 06:05 Current Active Problems Alcohol withdrawal (Acute) Alcoholic hepatitis (Acute) Elevated troponin (Acute) Hyperbilirubinemia (Acute) Hypokalemia (Acute) Hypomagnesemia (Acute) - symptom triggered EtOH treatment per protocol - d/c ativan drip order - advance feeds - cont thiamine/folic acid - d/c lactulose no signs of HE - PPI - UFH sq if withdrawal symptoms cont to be well controlled w/ PO ativan can transfer to floor [facility] CCT: 35m
--- NOTE | 2020-02-15 08:33 | CON.GI ---
Consult Consult Specialty:: GI - hepatology Reason for Consultation:: Alcoholic hepatitis - History of Present Illness Chief Complaint: 34 M h/o alcohol abuse, past detox, admitted with tremors, hyponatremia, jaundice, positive blood alcohol level. History of Present Illness: Since admission his hyponatremia has resolved and his jaundice is improving. He has a normal platelet count, no splenomegaly on sonogram: CBC,CMP WBC 11.7 K/mm3 (4.0-10.0) H 02/15/20 06:05 RBC 3.47 M/mm3 (4.00-5.60) L 02/15/20 06:05 Hgb 12.3 GM/dL (11.7-16.9) 02/15/20 06:05 Hct 35.6 % (35.4-49) 02/15/20 06:05 MCV 102.5 fl (80-96) H 02/15/20 06:05 MCH 35.5 pg (25.7-33.7) H 02/15/20 06:05 MCHC 34.6 g/dl (32.0-35.9) 02/15/20 06:05 RDW 13.0 % (11.9-15.9) 02/15/20 06:05 Plt Count 212 K/MM3 (134-434) D 02/15/20 06:05 MPV 8.4 fl (7.5-11.1) 02/15/20 06:05 Absolute Neuts (auto) 7.0 K/mm3 (1.5-8.0) 02/14/20 05:40 Neutrophils % 75.2 % (42.8-82.8) 02/14/20 05:40 Lymphocytes % 13.0 % (8-40) 02/14/20 05:40 Monocytes % 10.7 % (3.8-10.2) H 02/14/20 05:40 Eosinophils % 0.5 % (0-4.5) D 02/14/20 05:40 Basophils % 0.6 % (0-2.0) 02/14/20 05:40 Nucleated RBC % 0 % (0-0) 02/14/20 05:40 Sodium 136 mmol/L (136-145) 02/15/20 06:05 Potassium 3.2 mmol/L (3.5-5.1) L 02/15/20 06:05 Chloride 100 mmol/L (98-107) 02/15/20 06:05 Carbon Dioxide 28 mmol/L (21-32) 02/15/20 06:05 Anion Gap 8 MMOL/L (8-16) 02/15/20 06:05 BUN 8.2 mg/dL (7-18) 02/15/20 06:05 Creatinine 0.7 mg/dL (0.55-1.3) 02/15/20 06:05 Est GFR (CKD-EPI)AfAm 142.70 02/15/20 06:05 Est GFR (CKD-EPI)NonAf 123.13 02/15/20 06:05 POC Glucometer 136 UNITS (80-120) 02/13/20 10:08 Random Glucose 102 mg/dL (74-106) 02/15/20 06:05 Hemoglobin A1c % 5.0 % (4.2-6.3) 02/14/20 05:40 Calcium 8.6 mg/dL (8.5-10.1) 02/15/20 06:05 Phosphorus 2.6 mg/dL (2.5-4.9) 02/15/20 06:05 Magnesium 2.1 mg/dL (1.8-2.4) 02/15/20 06:05 Total Bilirubin 7.1 mg/dL (0.2-1) H 02/15/20 06:05 Direct Bilirubin 5.9 mg/dL (0.0-0.2) H 02/14/20 05:40 AST 258 U/L (15-37) H 02/15/20 06:05 ALT 80 U/L (13-61) H 02/15/20 06:05 Alkaline Phosphatase 281 U/L (45-117) H 02/15/20 06:05 Ammonia 71.50 umol/L (11-32) H 02/14/20 19:30 Creatine Kinase 159 U/L (26-308) 02/13/20 21:35 Creatine Kinase Index No Result Required. 02/13/20 21:35 CK-MB (CK-2) < 1.0 ng/mL (0.5-3.6) 02/13/20 21:35 Troponin I 0.03 ng/ml (0.00-0.05) 02/14/20 05:40 Total Protein 6.5 g/dl (6.4-8.2) 02/15/20 06:05 Albumin 2.9 g/dl (3.4-5.0) L 02/15/20 06:05 Triglycerides 251 mg/dL (0-150) H 02/13/20 21:35 Cholesterol 188 mg/dL (50-200) 02/13/20 21:35 Total LDL Cholesterol 130 mg/dL (5-100) H 02/13/20 21:35 HDL Cholesterol 14 mg/dL (40-60) L 02/13/20 21:35 Lipase 353 U/L (73-393) 02/13/20 09:30 Vitamin B12 1082 pg/ml (193-986) H 02/15/20 06:05 Serum Folate 8 ng/mL (3.1-17.5) 02/15/20 06:05 Beta-Hydroxybutyrate 7.3 mg/dL (0.2-2.8) H 02/13/20 09:30 TSH 1.64 uIU/ml (0.358-3.74) 02/14/20 05:40 - History Source History Provided By: Patient, Medical Record Limitations to Obtaining History: No Limitations - Past Medical History Cardio/Vascular: Yes: HTN, Hyperlipdemia Gastrointestinal: Yes: Gastritis Psych: Yes: Addictions (Alcohol abuse with past detox) - Alcohol/Substance Use Hx Alcohol Use: Yes (1/2 pint hard liquor) - Smoking History Smoking history: Never smoked Have you smoked in the past 12 months: No Aproximately how many cigarettes per day: 3 Home Medications - Allergies Allergies/Adverse Reactions: Allergies Allergy/AdvReac Type Severity Reaction Status Date / Time No Known Allergies Allergy Verified 02/13/20 10:00 - Home Medications Home Medications: Ambulatory Orders NK [No Known Home Medication] 02/13/20 Physical Exam-GI Vital Signs: Vital Signs Temperature 97.8 F 02/15/20 05:00 Pulse Rate 101 H 02/15/20 06:00 Respiratory Rate 20 02/15/20 06:00 Blood Pressure 109/74 02/15/20 06:00 O2 Sat by Pulse Oximetry (%) 98 02/14/20 22:00 Eyes: Yes: Sclera Icterus ...Rectal Exam: Yes: Deferred Labs: CBC, BMP 02/15/20 06:05 02/15/20 06:05 INR, PTT INR 1.17 (0.83-1.09) H 02/14/20 11:35 Imaging - Results Ultrasound: Report Reviewed Problem List - Problems (1) Alcoholic hepatitis Code(s): K70.10 - ALCOHOLIC HEPATITIS WITHOUT ASCITES Assessment/Plan 1) Alcoholic hepatitis. He is clearly improving and there is nothing in his labs or sonogram to suspect cirrhosis at this time. No indication for EGD. No sign of encephalopathy. 2) Would continue benzodiazepine to treat withdrawal; allow diet; transfer to floor. 3) I had a long discussion with the patient about the need to join a support group such as AA to stay sober after discharge. Referral to an outpatient alcohol abuse program on discharge.
[2020-02-15] MEDS: KCL 10 MEQ IVPB 10 MEQ/100 ML INFUS.BAG IVPB SCH ×2 (09:37→10:18)
[2020-02-15] MEDS: FOLIC ACID 1 MG TABLET (FP) PO SCH (09:38)
[2020-02-15] MEDS: MULTIVITAMINS (DAILY MVI) TABLET (FP) PO SCH (09:38)
[2020-02-15] MEDS: THIAMINE HCL 100 MG TABLET (FP) PO SCH ×2 (09:38→21:47)
[2020-02-15] MEDS: PANTOPRAZOLE 40 MG TABLET PO SCH (09:38)
[2020-02-15] MEDS: LORazepam 2 MG TABLET PO SCH ×2 (10:09→12:07)
[2020-02-15] MEDS: MUPIROCIN 2% TOPICAL OINTMENT FOR DECOLONIZATION NS SCH ×2 (10:12→21:47)
[2020-02-15] MEDS: LORazepam 1 MG TABLET PO SCH ×2 (17:52→21:59)
[2020-02-15] MEDS ORDERED: CHLORHEXIDINE GLUCONATE 4% CLEANSER FOR DECOLONIZATION TP SCH (22:00)
[2020-02-16] MEDS ORDERED: LORazepam 0.5 MG TABLET PO PRN
[2020-02-16] MEDS ORDERED: LORazepam 0.5 MG TABLET PO SCH (05:00)
[2020-02-16] MEDS: LORazepam 1 MG TABLET PO SCH ×4 (05:53→11:24)
[2020-02-16] MEDS: HEPARIN NA (PORCINE) 5,000 UNITS/ML 1ML VIAL SQ SCH ×3 (05:54→21:21)
[2020-02-16 06:27] LABS: HEMATOCRIT 36.5 % (35.4-49); HEMOGLOBIN 12.6 GM/dL (11.7-16.9); MCH 35.8 pg (25.7-33.7); MCHC 34.5 g/dl (32.0-35.9); MEAN CELL VOLUME 103.7 fl (80-96); MEAN PLT VOLUME 8.3 fl (7.5-11.1); PLATELET COUNT 256 K/MM3 (134-434); RBC 3.52 M/mm3 (4.00-5.60); RDW 13.4 % (11.9-15.9); WHITE BLOOD COUNT 14.3 K/mm3 (4.0-10.0)
[2020-02-16 07:09] LABS: ALBUMIN 2.8 g/dl (3.4-5.0); BILIRUBIN,TOTAL 6.6 mg/dL (0.2-1); BLOOD UREA NITROGEN 5.3 mg/dL (7-18); CALCIUM 9.2 mg/dL (8.5-10.1); CREATININE 0.7 mg/dL (0.55-1.3); POTASSIUM 3.5 mmol/L (3.5-5.1); TOT PROT 6.3 g/dl (6.4-8.2)
--- NOTE | 2020-02-16 07:43 | PN ---
Progress Note (short form) - Note Progress Note: Progress Note: Seen and examined in the ICU Withdrawal symptoms improved w/ ativan IV pushes and drip was not required This AM awake, alert and cooperative w/o signs of withdrawal Active Medications Chlorhexidine Gluconate (Hibiclens For Decolonization -) 1 applic TP HS [facility] Last Admin: 02/15/20 21:47 Dose: 1 applic Documented by: Folic Acid (Folic Acid -) 1 mg PO DAILY [facility] Last Admin: 02/16/20 09:15 Dose: 1 mg Documented by: Heparin Sodium (Porcine) (Heparin -) 5,000 unit SQ TID [facility] Last Admin: 02/16/20 05:54 Dose: 5,000 unit Documented by: Lorazepam (Ativan -) 1 mg PO 0500,1100,1700,2300 [facility] Stop: 02/16/20 23:01 Last Admin: 02/16/20 11:24 Dose: 1 mg Documented by: Lorazepam (Ativan -) 1 mg PO Q4H PRN PRN Reason: Symptoms of Withdrawal Stop: 02/17/20 00:00 Last Admin: 02/15/20 09:41 Dose: 1 mg Documented by: Lorazepam (Ativan -) 0.5 mg PO Q6H [facility] Stop: 02/17/20 23:01 Lorazepam (Ativan -) 0.5 mg PO Q4H PRN PRN Reason: Symptoms of Withdrawal Stop: 02/18/20 00:00 Lorazepam (Ativan -) 0.5 mg PO ONCE ONE Stop: 02/18/20 05:01 Multivitamins/Minerals/Vitamin C (Tab-A-Vit -) 1 tab PO DAILY [facility] Last Admin: 02/16/20 09:15 Dose: 1 tab Documented by: Mupirocin (Bactroban Ointment (For Decolonization) -) 1 applic NS BID [facility] Stop: 02/19/20 21:59 Last Admin: 02/16/20 09:15 Dose: 1 applic Documented by: Pantoprazole Sodium (Protonix -) 40 mg PO DAILY [facility] Last Admin: 02/16/20 09:15 Dose: 40 mg Documented by: Thiamine HCl (Vitamin B1 -) 100 mg PO Q12H [facility] Last Admin: 02/16/20 08:57 Dose: 100 mg Documented by: Vital Signs Period Temp Pulse Resp BP Sys/Muniz Pulse Ox Last 24 Hr 98.1 F-98.8 F 95-112 16-27 96-122/59-85 97-97 Intake & Output 02/13/20 02/14/20 02/15/20 02/16/20 23:59 23:59 23:59 23:59 Intake Total 138 753 6898 480 Output Total 500 600 Balance 710 687 5515 -120 Weight 63.503 kg 63.503 kg Exam: Neuro: awake, alert cooperative, mild anxiety noted Pulm: CTA CV: RRR Abd: SNTND +BS Ext: WWP CBC, BMP 02/16/20 05:45 02/16/20 05:45 Current Active Problems Alcohol withdrawal (Acute) Alcoholic hepatitis (Acute) Elevated troponin (Acute) Hyperbilirubinemia (Acute) - symptom triggered EtOH treatment per protocol - advance feeds - cont thiamine/folic acid - PPI - DVT ppx - Consider transferring to [facility] for detox Misty NOWAK CCT: 35m
--- NOTE | 2020-02-16 08:00 | PN ---
Progress Note (short form) - Note Progress Note: Awake, alert, no tremors, no signs of withdrawal symptoms. Tolerating regular diet. Labs show continued improvement in liver chemistries: Hepatic Panel Total Bilirubin 6.6 mg/dL (0.2-1) H 02/16/20 05:45 Direct Bilirubin 5.9 mg/dL (0.0-0.2) H 02/14/20 05:40 AST 176 U/L (15-37) H 02/16/20 05:45 ALT 76 U/L (13-61) H 02/16/20 05:45 Alkaline Phosphatase 280 U/L (45-117) H 02/16/20 05:45 Albumin 2.8 g/dl (3.4-5.0) L 02/16/20 05:45 Impression: Alcoholic hepatitis, improving. Will no longer follow. Problem List - Problems (1) Alcoholic hepatitis Code(s): K70.10 - ALCOHOLIC HEPATITIS WITHOUT ASCITES
[2020-02-16] MEDS: THIAMINE HCL 100 MG TABLET (FP) PO SCH ×2 (08:57→19:22)
[2020-02-16] MEDS: MULTIVITAMINS (DAILY MVI) TABLET (FP) PO SCH (09:15)
[2020-02-16] MEDS: PANTOPRAZOLE 40 MG TABLET PO SCH (09:15)
[2020-02-16] MEDS: MUPIROCIN 2% TOPICAL OINTMENT FOR DECOLONIZATION NS SCH (09:15)
[2020-02-16] MEDS: FOLIC ACID 1 MG TABLET (FP) PO SCH (09:15)
[2020-02-16] MEDS ORDERED: LORazepam 1 MG TABLET PO PRN (15:22)
[2020-02-17] MEDS ORDERED: LORazepam 0.5 MG TABLET PO PRN
[2020-02-17] MEDS ORDERED: LORazepam 0.5 MG TABLET PO ONE (05:00)
[2020-02-17] MEDS ORDERED: LORazepam 0.5 MG TABLET PO SCH (05:00)
[2020-02-17] MEDS: HEPARIN NA (PORCINE) 5,000 UNITS/ML 1ML VIAL SQ SCH ×3 (05:41→21:30)
[2020-02-17] MEDS: THIAMINE HCL 100 MG TABLET (FP) PO SCH ×2 (08:11→21:30)
[2020-02-17 08:13] LABS: HEMATOCRIT 37.2 % (35.4-49); HEMOGLOBIN 12.6 GM/dL (11.7-16.9); MCH 35.5 pg (25.7-33.7); MCHC 33.9 g/dl (32.0-35.9); MEAN CELL VOLUME 104.7 fl (80-96); MEAN PLT VOLUME 8.1 fl (7.5-11.1); PLATELET COUNT 290 K/MM3 (134-434); RBC 3.55 M/mm3 (4.00-5.60); RDW 13.6 % (11.9-15.9); WHITE BLOOD COUNT 14.5 K/mm3 (4.0-10.0)
[2020-02-17 08:27] LABS: ALBUMIN 2.9 g/dl (3.4-5.0); BILIRUBIN,TOTAL 6.9 mg/dL (0.2-1); BLOOD UREA NITROGEN 7.2 mg/dL (7-18); CALCIUM 9.7 mg/dL (8.5-10.1); CREATININE 0.8 mg/dL (0.55-1.3); MAGNESIUM 1.6 mg/dL (1.8-2.4); POTASSIUM 4.1 mmol/L (3.5-5.1); TOT PROT 6.6 g/dl (6.4-8.2)
[2020-02-17] MEDS: FOLIC ACID 1 MG TABLET (FP) PO SCH (09:06)
[2020-02-17] MEDS: PANTOPRAZOLE 40 MG TABLET PO SCH (09:06)
[2020-02-17] MEDS: MULTIVITAMINS (DAILY MVI) TABLET (FP) PO SCH (09:06)
[2020-02-18] MEDS ORDERED: LORazepam 0.5 MG TABLET PO ONE (05:00)
[2020-02-18] MEDS: HEPARIN NA (PORCINE) 5,000 UNITS/ML 1ML VIAL SQ SCH (05:48)
[2020-02-18 07:14] LABS: BASO % 0.8 % (0-2.0); EOS % 1.7 % (0-4.5); HEMATOCRIT 37.5 % (35.4-49); LYMPH % 12.9 % (8-40); MCH 36.2 pg (25.7-33.7); MCHC 34.6 g/dl (32.0-35.9); MEAN CELL VOLUME 104.8 fl (80-96); MONO % 16.9 % (3.8-10.2); NEUT % 67.7 % (42.8-82.8); PLATELET COUNT 318 K/MM3 (134-434); RBC 3.58 M/mm3 (4.00-5.60); WHITE BLOOD COUNT 14.4 K/mm3 (4.0-10.0)
[2020-02-18 08:22] LABS: BILIRUBIN,TOTAL 6.9 mg/dL (0.2-1); BLOOD UREA NITROGEN 6.7 mg/dL (7-18); CALCIUM 9.6 mg/dL (8.5-10.1); CREATININE 0.7 mg/dL (0.55-1.3); POTASSIUM 3.5 mmol/L (3.5-5.1); TOT PROT 6.9 g/dl (6.4-8.2)
[2020-02-18] MEDS: THIAMINE HCL 100 MG TABLET (FP) PO SCH (08:24)
[2020-02-18] MEDS ORDERED: PT OWN MED DRAWER 7, Y5N ONE (09:09)
[2020-02-18] MEDS: FOLIC ACID 1 MG TABLET (FP) PO SCH (09:14)
[2020-02-18] MEDS: PANTOPRAZOLE 40 MG TABLET PO SCH (09:15)
[2020-02-18] MEDS: MULTIVITAMINS (DAILY MVI) TABLET (FP) PO SCH (09:15)
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
[2020-02-18 10:38] VITALS: BP 123/76; PULSE 102; TEMP 98.9
== END 2020-02-18 13:32 | disposition home or self-care (01) | DRG 775 ==
LOC: JER 09:01 → JERBED 13:00 → J4S 20:18 → JICU 02-14 17:40 → J8W 02-16 14:54
PROVIDERS: ADMIT Internal Medicine; ATTEND Family Medicine
PROC: HZ2ZZZZ Detoxification Services for Substance Abuse Treatment (ICD-10-PCS; principal; 2020-02-13)
DX: F10.230 Alcohol dependence with withdrawal, uncomplicated (principal); N17.9 Acute kidney failure, unspecified; I10 Essential (primary) hypertension; E78.5 Hyperlipidemia, unspecified; E87.6 Hypokalemia; E83.42 Hypomagnesemia; K70.10 Alcoholic hepatitis without ascites; E80.6 Other disorders of bilirubin metabolism; F10.232 Alcohol dependence with withdrawal with perceptual disturbance; K21.9 Gastro-esophageal reflux disease without esophagitis; E87.1 Hypo-osmolality and hyponatremia; F17.210 Nicotine dependence, cigarettes, uncomplicated; K70.30 Alcoholic cirrhosis of liver without ascites; I24.8 Other forms of acute ischemic heart disease; R00.0 Tachycardia, unspecified; F10.239 Alcohol dependence with withdrawal, unspecified; K72.90 Hepatic failure, unspecified without coma; E86.0 Dehydration; F32.9 Major depressive disorder, single episode, unspecified; R74.0 Nonspecific elevation of levels of transaminase and lactic acid dehydrogenase [LDH]
CPT/HCPCS: 36415; 76705-TC; 76775-TC; 80048; 80053; 80061; 80307; 81003; 82010; 82140; 82248; 82272; 82550; 82553; 82565; 82607; 82746; 82962; 83036; 83690; 83721; 83735; 84100; 84300; 84443; 84484; 85025; 85027; 85610; 85730; 93005; 93010; 99291; J1644; U0003

== ENCOUNTER 2020-04-14 13:58 | Inpatient (IN) | payer OTHER ==
--- NOTE | 2020-04-14 14:43 | PDOC ---
Rapid Medical Evaluation Chief Complaint: Alcohol intoxication Time Seen by Provider: 04/14/20 14:38 Medical Evaluation: Allergies Allergy/AdvReac Type Severity Reaction Status Date / Time No Known Allergies Allergy Verified 04/14/20 14:34 Vital Signs Temp Pulse Resp BP Pulse Ox 98.6 F 118 H 20 117/72 96 04/14/20 14:35 04/14/20 14:35 04/14/20 14:35 04/14/20 14:35 04/14/20 14:35 04/14/20 14:40 I have performed a brief in-person evaluation of this patient. The patient presents with a chief complaint of: h/o cirrhosis due to alcohol abuse,recently seen and referred for alcohol detox last month present for referral to detox. Pt report drinking 4 cans of 42 ounces beer an hour ago. Pertinent physical exam findings: A&O x 3 in NAD. fine hand tremors . no asterixes to hands. I have ordered the following: CBC, alcohol level, CMP The patient will proceed to the ED for further evaluation. Discharge Disposition - Diagnosis Alcohol dependence with uncomplicated withdrawal Alcoholic hepatitis Qualifiers: Ascites presence: without ascites Qualified Code(s): K70.10 - Alcoholic hepatitis without ascites - Discharge Dispostion Condition at time of disposition: Stable - Referrals - Patient Instructions - Post Discharge Activity
[2020-04-14] MEDS ORDERED: SODIUM CHLORIDE 1,000 ML IV STA (15:08)
[2020-04-14] MEDS ORDERED: ONDANSETRON 4 MG/2 ML VIAL IVPUSH ONE (15:08)
[2020-04-14] MEDS ORDERED: FAMOTIDINE 20 MG/50 ML IVPB 20 MG/50 ML MG IVPB ONE (15:18)
[2020-04-14] MEDS ORDERED: chlordiazePOXIDE HCL 25 MG CAPSULE PO ONE (15:31)
[2020-04-14] MEDS ORDERED: FAMOTIDINE 20 MG TABLET ONE (15:42)
[2020-04-14] MEDS ORDERED: chlordiazePOXIDE HCL 25 MG CAPSULE ONE ×2 (15:42→23:15)
--- NOTE | 2020-04-14 16:09 | PDOC ---
History of Present Illness - General Chief Complaint: Alcohol intoxication Stated Complaint: DETOX Time Seen by Provider: 04/14/20 14:38 - History of Present Illness Initial Comments: HPI Pt is a 35 yo M with PMH of alcoholic cirrhosis, alcohol abuse, gastritis, HTN, HLD, and depression presenting with both RUQ and generalized abdominal pain, alcohol withdrawal symptoms, and a desire to go for alcohol detox. RUQ Abd Pain: Pt reports having sharp 7/10 RUQ pain since Monday; pain is intermittent and can radiate to epigastric area. Pain is worse with alcohol use with only minimal pain when not drinking alcohol. Pt reports no other aggravating or alleviating factors. Generalized Abd Pain: Pt reports having 8-10/10 generalized burning abdominal pain with associated nausea and vomiting for 2 weeks Patient reports 5-6 episo joel of nb nb emesis daily for this duration (already with 4 episodes of vomiting today). Pt has also not had any food for the past 2 weeks with only intermittent toleration of liquids (water, gatorade, or wine coolers -9% alcohol). He also has not had a BM over the same duration. Pt denies increased urinary frequency or dysuria. Alcohol Withdrawal Symptoms: Pt reports n/v hx as above, mild tremors, mild diaphoresis, mild-moderate anxiety, mild agitation above baseline, numbness and tingling in b/l finger tips and b/l LE below the knees x several weeks, and insomnia x several weeks. Scleral icterus x 1 month. Last drink was a 24 oz wine cooler at 1:30 pm. Pt would like to be sent for alcohol detox after treatment of his symptoms. Pt also reports he stopped taking his wellbutrin 1 month ago because he didnt want to mix it with alcohol. PMHX: as in HPI PSHX: as in HPI Meds: Home Medications Medication Instructions Recorded Bupropion HCl [Bupropion Xl] 150 mg PO DAILY #30 tab.er.24h 02/18/20 Folic Acid - 1 mg PO DAILY #30 tablet 02/18/20 Multivitamins [Multivit ([facility] 1 tab PO DAILY #30 tab 02/18/20 Formulary)] Allergies: nkda Tob: denies Etoh: EtOH 42 oz of beer daily + many wine coolers (24 oz, 9% alcohol; amount varies); sometimes drinks a pint of liquor daily Rec drugs: denies PCP: Dr. Ang CAMPO GENERAL/CONSTITUTIONAL: No fever or chills. No weakness. + diaphoresis HEAD, EYES, EARS, NOSE AND THROAT: No change in vision. No ear pain or discharge. No sore throat. + scleral icterus CARDIOVASCULAR: No chest pain or shortness of breath RESPIRATORY: No cough, wheezing, or hemoptysis. GASTROINTESTINAL: No diarrhea; + nausea/vomiting/No BM + no food for two weeks, sharp RUQ pain , burning generalized abd pain GENITOURINARY: No dysuria, frequency, or change in urination. MUSCULOSKELETAL: No joint or muscle swelling or pain. No neck or back pain. SKIN: No rash NEUROLOGIC: No headache, vertigo, loss of consciousness, or changes in strength +numbness/tingling in all extremities, + mild fine tremor ENDOCRINE: No increased thirst. No abnormal weight change HEMATOLOGIC/LYMPHATIC: No anemia, easy bleeding, or history of blood clots. ALLERGIC/IMMUNOLOGIC: No hives or skin allergy. PE GENERAL: Awake, alert, and fully oriented, in no acute distress, mildly anxious HEAD: No signs of trauma, normocephalic, atraumatic EYES: PERRLA, EOMI, scleral icterus ENT: Auricles normal inspection, hearing grossly normal, nares patent, oropharynx clear without exudates. Dry mucosa. NECK: Normal ROM, supple, no lymphadenopathy, JVD, or masses LUNGS: No distress, speaks full sentences, clear to auscultation bilaterally HEART: Regular rate and rhythm, normal S1 and S2, no murmurs, rubs or gallops, peripheral pulses normal and equal bilaterally. ABDOMEN: Soft, nondistended, normoactive bowel sounds. TTP in RUQ with no guard ing, no rebound. Possible rosales sign +. EXTREMITIES : Normal inspection, Normal range of motion, no edema. No clubbing or cyanosis. NEUROLOGICAL: Cranial nerves II through XII grossly intact. Normal speech, normal gait, no focal sensorimotor deficit. Reports decreased sensation/parasthesias in b/l extremities SKIN: Warm, Dry, normal turgor, no rashes or lesions noted. No spider angioma. 04/14/20 18:05 Past History - Medical History Allergies/Adverse Reactions: Allergies Allergy/AdvReac Type Severity Reaction Status Date / Time No Known Allergies Allergy Verified 04/14/20 14:34 Home Medications: Ambulatory Orders Bupropion HCl [Bupropion Xl] 150 mg PO DAILY #30 tab.er.24h 02/18/20 Folic Acid - 1 mg PO DAILY #30 tablet 02/18/20 Multivitamins [Multivit ([facility] Formulary)] 1 tab PO DAILY #30 tab 02/18/20 Anemia: No Asthma: No Cancer: No Cardiac Disorders: No CVA: No COPD: No CHF: No Dementia: No Diabetes: No GI Disorders: No Disorders: No ([facility]) HTN: Yes Hypercholesterolemia: No Kidney Stones: No Liver Disease: No Seizures: No Thyroid Disease: No - Surgical History Abdominal Surgery: No Appendectomy: Yes (at age 25) Cardiac Surgery: No Cholecystectomy: No Lung Surgery: No Neurologic Surgery: No Orthopedic Surgery: No - Reproductive History Testicular Surgery: No - Immunization History Immunization Up to Date: Yes - Psycho-Social/Smoking History Smoking History: Never smoked Have you smoked in the past 12 months: No Number of Cigarettes Smoked Daily: 3 If you are a former smoker, when did you quit?: 2016 Cigars Per Day: 0 'Breaking Loose' booklet given: 09/28/16 - Substance Abuse Hx (Audit-C & DAST Scrn) How often the patient has a drink containing alcohol: 4 0r more times/wk Number of drinks the patient has on a typical day: 7 to 9 How often the patient has six or more drinks on one occasion: Daily or almost daily Score: In Men: 4 or > Positive; In Women: 3 or > Positive: 11 Screen Result (Pos requires Nsg. Audit-10AR): Positive In the last yr the pt used illegal drug/Rx for NonMed reason: No Score: Yes response is considered Positive: 0 Screen Result (Positive result requires Nsg. DAST-10): Negative *Physical Exam - Vital Signs Last Vital Signs Temp Pulse Resp BP Pulse Ox 98.6 F 118 H 20 117/72 96 04/14/20 14:35 04/14/20 14:35 04/14/20 14:35 04/14/20 14:35 04/14/20 14:35 ED Treatment Course - LABORATORY CBC & Chemistry Diagram: 04/14/20 15:58 04/14/20 15:58 - RADIOLOGY Radiology Studies Ordered: Category Date Time Status ABDOMEN US -LIMITED [US] Stat Ultrasound 04/14/20 15:56 Ordered - Medications Given in the ED: ED Medications Discontinued Medications Generic Name Dose Route Start Last Admin Trade Name Wayne PRN Reason Stop Dose Admin Chlordiazepoxide HCl 50 mg 04/14/20 15:31 04/14/20 16:00 Librium - PO 04/14/20 15:32 50 mg ONCE ONE Administration Famotidine/Sodium Chloride 20 mg in 50 mls @ 100 mls/hr 04/14/20 15:18 04/14/20 16:00 Pepcid 20 Mg Premixed Ivpb - IVPB 04/14/20 15:47 100 mls/hr ONCE ONE Administration Ondansetron HCl 4 mg 04/14/20 15:08 04/14/20 16:00 Zofran Injection IVPUSH 04/14/20 15:09 4 mg ONCE ONE Administration Medical Decision Making - Medical Decision Making MDM Pt is a 35 yo M with PMH of alcoholic cirrhosis, alcohol abuse, gastritis, HTN, HLD, and depression presenting with both sharp RUQ x 3 days and burning generalized abdominal pain x 2 weeks with associated daily nausea/vomiting, alcohol withdrawal symptoms, and a desire to go for alcohol detox. DDX including but not limited to: biliary colic, gastritis, metabolic/electrolyte derangements. GERD, PUD, esophageal spasm, pancreatitis, hepatitis, constipation, colitis, gastroenteritis, cholecystitis, UTI, pyelonephritis, renal colic, ileus, SBO, medication side effect, hernia, appendicitis, diverticulitis, vascular pathology unlikely. CIWA 10 W/U: - CBC, CMP, lipase - RUQ US - EKG TX: - pepcid - librium for alcohol withdrawal - IVF hydration, banana bag - reassess vitals after tx 04/14/20 16:40 - labs significant for: Na 120, K 2.1, Cl 68, HCO3 39 AST 334 ALT 97 Alk Phos 169 UA 2+ ptn, positive nitrite, 2+ bilirubin, 2+ LE - Will add on Urine Culture - Will give another liter of IVF - IV KCl and PO KCl - Will plan to admit 04/14/20 17:51 RUQ US with hepatomegaly; GB partially filled with sludge without gross stones and without sonographic evidence of acute cholecystitis Pt being admitted 04/14/20 18:11 Discharge - Discharge Information Problems reviewed: Yes Clinical Impression/Diagnosis: Alcohol dependence with uncomplicated withdrawal, Hypokalemia, Hyponatremia, Dehydration Alcoholic hepatitis Qualifiers: Ascites presence: without ascites Qualified Code(s): K70.10 - Alcoholic hepatitis without ascites Condition: Stable - Admission Yes - Follow up/Referral - Patient Discharge Instructions - Post Discharge Activity
--- NOTE | 2020-04-14 16:28 | PDOC ---
Attending Attestation - Resident Resident Name: Therese Latif - ED Attending Attestation I have performed the following: I have examined & evaluated the patient, The case was reviewed & discussed with the resident, I agree w/resident's findings & plan - HPI HPI: 04/14/20 16:26 35 yo M with PMH of alcoholic cirrhosis, alcohol abuse, gastritis, HTN, HLD, and depression presenting with abdominal pain x 2 weeks. Pt states he has epigastric/RUQ pain, 7/10, intermittent. Pain is worse with alcohol use with only minimal pain when not drinking alcohol. Pt reports no other aggravating or alleviating factors. He admits to general burning abdominal pain, a/w n/NBNB emesis. decreased PO and fluid intake over the past 2 weeks. drinks ETOH daily, 4 beers per day. admits to only intermittent toleration of liquids (water, gatorade, or wine coolers -9% alcohol). He also has not had a BM over the same duration. pt also admits to mild tremors, mild diaphoresis, mild-moderate anxiety, mild agitation above baseline, numbness and tingling in b/l finger tips and b/l LE below the knees x several weeks, and insomnia x several weeks. Scleral icterus x 1 month. Last drink was a 24 oz wine cooler at 1:30 pm. Pt would like to be sent for alcohol detox after treatment of his symptoms. Pt also reports he stopped taking his wellbutrin 1 month ago because he didnt want to mix it with alcohol. - Physicial Exam PE: 04/14/20 16:28 Agree with the resident's HPI and PE as documented in the electronic medical record. NAD, EOMI, PERRL, nl conjunctiva, scleral icterus; neck supple. lungs clear, +tachycardic, abdomen soft +epigastric TTP, No rebound, no guarding. Back nontender. LITTLEJOHN x4, no focal neuro deficits. No peripheral edema. normal color for ethnicity, WWP. 04/14/20 16:28 04/14/20 16:58 04/14/20 16:59 - Medical Decision Making 04/14/20 16:26 Vital Signs Temp Pulse Resp BP Pulse Ox 98.6 F 118 H 20 117/72 96 04/14/20 14:35 04/14/20 14:35 04/14/20 14:35 04/14/20 14:35 04/14/20 14:35 vitals reviewed afebrile tachy , likely pain vs acute alcohol withdrawal vs intox DDx abdominal pain: Renal colic, biliary colic, metabolic/electrolyte derangements. GERD, PUD, esophageal spasm, pancreatitis, hepatitis, constipation, colitis, gastroenteritis, cholecystitis, UTI, pyelonephritis, ileus, SBO, medication side effect, hernia, appendicitis, diverticulitis, vascular pathology unlikely. labs and lytes with hypokalemia 2.1, metabolic/electrolyte derangements hypo natremia likely from profound dehydration/poor intake. potassium repletion with k-riders and PO solution LFTs elevated, AST>ALT from etoh lipase is normal, not pancreatitis. GI cocktail, pepcid and librium for mild w/d sx banana bag IVF hydration reassess repeat VS after meds and pain control RUQ sono to assess GB pathology, cirrhosis and acute abdominal pathology related to his etoh abuse 04/14/20 18:01 RUQ sono with sludge, no cholecystitis, fatty liver and hepatomegaly. will admit to [facility] for alcohol w/d, mild; electrolyte/metabolic derangements, dehydration, pain control, hydration and medical management. 04/14/20 18:49 Discharge - Discharge Information Problems reviewed: Yes Clinical Impression/Diagnosis: Alcohol dependence with uncomplicated withdrawal, Hypokalemia, Hyponatremia, Dehydration Alcoholic hepatitis Qualifiers: Ascites presence: without ascites Qualified Code(s): K70.10 - Alcoholic hepatitis without ascites Condition: Stable - Admission Yes - Follow up/Referral - Patient Discharge Instructions - Post Discharge Activity
[2020-04-14 16:47] LABS: COCAINE, UR NEGATIVE ng/ml (CUTOFF=300); OPIATES, URI NEGATIVE ng/ml (CUTOFF=300); PHENCYCLIDINE,URINE NEGATIVE ng/ml (CUTOFF=25); URINE BARBITURATES NEGATIVE ng/ml (CUTOFF=200); URINE BENZODIAZEPINES NEGATIVE ng/ml (CUTOFF=200)
[2020-04-14 16:48] LABS: METHADONE, UR NEGATIVE ng/ml (CUTOFF=300); URINE AMPHETAMINES NEGATIVE ng/ml (CUTOFF=500)
[2020-04-14 17:03] LABS: EPI CELLS 7 /uL (0-25.1); HYALINE CASTS 0 /uL (0-3.1); PH,URINE 6.5 (5.0-8.0); URINE APPEARANCE CLEAR; URINE BILIRUBIN 2+ (NEGATIVE); URINE COLOR DK YELLOW; URINE GLUCOSE (UA) NEGATIVE (NEGATIVE); URINE KETONE NEGATIVE (NEGATIVE); URINE LEUK ESTERASE 2+ (NEGATIVE); URINE NITRITE POSITIVE (NEGATIVE); URINE PROTEIN 2+ (NEGATIVE); URINE RBC 11 /uL (0-23.9); URINE UROBILINOGEN >=8.0 E.U./dl mg/dL (0.2-1.0); URINE WBC 58 /uL (0-25.8)
[2020-04-14 17:12] LABS: INR 1.29 (0.83-1.09); PROTHROMBIN TIME (PATIENT) 15.3 SEC (9.7-13.0)
[2020-04-14 17:15] LABS: ACTIVATED PTT 33.8 SECONDS (25.2-36.5)
[2020-04-14 17:26] LABS: ALBUMIN 3.6 g/dl (3.4-5.0); BILIRUBIN,TOTAL 9.8 mg/dL (0.2-1); BLOOD UREA NITROGEN 10.8 mg/dL (7-18); CALCIUM 8.3 mg/dL (8.5-10.1); CREATININE 1.2 mg/dL (0.55-1.3); TOT PROT 8.1 g/dl (6.4-8.2)
[2020-04-14 17:28] LABS: POTASSIUM 2.1 mmol/L (3.5-5.1)
[2020-04-14] MEDS ORDERED: FOLIC ACID INJECTION - 1 MG, THIAMINE HCL 100 MG, MULTIVIT INJECTION ADULT 10 ML in SOD... IVPB ONE (17:34)
[2020-04-14] MEDS ORDERED: POTASSIUM CHLORIDE ORAL LIQUID 20 MEQ/15 ML PO ONE (17:34)
[2020-04-14] MEDS ORDERED: LACTATED RINGERS SOLUTION 1000 ML INFUS.BAG IV ONE (17:43)
[2020-04-14] MEDS ORDERED: POTASSIUM CHLORIDE ORAL LIQUID 20 MEQ/15 ML ONE (17:47)
[2020-04-14] MEDS ORDERED: KCL 10 MEQ IVPB 10 MEQ/100 ML INFUS.BAG IVPB ONE ×2 (18:23→19:44)
[2020-04-14] MEDS: KCL 10 MEQ IVPB 10 MEQ/100 ML INFUS.BAG IVPB SCH ×3 (18:38→20:40)
[2020-04-14] MEDS ORDERED: MORPHINE SULFATE 2 MG/ML VIAL IVPUSH PRN (18:39)
[2020-04-14] MEDS ORDERED: SODIUM CHLORIDE 1,000 ML IV SCH (18:45)
[2020-04-14 18:54] LABS: BASO % 0.7 % (0-2.0); HEMATOCRIT 47.7 % (35.4-49); HEMOGLOBIN 16.7 GM/dL (11.7-16.9); LYMPH % 11.6 % (8-40); MCH 33.4 pg (25.7-33.7); MCHC 34.9 g/dl (32.0-35.9); MEAN CELL VOLUME 95.6 fl (80-96); MEAN PLT VOLUME 8.9 fl (7.5-11.1); MONO % 14.4 % (3.8-10.2); NEUT % 73.3 % (42.8-82.8); PLATELET COUNT 89 K/MM3 (134-434); RBC 4.99 M/mm3 (4.00-5.60); RDW 12.9 % (11.9-15.9); WHITE BLOOD COUNT 9.6 K/mm3 (4.0-10.0)
--- NOTE | 2020-04-14 18:57 | HP ---
CHIEF COMPLAINT:RUQ epigastric pain, nausea and vomiting PCP:Dr. Yousif HISTORY OF PRESENT ILLNESS: 35 year old male with a past medical history of alcoholic cirrhosis, alcohol abuse, gastritis, hypertension, hyperlipidemia , and depression who presented with abdominal pain x 2 weeks. Patient described epigastric/RUQ pain, rating 7/10, and intermittent. Pain is worse with alcohol use with only minimal pain when not drinking alcohol. He reports he drinks ETOH daily, 4 beers per day. He admits to mild tremors, mild diaphoresis, mild-moderate anxiety, mild agitation above baseline, numbness and tingling in b/l finger tips and b/l LE below the knees x several weeks, and insomnia x several weeks. Scleral icterus x 1 month. Last drink was a 24 oz wine cooler at 1:30 pm. He reports he did not have a bowel movement for 2 weeks. Patient would like to be sent for alcohol detox after treatment of his symptoms. ER course was notable for: (1)transaminitis (alt 97, [id number]) (2)hyponatremia (3)hypokalemia (4)alcohol withdrawal symptoms- received a dose of librium (5)UA with positive nitrite, 2+ lukoesterase , 2+ bilirubin (6)thrombocytopenia Abdominal US with no acute findings. Recent Travel: denies PAST MEDICAL HISTORY: alcoholic cirrhosis alcohol abuse gastritis hypertension hyperlipidemia PAST SURGICAL HISTORY: none Social History: Smoking:denies Alcohol:drinks ETOH daily, 4 beers /day Drugs: denies Allergies No Known Allergies Allergy (Verified 04/14/20 14:34) HOME MEDICATIONS: Home Medications Medication Instructions Recorded Bupropion HCl [Bupropion Xl] 150 mg PO DAILY #30 tab.er.24h 02/18/20 Folic Acid - 1 mg PO DAILY #30 tablet 02/18/20 Multivitamins [Multivit ([facility] 1 tab PO DAILY #30 tab 02/18/20 Formulary)] REVIEW OF SYSTEMS CONSTITUTIONAL: Absent: fever, chills, diaphoresis, generalized weakness, malaise, loss of appetite, weight change HEENT: Absent: rhinorrhea, nasal congestion, throat pain, throat swelling, difficulty swallowing, mouth swelling, ear pain, eye pain, visual changes CARDIOVASCULAR: Absent: chest pain, syncope, palpitations, irregular heart rate, lightheadedness, peripheral edema RESPIRATORY: Absent: cough, shortness of breath, dyspnea with exertion, orthopnea, wheezing, stridor, hemoptysis GASTROINTESTINAL: Absent: abdominal pain, abdominal distension, nausea, vomiting, diarrhea, constipation, melena, hematochezia GENITOURINARY: Absent: dysuria, frequency, urgency, hesitancy, hematuria, flank pain, genital pain MUSCULOSKELETAL: Absent: myalgia, arthralgia, joint swelling, back pain, neck pain SKIN: Absent: rash, itching, pallor HEMATOLOGIC/IMMUNOLOGIC: Absent: easy bleeding, easy bruising, lymphadenopathy, frequent infections ENDOCRINE: Absent: unexplained weight gain, unexplained weight loss, heat intolerance, cold intolerance NEUROLOGIC: Absent: headache, focal weakness or paresthesias, dizziness, unsteady gait, seizure, mental status changes, bladder or bowel incontinence PSYCHIATRIC: Absent: anxiety, depression, suicidal or homicidal ideation, hallucinations. PHYSICAL EXAMINATION Vital Signs - 24 hr 04/14/20 14:35 Temperature 98.6 F Pulse Rate 118 H Respiratory 20 Rate Blood Pressure 117/72 O2 Sat by Pulse 96 Oximetry (%) General no acute distress Vital signs reviewed afebrile tachycardia noted Neck no JVD Lungs CTA nonlabored breathing effort no rales no wheezing Heart s1 s2 present rate tachycardic Abdomen soft nontender on light palpation nondistended Extremities warm to touch no pitting edema no cyanosis Skin nail beds and lip Mood calm appears cooperative and appropriate Laboratory Results - last 24 hr 04/14/20 04/14/20 04/14/20 15:58 15:58 15:58 PT with INR 15.30 H INR 1.29 H PTT (Actin FS) 33.8 Sodium 120 L Potassium 2.1 L* Chloride 68 L Carbon Dioxide 39 H Anion Gap 13 BUN 10.8 Creatinine 1.2 Est GFR (CKD-EPI)AfAm 90.26 Est GFR (CKD-EPI)NonAf 77.87 Random Glucose 94 Calcium 8.3 L Total Bilirubin 9.8 H AST 334 H ALT 97 H Alkaline Phosphatase 169 H Total Protein 8.1 Albumin 3.6 Lipase 194 Urine Color Dk yellow Urine Appearance Clear Urine pH 6.5 Ur Specific [place] 1.014 Urine Protein 2+ H Urine Glucose (UA) Negative Urine Ketones Negative Urine Blood Negative Urine Nitrite Positive H Urine Bilirubin 2+ H Urine Urobilinogen >=8.0 e.u./dl Ur Leukocyte Esterase 2+ H Urine WBC (Auto) 58 Urine RBC (Auto) 11 Urine Casts (Auto) 0 U Epithel Cells (Auto) 7 Opiates Screen Methadone Screen Barbiturate Screen Phencyclidine Screen Ur Amphetamines Screen MDMA (Ecstasy) Screen Benzodiazepines Screen Cocaine Screen U Marijuana (THC) Screen Alcohol, Quantitative 34.0 H 04/14/20 15:58 PT with INR INR PTT (Actin FS) Sodium Potassium Chloride Carbon Dioxide Anion Gap BUN Creatinine Est GFR (CKD-EPI)AfAm Est GFR (CKD-EPI)NonAf Random Glucose Calcium Total Bilirubin AST ALT Alkaline Phosphatase Total Protein Albumin Lipase Urine Color Urine Appearance Urine pH Ur Specific [place] Urine Protein Urine Glucose (UA) Urine Ketones Urine Blood Urine Nitrite Urine Bilirubin Urine Urobilinogen Ur Leukocyte Esterase Urine WBC (Auto) Urine RBC (Auto) Urine Casts (Auto) U Epithel Cells (Auto) Opiates Screen Negative Methadone Screen Negative Barbiturate Screen Negative Phencyclidine Screen Negative Ur Amphetamines Screen Negative MDMA (Ecstasy) Screen Negative Benzodiazepines Screen Negative Cocaine Screen Negative U Marijuana (THC) Screen Negative Alcohol, Quantitative ASSESSMENT/PLAN: Mr. Norton is a 35 year old male with a past medical history of alcoholic cirrhosis, alcohol abuse, gastritis, hypertension, hyperlipidemia , and depression who presented with abdominal pain x 2 weeks described as epigastric/RUQ pain, rating 7/10, and intermittent associated with nausea and vomiting. He was found to have severe hyponatremia, hypokalemia and transaminitis. #1 abdominal pain in the setting of alcohol use/cirrhosis transaminitis (alt 97, [id number]) abdominal US with no acute findings check CT scan of abdomen w/ contrast to exclude pathological findings GI consulted- Dr. Guidry c/w IV morphine for severe pain as needed c/w IV zofran as needed avoid tylenol and statin therapy in this setting thrombocytopenia, avoid asa #2 hyponatremia (severe) sodium 120, received IV NS and LR c/w LR @ 75 cc/hr repeat BMP in am #3 hypokalemia potassium 2.1 repleted repeat BMP at 1am monitor on telemetry for ventricular ectopy #4 asymptomatic UTI UA positive for nitrite and 2+ leukoesterase, low WBC no leukocytosis, currently afebrile pending urine culture will order dose of IV Ceftriaxone and will await for urine culture results #5 hypertension controlled not on meds #6 hyperlipidemia not on statin therapy due to transaminitis #7 alcohol withdrawal monitor for signs of DT's received librium 50mg once and banana bag c/w librium as per protocol with taper c/w thiamine consult case management in am as patient requesting alcohol detox upon discharge alcohol cessation discussed with patient and was strongly recommended. #8 r/o COVID follow up on COVID test results maintain strict isolation for droplet and contact precautions maintain o2 sat > 90% DVT Prophylaxis low risk avoid systemic anticoagulation in the setting of cirrhosis and high risk for bleeding SCD's FEN IVF LR @ 75cc/hr monitor BMP daily and replete electrolytes as needed NPO Family Medical History Family History: Unable to Obtain Visit type - Emergency Visit Emergency Visit: Yes ED Registration Date: 04/14/20 Care time: The patient presented to the Emergency Department on the above date and was hospitalized for further evaluation of their emergent condition. - New Patient This patient is new to me today: Yes Date on this admission: 04/14/20 - Critical Care Critical Care patient: No
[2020-04-14] MEDS ORDERED: LACTATED RINGERS SOLUTION 1,000 ML/1,000 ML INFUS.BAG IV SCH (19:45)
[2020-04-14] MEDS ORDERED: ONDANSETRON 4 MG/2 ML VIAL IVPUSH PRN (19:53)
[2020-04-14 20:58] LABS: URINE BACTERIA 5.7 /uL (0-1359)
[2020-04-14] MEDS ORDERED: CEFTRIAXONE 1 GM in DEXTROSE 5%-WATER - 50 ML IVPB ONE (22:58)
[2020-04-14] MEDS ORDERED: CEFTRIAXONE 1 GM/50 ML BAG ONE (23:15)
[2020-04-14] MEDS: chlordiazePOXIDE HCL 25 MG CAPSULE PO SCH (23:24)
[2020-04-15] MEDS: chlordiazePOXIDE HCL 25 MG CAPSULE PO SCH ×4 (00:02→18:25)
[2020-04-15 01:36] LABS: BLOOD UREA NITROGEN 7.7 mg/dL (7-18); CALCIUM 7.4 mg/dL (8.5-10.1); CREATININE 0.9 mg/dL (0.55-1.3)
[2020-04-15 01:44] LABS: POTASSIUM 2.7 mmol/L (3.5-5.1)
[2020-04-15] MEDS ORDERED: POTASSIUM CHLORIDE ORAL LIQUID 20 MEQ/15 ML PO ONE (01:45)
[2020-04-15] MEDS ORDERED: POTASSIUM CHLORIDE ORAL LIQUID 20 MEQ/15 ML ONE (01:49)
[2020-04-15] MEDS ORDERED: chlordiazePOXIDE HCL 25 MG CAPSULE ONE ×3 (05:31→18:15)
[2020-04-15 07:29] LABS: HEMATOCRIT 44.7 % (35.4-49); HEMOGLOBIN 15.4 GM/dL (11.7-16.9); MCH 33.3 pg (25.7-33.7); MCHC 34.5 g/dl (32.0-35.9); MEAN CELL VOLUME 96.5 fl (80-96); MEAN PLT VOLUME 8.9 fl (7.5-11.1); PLATELET COUNT 80 K/MM3 (134-434); RBC 4.63 M/mm3 (4.00-5.60); RDW 13.1 % (11.9-15.9); WHITE BLOOD COUNT 7.7 K/mm3 (4.0-10.0)
[2020-04-15 07:57] LABS: BLOOD UREA NITROGEN 7.9 mg/dL (7-18); CALCIUM 8.1 mg/dL (8.5-10.1); CREATININE 0.9 mg/dL (0.55-1.3); MAGNESIUM 1.5 mg/dL (1.8-2.4); POTASSIUM 3.3 mmol/L (3.5-5.1)
[2020-04-15] MEDS ORDERED: THIAMINE HCL 100 MG TABLET (FP) ONE (11:01)
[2020-04-15] MEDS: THIAMINE HCL 100 MG TABLET (FP) PO SCH (11:48)
[2020-04-15] MEDS: POTASSIUM CHLORIDE 40 MEQ in DEXTROSE 5%-WATER - 1,000 ML IVPB SCH (12:18)
--- NOTE | 2020-04-15 13:26 | PN ---
Progress Note (short form) - Note Progress Note: GI CONSULT DICTATED -- WITHDRAWAL PROTOCOL -- PPI -- ANTIEMETIC -- ETOH ABSTINENCE COUNSELING AND DETOX PROGRAM -- CLEAR LIQUID DIET ADVANCE TO LOW SODIUM DIET TOLERATED -- OUTPT EGD -- MONITOR LFT / INR Q12 WHILE HOSPITALIZED -- CHRONIC LIVER DISEASE SEROLOGY ORDERED
--- NOTE | 2020-04-15 13:28 | PN ---
Progress Note, Physician - Current Medication List Current Medications: Active Medications Chlordiazepoxide HCl (Librium -) 10 mg PO Q12H [facility] Stop: 04/18/20 18:01 Chlordiazepoxide HCl (Librium -) 50 mg PO Q6HPO [facility] Stop: 04/15/20 22:59 Last Admin: 04/15/20 12:10 Dose: 50 mg Documented by: Chlordiazepoxide HCl (Librium -) 25 mg PO [id number] [facility] Stop: 04/16/20 23:01 Chlordiazepoxide HCl (Librium -) 10 mg PO Q6HPO [facility] Stop: 04/17/20 18:01 Chlordiazepoxide HCl (Librium -) 10 mg PO ONCE ONE Stop: 04/19/20 06:01 Potassium Chloride 40 meq/ (Dextrose) 1,020 mls @ 83 mls/hr IVPB Q12H [facility] Last Admin: 04/15/20 12:18 Dose: 83 mls/hr Documented by: Morphine Sulfate (Morphine Sulfate) 2 mg IVPUSH Q4H PRN PRN Reason: PAIN LEVEL 7 - 10 Ondansetron HCl (Zofran Injection) 4 mg IVPUSH Q6H PRN PRN Reason: NAUSEA Thiamine HCl (Vitamin B1 -) 100 mg PO DAILY [facility] Last Admin: 04/15/20 11:48 Dose: 100 mg Documented by: - Objective Vital Signs: Vital Signs Temperature 98.5 F 04/15/20 07:02 Pulse Rate 84 04/15/20 07:02 Respiratory Rate 16 04/15/20 07:02 Blood Pressure 101/74 04/15/20 07:02 O2 Sat by Pulse Oximetry (%) 99 04/15/20 08:36 Cardiovascular: Yes: Regular Rate and Rhythm Respiratory: Yes: Regular, CTA Bilaterally Gastrointestinal: Yes: Normal Bowel Sounds, Soft. No: Tenderness Edema: No Neurological: Yes: Alert, Oriented Labs: CBC, BMP 04/15/20 06:30 04/15/20 06:30 INR, PTT INR 1.29 (0.83-1.09) H 04/14/20 15:58 Problem List - Problems (1) Alcohol dependence with uncomplicated withdrawal Assessment/Plan: monitor for signs of DT's received librium 50mg once and banana bag c/w librium as per protocol with taper c/w thiamine consult case management in am as patient requesting alcohol detox upon discharge alcohol cessation discussed with patient and was strongly recommended. Code(s): F10.230 - ALCOHOL DEPENDENCE WITH WITHDRAWAL, UNCOMPLICATED (2) Alcoholic hepatitis Assessment/Plan: Monitor trends ct noted Code(s): K70.10 - ALCOHOLIC HEPATITIS WITHOUT ASCITES Qualifiers: Ascites presence: without ascites Qualified Code(s): K70.10 - Alcoholic hepatitis without ascites (3) Abdominal pain Assessment/Plan: abdominal US with no acute findings check CT scan of abdomen noted GI consulted- Dr. Guidry avoid tylenol and statin therapy in this setting thrombocytopenia, avoid asa Code(s): R10.9 - UNSPECIFIED ABDOMINAL PAIN Qualifiers: Abdominal location: unspecified location Qualified Code(s): R10.9 - Unspecified abdominal pain (4) Hypokalemia Assessment/Plan: potassium 2.1 repleted repeat BMP at 1am monitor on telemetry for ventricular ectopy Laboratory Tests 04/14/20 04/15/20 04/15/20 15:58 01:00 06:30 Sodium 120 L 135 L 136 Potassium 2.1 L* 2.7 L* 3.3 L Code(s): E87.6 - HYPOKALEMIA (5) Hyponatremia Assessment/Plan: sodium 120, received IV NS and LR c/w LR @ 75 cc/hr repeat BMP Laboratory Tests 04/14/20 04/15/20 04/15/20 15:58 01:00 06:30 Sodium 120 L 135 L 136 Potassium 2.1 L* 2.7 L* 3.3 L Code(s): E87.1 - HYPO-OSMOLALITY AND HYPONATREMIA (6) UTI (urinary tract infection) Assessment/Plan: UA positive for nitrite and 2+ leukoesterase, low WBC no leukocytosis, currently afebrile pending urine culture will order dose of IV Ceftriaxone and will await for urine culture results Code(s): N39.0 - URINARY TRACT INFECTION, SITE NOT SPECIFIED
--- NOTE | 2020-04-15 17:56 | CONSULT ---
Consult Consult Specialty:: Nephrology Reason for Consultation:: hyponatremia - History of Present Illness Chief Complaint: abd pain History of Present Illness: Pt is a 35 year old male with pmhx of alcoholic liver cirrhosis, etoh abuse, gastritis, htn, hld, and depression who presents with abd pain. He follows with Dr Yousif. He is still actively drinkings. We were called to evaluate him for hyponatremia and hypokalemia. He is awake and alert. He says that the abd pain is worse when he drinks. He does complain of constipation. He says that he drinks "alot" and its mostly beer. - History Source History Provided By: Patient, Medical Record - Past Medical History Cardio/Vascular: Yes: HTN, Hyperlipdemia Gastrointestinal: Yes: Gastritis Psych: Yes: Addictions (Alcohol abuse with past detox) - Alcohol/Substance Use Hx Alcohol Use: Yes (1/2 pint hard liquor) - Smoking History Smoking history: Never smoked Have you smoked in the past 12 months: No Aproximately how many cigarettes per day: 3 If you are a former smoker, when did you quit?: 2016 Home Medications - Allergies Allergies/Adverse Reactions: Allergies Allergy/AdvReac Type Severity Reaction Status Date / Time No Known Allergies Allergy Verified 04/14/20 14:34 - Home Medications Home Medications: Ambulatory Orders Bupropion HCl [Bupropion Xl] 150 mg PO DAILY #30 tab.er.24h 02/18/20 Folic Acid - 1 mg PO DAILY #30 tablet 02/18/20 Multivitamins [Multivit ([facility] Formul[facility])] 1 tab PO DAILY #30 tab 02/18/20 Family Medical History Family History: Denies Review of Systems - Review of Systems Constitutional: reports: Malaise Eyes: reports: No Symptoms HENT: reports: No Symptoms Neck: reports: No Symptoms Cardiovascular: reports: No Symptoms Respiratory: reports: No Symptoms Gastrointestinal: reports: Abdominal Pain Genitourinary: reports: No Symptoms Musculoskeletal: reports: No Symptoms Integumentary: reports: No Symptoms Neurological: reports: No Symptoms Endocrine: reports: No Symptoms Hematology/Lymphatic: reports: No Symptoms Psychiatric: reports: No Symptoms Physical Exam Vital Signs: Vital Signs Temperature 98.5 F 04/15/20 07:02 Pulse Rate 84 04/15/20 07:02 Respiratory Rate 16 04/15/20 07:02 Blood Pressure 101/74 04/15/20 07:02 O2 Sat by Pulse Oximetry (%) 99 04/15/20 08:36 Constitutional: Yes: Calm Eyes: Yes: Sclera Icterus HENT: Yes: Atraumatic Neck: Yes: Supple Cardiovascular: Yes: S1, S2 Respiratory: Yes: CTA Bilaterally Gastrointestinal: Yes: Normal Bowel Sounds, Soft Renal/: Yes: WNL Musculoskeletal: Yes: WNL Edema: No Neurological: Yes: Oriented Psychiatric: Yes: Oriented Labs: CBC, BMP 04/15/20 06:30 04/15/20 06:30 Imaging - Results Cat Scan: Report Reviewed Problem List - Problems (1) Alcohol dependence with uncomplicated withdrawal Code(s): F10.230 - ALCOHOL DEPENDENCE WITH WITHDRAWAL, UNCOMPLICATED (2) Alcoholic hepatitis Code(s): K70.10 - ALCOHOLIC HEPATITIS WITHOUT ASCITES Qualifiers: Ascites presence: without ascites Qualified Code(s): K70.10 - Alcoholic hepatitis without ascites (3) Hypokalemia Code(s): E87.6 - HYPOKALEMIA (4) Hyponatremia Code(s): E87.1 - HYPO-OSMOLALITY AND HYPONATREMIA Assessment/Plan Current Medications Generic Name Dose Route Start Last Admin Trade Name Freq PRN Reason Stop Dose Admin Chlordiazepoxide HCl 10 mg 04/18/20 06:00 Librium - PO 04/18/20 18:01 Q12H MONTY Chlordiazepoxide HCl 50 mg 04/14/20 23:00 04/15/20 12:10 Librium - PO 04/15/20 22:59 50 mg Q6HPO MONTY Administration Chlordiazepoxide HCl 25 mg 04/16/20 05:00 Librium - PO 04/16/20 23:01 [id number] MONTY Chlordiazepoxide HCl 10 mg 04/17/20 00:00 Librium - PO 04/17/20 18:01 Q6HPO MONTY Chlordiazepoxide HCl 10 mg 04/19/20 06:00 Librium - PO 04/19/20 06:01 ONCE ONE Potassium Chloride 40 meq/ 1,020 mls @ 83 mls/hr 04/15/20 12:15 04/15/20 12:18 Dextrose IVPB 83 mls/hr Q12H MONTY Administration Morphine Sulfate 2 mg 04/14/20 18:39 Morphine Sulfate IVPUSH Q4H PRN PAIN LEVEL 7 - 10 Ondansetron HCl 4 mg 04/14/20 19:53 Zofran Injection IVPUSH Q6H PRN NAUSEA Thiamine HCl 100 mg 04/15/20 10:00 04/15/20 11:48 Vitamin B1 - PO 100 mg DAILY MONTY Administration Laboratory Tests 04/14/20 04/14/20 04/15/20 15:58 15:58 01:00 Sodium 120 L 135 L Potassium 2.1 L* 2.7 L* Creatinine 1.2 0.9 Phosphorus Magnesium Ur Specific [place] 1.014 Urine Protein 2+ H Alcohol, Quantitative 34.0 H COVID-19 (VAN) 04/15/20 04/15/20 01:30 06:30 Sodium 136 Potassium 3.3 L Creatinine 0.9 Phosphorus 2.0 L Magnesium 1.5 L Ur Specific [place] Urine Protein Alcohol, Quantitative COVID-19 (VAN) Pending Impression 1. hyponatremia 2. hypokalemia 3. etoh abuse 4. abd pain 5. liver cirrhosis Plan - change fluids to d5w with potassium, will need to slow the rate of sodium correction - pt would like detox after acute episode is resolved - pt on librium protocol - replace potassium - replace mag and phos
[2020-04-15] MEDS ORDERED: MAGNESIUM SULF 50% (8.12 MEQ/2 ML-1 GM VIAL) IVPB ONE (17:58)
[2020-04-15] MEDS ORDERED: SODIUM PHOSPHATE - 20 MM in SODIUM CHLORIDE 250 ML IVPB ONE (17:59)
[2020-04-15] MEDS ORDERED: MAGNESIUM SULFATE IN WATER 2 GM/50 ML IVPB IVPB ONE (18:16)
--- NOTE | 2020-04-15 18:30 | CONS ---
DATE OF CONSULTATION: DATE OF DICTATION: 04/15/2020 GASTROENTEROLOGY CONSULTATION HISTORY OF PRESENT ILLNESS: The patient is a 35-year-old male with a past medical history significant for alcohol abuse, cirrhosis, hypertension, hyperlipidemia, and depression, who was admitted to the hospital with complaints of epigastric and right upper quadrant abdominal pain for a couple of weeks. He has been using alcohol. He states yesterday he drank four 20-ounce bottles of beer, and he does drink frequently. He states he was also nauseous prior to coming to the hospital, but at this point he is feeling much better. He denies any vomiting, hematemesis, melena, hematochezia. As per our record, he has not had a recent endoscopy or colonoscopy. He was seen in consultation on his last admission by GI in February for similar symptoms; at the time, no endoscopic evaluation was recommended or done. PAST MEDICAL AND SURGICAL HISTORY: As listed in the HPI. ALLERGIES: No known drug allergies. SURGICAL HISTORY: None. SOCIAL HISTORY: He does not smoke but drinks approximately 4 to 6 beers daily. HOME MEDICATIONS: Reviewed. Multiple vitamin, folic acid, bupropion. REVIEW OF SYSTEMS: As per the HPI. Also with tremors and some chills as per history. PHYSICAL EXAMINATION: Vital Signs: Temperature 98, pulse 84, blood pressure 101/74, respiratory rate 16, oxygen saturation 99% on room air. General: In no acute distress. HEENT: Anicteric sclerae. Cardiovascular: S1, S2, regular rate and rhythm. Lungs: Bilaterally clear to auscultation. Abdomen: Soft, nontender. Extremities: No edema. Neurological: Intact, alert and oriented x3. He does have a tremor without asterixis on exam. LABORATORY: White blood cell count 7.7, hemoglobin and hematocrit 15/44, MCV 96, platelet count 80, INR 1.2. Sodium 136, potassium 3.3, BUN/creatinine 7.9 over 0.9, glucose 88, total bilirubin 9.8. AST 334, ALT 97, alkaline phosphatase 169, INR 1.29. Alcohol toxicology is positive. COVID-19 is pending. He had an abdominal CT scan done which revealed hepatomegaly and diffuse fatty infiltration of the liver without any acute pathology of the abdomen; this was a contrast study. He also had a chest x-ray which revealed no cardiopulmonary disease. IMPRESSION: 1. Abdominal pain and nausea most likely secondary to his underlying alcohol abuse, / portal hypertensive gastropathy. 2. Alcohol abuse. Alcohol related cirrhosis. RECOMMENDATION: Alcohol withdrawal protocol, would benefit from detox program. Monitor LFTs while hospitalized. Discriminant function is less than 32, therefore he is not a candidate for prednisolone therapy or Trental therapy. Avoid hepatotoxic medications. Monitor LFTs and INR daily while hospitalized. Antiemetics, PPI therapy, IV fluids should be continued, correct all electrolyte abnormalities. He would benefit from a diagnostic upper endoscopy; this can be done as an outpatient once the acute process has resolved. Will follow. DO JEROME PENNY/[id number] MTDD
[2020-04-15] MEDS ORDERED: chlordiazePOXIDE HCL 25 MG CAPSULE PO SCH ×2 (23:00)
[2020-04-16] MEDS: POTASSIUM CHLORIDE 40 MEQ in DEXTROSE 5%-WATER - 1,000 ML IVPB SCH ×4 (01:37→22:19)
[2020-04-16] MEDS: chlordiazePOXIDE HCL 25 MG CAPSULE PO SCH ×4 (05:39→22:18)
[2020-04-16] MEDS ORDERED: chlordiazePOXIDE HCL 25 MG CAPSULE PO SCH (06:00)
--- NOTE | 2020-04-16 08:26 | PN ---
Progress Note, Physician - Current Medication List Current Medications: Active Medications Chlordiazepoxide HCl (Librium -) 10 mg PO Q12H [facility] Stop: 04/18/20 18:01 Chlordiazepoxide HCl (Librium -) 25 mg PO [id number] [facility] Stop: 04/16/20 23:01 Last Admin: 04/16/20 05:39 Dose: 25 mg Documented by: Chlordiazepoxide HCl (Librium -) 10 mg PO Q6HPO [facility] Stop: 04/17/20 18:01 Chlordiazepoxide HCl (Librium -) 10 mg PO ONCE ONE Stop: 04/19/20 06:01 Potassium Chloride 40 meq/ (Dextrose) 1,020 mls @ 83 mls/hr IVPB Q12H [facility] Last Admin: 04/16/20 01:37 Dose: 83 mls/hr Documented by: Morphine Sulfate (Morphine Sulfate) 2 mg IVPUSH Q4H PRN PRN Reason: PAIN LEVEL 7 - 10 Ondansetron HCl (Zofran Injection) 4 mg IVPUSH Q6H PRN PRN Reason: NAUSEA Thiamine HCl (Vitamin B1 -) 100 mg PO DAILY [facility] Last Admin: 04/15/20 11:48 Dose: 100 mg Documented by: - Objective Vital Signs: Vital Signs Temperature 98.7 F 04/16/20 06:00 Pulse Rate 119 H 04/16/20 06:00 Respiratory Rate 16 04/16/20 06:00 Blood Pressure 136/78 04/16/20 06:00 O2 Sat by Pulse Oximetry (%) 99 04/16/20 06:00 Cardiovascular: Yes: Regular Rate and Rhythm Respiratory: Yes: Regular, CTA Bilaterally Gastrointestinal: Yes: Normal Bowel Sounds, Soft. No: Tenderness Labs: CBC, BMP 04/15/20 06:30 INR, PTT INR 1.29 (0.83-1.09) H 04/14/20 15:58 Problem List - Problems (1) Alcohol dependence with uncomplicated withdrawal Assessment/Plan: monitor for signs of DT's received librium 50mg once and banana bag c/w librium as per protocol with taper c/w thiamine consult case management in am as patient requesting alcohol detox upon discharge alcohol cessation discussed with patient and was strongly recommended. Code(s): F10.230 - ALCOHOL DEPENDENCE WITH WITHDRAWAL, UNCOMPLICATED (2) Alcoholic hepatitis Assessment/Plan: Monitor trends ct noted Laboratory Tests 04/14/20 15:58 Total Bilirubin 9.8 H AST 334 H ALT 97 H Alkaline Phosphatase 169 H GI on board Code(s): K70.10 - ALCOHOLIC HEPATITIS WITHOUT ASCITES Qualifiers: Ascites presence: without ascites Qualified Code(s): K70.10 - Alcoholic hepatitis without ascites (3) Abdominal pain Assessment/Plan: Resolved abdominal US with no acute findings check CT scan of abdomen noted GI consulted- avoid tylenol and statin therapy in this setting thrombocytopenia, avoid asa Code(s): R10.9 - UNSPECIFIED ABDOMINAL PAIN Qualifiers: Abdominal location: unspecified location Qualified Code(s): R10.9 - Unspecified abdominal pain (4) Hypokalemia Assessment/Plan: potassium 2.1 repleted repeat BMP at 1am monitor on telemetry for ventricular ectopy Laboratory Tests 04/14/20 04/15/20 04/15/20 15:58 01:00 06:30 Sodium 120 L 135 L 136 Potassium 2.1 L* 2.7 L* 3.3 L Code(s): E87.6 - HYPOKALEMIA (5) Hyponatremia Assessment/Plan: sodium 120, received IV NS and LR c/w LR @ 75 cc/hr repeat BMP Laboratory Tests 04/14/20 04/15/20 04/15/20 15:58 01:00 06:30 Sodium 120 L 135 L 136 Potassium 2.1 L* 2.7 L* 3.3 L Code(s): E87.1 - HYPO-OSMOLALITY AND HYPONATREMIA (6) UTI (urinary tract infection) Assessment/Plan: UA positive for nitrite and 2+ leukoesterase, low WBC no leukocytosis, currently afebrile pending urine culture will order dose of IV Ceftriaxone and will await for urine culture results Code(s): N39.0 - URINARY TRACT INFECTION, SITE NOT SPECIFIED
[2020-04-16 08:43] LABS: ALBUMIN 3.2 g/dl (3.4-5.0); BLOOD UREA NITROGEN 6.7 mg/dL (7-18); CALCIUM 8.8 mg/dL (8.5-10.1); CREATININE 0.7 mg/dL (0.55-1.3); MAGNESIUM 2.1 mg/dL (1.8-2.4); PHOSPHOROUS 2.4 mg/dL (2.5-4.9); POTASSIUM 3.2 mmol/L (3.5-5.1)
--- NOTE | 2020-04-16 11:30 | CONSULT ---
Consult Detox [facility] Reason for Current Admission/Consult: Alcohol Dependence Referred by:: Nirav Blankenship - History History of Present Illness: 35 year old male with history of alcohol dependence with prior history of detox at [facility] in 2017. PMH of alcoholic cirrhosis, alcohol abuse, gastritis, HTN, HLD, and depression who presented on 04/14/20 with both RUQ and generalized abdominal pain, alcohol withdrawal symptoms, and a desire to go for alcohol detox. Generalized Abd Pain: Pt reports having 8-10/10 generalized burning abdominal pain with associated nausea and vomiting for 2 weeks Patient reports 5-6 episodes of nb nb emesis daily for this duration (already with 4 episodes of vomiting today). Pt has also not had any food for the past 2 weeks with only intermittent toleration of liquids (water, gatorade, or wine coolers -9% alcohol). He also has not had a BM over the same duration. Pt denies increased urinary frequency or dysuria. Alcohol Withdrawal Symptoms: Pt reports n/v hx as above, mild tremors, mild diaphoresis, mild-moderate anxiety, mild agitation above baseline, numbness and tingling in b/l finger tips and b/l LE below the knees x several weeks, and insomnia x several weeks. Scleral icterus x 1 month. Last drink was a 24 oz wine cooler at 1:30 pm. Pt would like to be sent for alcohol detox after treatment of his symptoms. Psych: Depression on Wellbutrin which he stopped 1 month ago when he started drinking heavily once again. - History Source History Provided By: Patient, Medical Record Limitations to Obtaining History: No Limitations - Alcohol/Substance Use Hx Alcohol Use: Yes (1/2 pint hard liquor) Hx Substance Use: No Hx Substance Use Treatment: Yes (2017 detox) - Current Drug/Alcohol Use Alcohol Route: Oral Amount used: 1 pint hard liquor Age of first use: 17 Date of Last Use: 04/14/20 - Past Medical History Cardio/Vascular: Yes: HTN, Hyperlipdemia Gastrointestinal: Yes: Gastritis Psych: Yes: Addictions (Alcohol abuse with past detox) - Past Surgical History Past Surgical History: Yes: None - Significant Medical Findings: As per resident: Temperature 98.7 F 04/16/20 06:00 Pulse Rate 119 H 04/16/20 06:00 Respiratory Rate 16 04/16/20 06:00 Blood Pressure 136/78 09/10/20 06:00 O2 Sat by Pulse Oximetry (%) 99 04/16/20 06:00 Cardiovascular: Yes: Regular Rate and Rhythm Respiratory: Yes: Regular, CTA Bilaterally Gastrointestinal: Yes: Normal Bowel Sounds, Soft. No: Tenderness Labs: CBC, BMP 04/15/20 06:30 INR, PTT INR 1.29 (0.83-1.09) H 04/14/20 15:58 CIWA Score - CIWA Score Nausea/Vomitin Muscle Tremors: 3 Anxiety: 2 Agitation: 3 Paroxysmal Sweats: 2 Orientation: 0-Oriented Tacttile Disturbances: 0-None Auditory Disturbances: 0-None Visual Disturbances: 0-None Headache: 1-Very Mild CIWA-Ar Total Score: 13 Assessment Plan - Plan Plan: Alcohol Dependence: Patient is know to [facility] and did complete detox in 2106 and did have some time of abstinence. Agree with current detox protocol as ordered. Patient when medically stable can continue detox at [facility]. If he completes detox at [facility], and he wishes to do rehab, he can be transferred for rehab. Dr. Laura - Medication Detox Regimen/Protocol: Martínez
[2020-04-16] MEDS: THIAMINE HCL 100 MG TABLET (FP) PO SCH (11:32)
[2020-04-16] MEDS ORDERED: NAPH,MB-DB/K PH,MBDB POWDER PACKET PO ONE (12:22)
[2020-04-16] MEDS ORDERED: POTASSIUM CHLORIDE ORAL LIQUID 20 MEQ/15 ML PO ONE (12:22)
--- NOTE | 2020-04-16 12:24 | PN ---
Progress Note, Physician History of Present Illness: Pt seen and examined at bedside. He is awake and appears comfortable. - Current Medication List Current Medications: Active Medications Chlordiazepoxide HCl (Librium -) 10 mg PO Q12H [facility] Stop: 04/18/20 18:01 Chlordiazepoxide HCl (Librium -) 25 mg PO [id number] [facility] Stop: 04/16/20 23:01 Last Admin: 04/16/20 11:32 Dose: 25 mg Documented by: Chlordiazepoxide HCl (Librium -) 10 mg PO Q6HPO [facility] Stop: 04/17/20 18:01 Chlordiazepoxide HCl (Librium -) 10 mg PO ONCE ONE Stop: 04/19/20 06:01 Potassium Chloride 40 meq/ (Dextrose) 1,020 mls @ 83 mls/hr IVPB Q12H [facility] Last Admin: 04/16/20 11:32 Dose: Not Given Documented by: Morphine Sulfate (Morphine Sulfate) 2 mg IVPUSH Q4H PRN PRN Reason: PAIN LEVEL 7 - 10 Ondansetron HCl (Zofran Injection) 4 mg IVPUSH Q6H PRN PRN Reason: NAUSEA Potassium Chloride (Potassium Chloride Oral Liquid) 40 meq PO ONCE ONE Stop: 04/16/20 12:23 Potassium Phos/Sodium Phos (Phos-Nak Packet -) 2 packet PO ONCE ONE Stop: 04/16/20 12:23 Thiamine HCl (Vitamin B1 -) 100 mg PO DAILY [facility] Last Admin: 04/16/20 11:32 Dose: 100 mg Documented by: - Objective Vital Signs: Vital Signs Temperature 98.7 F 04/16/20 06:00 Pulse Rate 119 H 04/16/20 06:00 Respiratory Rate 16 04/16/20 06:00 Blood Pressure 136/78 04/16/20 06:00 O2 Sat by Pulse Oximetry (%) 99 04/16/20 06:00 Constitutional: Yes: Calm HENT: Yes: Atraumatic Neck: Yes: Supple Cardiovascular: Yes: S1, S2 Respiratory: Yes: CTA Bilaterally Gastrointestinal: Yes: Normal Bowel Sounds, Soft Genitourinary: Yes: WNL Musculoskeletal: Yes: WNL Edema: No Neurological: Yes: Oriented Psychiatric: Yes: Oriented Labs: CBC, BMP 04/15/20 06:30 04/16/20 07:15 INR, PTT INR 1.29 (0.83-1.09) H 04/14/20 15:58 Problem List - Problems (1) Alcohol dependence with uncomplicated withdrawal Code(s): F10.230 - ALCOHOL DEPENDENCE WITH WITHDRAWAL, UNCOMPLICATED (2) Alcoholic hepatitis Code(s): K70.10 - ALCOHOLIC HEPATITIS WITHOUT ASCITES Qualifiers: Ascites presence: without ascites Qualified Code(s): K70.10 - Alcoholic hep atitis without ascites (3) Hypokalemia Code(s): E87.6 - HYPOKALEMIA (4) Hyponatremia Code(s): E87.1 - HYPO-OSMOLALITY AND HYPONATREMIA Assessment/Plan Current Medications Generic Name Dose Route Start Last Admin Trade Name Freq PRN Reason Stop Dose Admin Chlordiazepoxide HCl 10 mg 04/18/20 06:00 Librium - PO 04/18/20 18:01 Q12H MONTY Chlordiazepoxide HCl 25 mg 04/16/20 05:00 04/16/20 11:32 Librium - PO 04/16/20 23:01 25 mg [id number] MONTY Administration Chlordiazepoxide HCl 10 mg 04/17/20 00:00 Librium - PO 04/17/20 18:01 Q6HPO MONTY Chlordiazepoxide HCl 10 mg 04/19/20 06:00 Librium - PO 04/19/20 06:01 ONCE ONE Potassium Chloride 40 meq/ 1,020 mls @ 83 mls/hr 04/15/20 12:15 04/16/20 11:32 Dextrose IVPB Not Given Q12H MONTY Morphine Sulfate 2 mg 04/14/20 18:39 Morphine Sulfate IVPUSH Q4H PRN PAIN LEVEL 7 - 10 Ondansetron HCl 4 mg 04/14/20 19:53 Zofran Injection IVPUSH Q6H PRN NAUSEA Potassium Chloride 40 meq 04/16/20 12:22 Potassium Chloride Oral Liquid PO 04/16/20 12:23 ONCE ONE Potassium Phos/Sodium Phos 2 packet 04/16/20 12:22 Phos-Nak Packet - PO 04/16/20 12:23 ONCE ONE Thiamine HCl 100 mg 04/15/20 10:00 04/16/20 11:32 Vitamin B1 - PO 100 mg DAILY MONTY Administration Impression 1. hyponatremia 2. hypokalemia 3. etoh abuse 4. abd pain 5. liver cirrhosis Plan - replace potassium - replace phos - pt now on clears - will decrease rate of fluids - pt on d5w to decrease rate of correction of sodium - repeat labs in am
[2020-04-16 16:09] VITALS: BMI 23.7
--- NOTE | 2020-04-16 18:13 | PN.GI ---
GI Progress Note Subjective: Found walking around the floor Denies focal complaints - Objective Vital Signs: Vital Signs Temperature 98.4 F 04/16/20 14:00 Pulse Rate 92 H 04/16/20 14:00 Respiratory Rate 16 04/16/20 14:00 Blood Pressure 121/78 04/16/20 14:00 O2 Sat by Pulse Oximetry (%) 98 04/16/20 14:00 Constitutional: Calm Eyes: Yes: Sclera Icterus Cardiovascular: Yes: Regular Rate and Rhythm Respiratory: Yes: CTA Bilaterally Gastrointestinal Inspection: No: Distention ...Auscultate: Yes: Normoactive Bowel Sounds ...Palpate: Yes: Hepatomegaly, Soft. No: Splenomegaly, Tenderness Edema: No (No LE edema) Neurological: Yes: Alert. No: Asterixis Labs: CBC, BMP 04/15/20 06:30 04/16/20 07:15 INR, PTT INR 1.29 (0.83-1.09) H 04/14/20 15:58 Hepatic Panel Total Bilirubin 10.0 mg/dL (0.2-1) H 04/16/20 07:15 AST 274 U/L (15-37) H 04/16/20 07:15 ALT 101 U/L (13-61) H 04/16/20 07:15 Alkaline Phosphatase 163 U/L (45-117) H 04/16/20 07:15 Albumin 3.2 g/dl (3.4-5.0) L 04/16/20 07:15 Problem List - Problems (1) Alcoholic hepatitis Assessment/Plan: Clinically well Ordered AM labs including PT/INR, will recalculate hepatitis discriminant function based on these Advised need for complete alcohol cessation Code(s): K70.10 - ALCOHOLIC HEPATITIS WITHOUT ASCITES Qualifiers: Ascites presence: without ascites Qualified Code(s): K70.10 - Alcoholic hepatitis without ascites
[2020-04-17] MEDS ORDERED: chlordiazePOXIDE 5 MG CAPSULE ONE (04:40)
[2020-04-17] MEDS: chlordiazePOXIDE HCL 10 MG CAPSULE PO SCH ×2 (04:44→11:57)
[2020-04-17] MEDS ORDERED: chlordiazePOXIDE HCL 10 MG CAPSULE PO SCH (06:00)
[2020-04-17 08:02] LABS: INR 1.37 (0.83-1.09); PROTHROMBIN TIME (PATIENT) 16.2 SEC (9.7-13.0)
[2020-04-17 08:21] LABS: ALBUMIN 2.8 g/dl (3.4-5.0); BLOOD UREA NITROGEN 4.4 mg/dL (7-18); CALCIUM 8.8 mg/dL (8.5-10.1); CREATININE 0.7 mg/dL (0.55-1.3); MAGNESIUM 1.7 mg/dL (1.8-2.4); PHOSPHOROUS 2.1 mg/dL (2.5-4.9); POTASSIUM 3.8 mmol/L (3.5-5.1); TOT PROT 6.5 g/dl (6.4-8.2)
--- NOTE | 2020-04-17 08:48 | PN ---
Progress Note, Physician - Current Medication List Current Medications: Active Medications Chlordiazepoxide HCl (Librium -) 10 mg PO Q12H [facility] Stop: 04/18/20 18:01 Chlordiazepoxide HCl (Librium -) 10 mg PO [id number] [facility] Stop: 04/17/20 23:01 Last Admin: 04/17/20 04:44 Dose: 10 mg Documented by: Chlordiazepoxide HCl (Librium -) 10 mg PO ONCE ONE Stop: 04/19/20 06:01 Potassium Chloride 40 meq/ (Dextrose) 1,020 mls @ 50 mls/hr IVPB Q20H [facility] Last Admin: 04/16/20 22:19 Dose: 50 mls/hr Documented by: Morphine Sulfate (Morphine Sulfate) 2 mg IVPUSH Q4H PRN PRN Reason: PAIN LEVEL 7 - 10 Ondansetron HCl (Zofran Injection) 4 mg IVPUSH Q6H PRN PRN Reason: NAUSEA Thiamine HCl (Vitamin B1 -) 100 mg PO DAILY [facility] Last Admin: 04/16/20 11:32 Dose: 100 mg Documented by: - Objective Vital Signs: Vital Signs Temperature 98.6 F 04/17/20 06:00 Pulse Rate 76 04/17/20 06:00 Respiratory Rate 18 04/17/20 06:00 Blood Pressure 108/67 04/17/20 06:00 O2 Sat by Pulse Oximetry (%) 98 04/17/20 06:00 Labs: CBC, BMP 04/15/20 06:30 04/17/20 07:03 INR, PTT INR 1.37 (0.83-1.09) H 04/17/20 07:03 Problem List - Problems (1) Alcohol dependence with uncomplicated withdrawal Code(s): F10.230 - ALCOHOL DEPENDENCE WITH WITHDRAWAL, UNCOMPLICATED (2) Alcoholic hepatitis Code(s): K70.10 - ALCOHOLIC HEPATITIS WITHOUT ASCITES Qualifiers: Ascites presence: without ascites Qualified Code(s): K70.10 - Alcoholic hepatitis without ascites (3) Abdominal pain Code(s): R10.9 - UNSPECIFIED ABDOMINAL PAIN Qualifiers: Abdominal location: unspecified location Qualified Code(s): R10.9 - Unspecified abdominal pain (4) Hypokalemia Code(s): E87.6 - HYPOKALEMIA (5) Hyponatremia Code(s): E87.1 - HYPO-OSMOLALITY AND HYPONATREMIA (6) UTI (urinary tract infection) Code(s): N39.0 - URINARY TRACT INFECTION, SITE NOT SPECIFIED
[2020-04-17] MEDS: POTASSIUM CHLORIDE 40 MEQ in DEXTROSE 5%-WATER - 1,000 ML IVPB SCH (09:16)
[2020-04-17] MEDS: THIAMINE HCL 100 MG TABLET (FP) PO SCH (11:57)
--- NOTE | 2020-04-17 12:19 | DS ---
Physical Examination Vital Signs: Vital Signs Temperature 98.3 F 04/17/20 09:31 Pulse Rate 81 04/17/20 09:31 Respiratory Rate 20 04/17/20 09:31 Blood Pressure 114/74 04/17/20 09:31 O2 Sat by Pulse Oximetry (%) 98 04/17/20 09:31 Labs: CBC, BMP 04/15/20 06:30 04/17/20 07:03 Discharge Summary Problems reviewed: Yes Reason For Visit: HYPONATREMIA HYPOKALEMIA Current Active Problems Alcohol dependence with uncomplicated withdrawal (Acute) Alcoholic hepatitis (Acute) Dehydration (Acute) Hypokalemia (Acute) Hyponatremia (Acute) UTI (urinary tract infection) (Acute) Hospital Course: SEE PROGRESS NOTE DISCUSSED WITH GI Condition: Stable - Instructions Diet, Activity, Other Instructions: FOLLOW UP CMP ON MONDAY GI FOLLOW UP OUTPATIENT Referrals: Ela Triana MD [Primary Care Provider] - Disposition: I.P. ALCOHOL/SUBS ABUSE REHAB - Home Medications Comprehensive Discharge Medication List: Ambulatory Orders Bupropion HCl [Bupropion Xl] 150 mg PO DAILY #30 tab.er.24h 02/18/20 Folic Acid - 1 mg PO DAILY #30 tablet 02/18/20 Multivitamins [Multivit ([facility] Formulary)] 1 tab PO DAILY #30 tab 02/18/20 Chlordiazepoxide [Librium -] 10 mg PO Q12H capsule 04/17/20 Chlordiazepoxide [Librium -] 10 mg PO [id number] capsule 04/17/20 Chlordiazepoxide [Librium -] 10 mg PO Q6HPO capsule 04/17/20 Chlordiazepoxide [Librium -] 25 mg PO [id number] capsule 04/17/20 Chlordiazepoxide [Librium -] 25 mg PO [id number] capsule 04/17/20 Chlordiazepoxide [Librium -] 25 mg PO [id number] #0 capsule 04/17/20 Chlordiazepoxide [Librium -] 50 mg PO Q6HPO capsule 04/17/20 Chlordiazepoxide [Librium -] 50 mg PO Q6HPO capsule 04/17/20 Thiamine HCl [Vitamin B1 -] 100 mg PO DAILY tablet 04/17/20
[2020-04-17] MEDS ORDERED: NAPH,MB-DB/K PH,MBDB POWDER PACKET PO ONE (13:19)
[2020-04-17] MEDS ORDERED: MAGNESIUM OXIDE 400 MG TABLET (FP) PO ONE (13:19)
--- NOTE | 2020-04-17 13:19 | PN ---
Progress Note, Physician History of Present Illness: Pt seen and examined at bedside. He is awake and alert. - Current Medication List Current Medications: Active Medications Chlordiazepoxide HCl (Librium -) 10 mg PO Q12H MONTY Stop: 04/18/20 18:01 Chlordiazepoxide HCl (Librium -) 10 mg PO [id number] MONTY Stop: 04/17/20 23:01 Last Admin: 04/17/20 11:57 Dose: 10 mg Documented by: Chlordiazepoxide HCl (Librium -) 10 mg PO ONCE ONE Stop: 04/19/20 06:01 Thiamine HCl (Vitamin B1 -) 100 mg PO DAILY [facility] Last Admin: 04/17/20 11:57 Dose: 100 mg Documented by: - Objective Vital Signs: Vital Signs Temperature 98.3 F 04/17/20 09:31 Pulse Rate 81 04/17/20 09:31 Respiratory Rate 20 04/17/20 09:31 Blood Pressure 114/74 04/17/20 09:31 O2 Sat by Pulse Oximetry (%) 98 04/17/20 09:31 Constitutional: Yes: Calm Eyes: Yes: Sclera Icterus HENT: Yes: Atraumatic Neck: Yes: Supple Cardiovascular: Yes: S1, S2 Respiratory: Yes: CTA Bilaterally Gastrointestinal: Yes: Soft Genitourinary: Yes: WNL Musculoskeletal: Yes: WNL Edema: No Neurological: Yes: Oriented Psychiatric: Yes: Oriented Labs: CBC, BMP 04/15/20 06:30 04/17/20 07:03 INR, PTT INR 1.37 (0.83-1.09) H 04/17/20 07:03 Problem List - Problems (1) Alcohol dependence with uncomplicated withdrawal Code(s): F10.230 - ALCOHOL DEPENDENCE WITH WITHDRAWAL, UNCOMPLICATED (2) Alcoholic hepatitis Code(s): K70.10 - ALCOHOLIC HEPATITIS WITHOUT ASCITES Qualifiers: Ascites presence: without ascites Qualified Code(s): K70.10 - Alcoholic hepatitis without ascites (3) Hypokalemia Code(s): E87.6 - HYPOKALEMIA (4) Hyponatremia Code(s): E87.1 - HYPO-OSMOLALITY AND HYPONATREMIA Assessment/Plan Current Medications Generic Name Dose Route Start Last Admin Trade Name Freq PRN Reason Stop Dose Admin Chlordiazepoxide HCl 10 mg 04/18/20 06:00 Librium - PO 04/18/20 18:01 Q12H MONTY Chlordiazepoxide HCl 10 mg 04/17/20 05:00 04/17/20 11:57 Librium - PO 04/17/20 23:01 10 mg [id number] MONTY Administration Chlordiazepoxide HCl 10 mg 04/19/20 06:00 Librium - PO 04/19/20 06:01 ONCE ONE Thiamine HCl 100 mg 04/15/20 10:00 04/17/20 11:57 Vitamin B1 - PO 100 mg DAILY MONTY Administration Impression 1. hyponatremia 2. hypokalemia 3. etoh abuse 4. abd pain 5. liver cirrhosis Plan - sodium stable - can d/c fluids - cont detox protocol - will follow prn
[2020-04-17 15:22] VITALS: BP 130/79; PULSE 96; TEMP 97.9
[2020-04-18] MEDS ORDERED: chlordiazePOXIDE HCL 10 MG CAPSULE PO SCH (06:00)
[2020-04-18 13:07] LABS: HEP B CORE AB, TOT Negative (Negative)
[2020-04-19] MEDS ORDERED: chlordiazePOXIDE HCL 10 MG CAPSULE PO ONE ×2 (06:00)
== END 2020-04-17 16:26 | disposition other institution (70) | DRG 280 ==
LOC: JER 13:58 → JERBED 18:30 → J5S 04-16 03:12
PROVIDERS: ADMIT Hospitalist; ATTEND Family Medicine
PROC: HZ2ZZZZ Detoxification Services for Substance Abuse Treatment (ICD-10-PCS; principal; 2020-04-14)
DX: K70.10 Alcoholic hepatitis without ascites (principal); I10 Essential (primary) hypertension; E78.5 Hyperlipidemia, unspecified; R11.2 Nausea with vomiting, unspecified; E87.6 Hypokalemia; F10.239 Alcohol dependence with withdrawal, unspecified; K29.20 Alcoholic gastritis without bleeding; K70.30 Alcoholic cirrhosis of liver without ascites; E87.1 Hypo-osmolality and hyponatremia; D69.6 Thrombocytopenia, unspecified; R74.0 Nonspecific elevation of levels of transaminase and lactic acid dehydrogenase [LDH]; R10.11 Right upper quadrant pain; F41.8 Other specified anxiety disorders; K70.0 Alcoholic fatty liver; N39.0 Urinary tract infection, site not specified; R16.0 Hepatomegaly, not elsewhere classified; E86.0 Dehydration
CPT/HCPCS: 36415; 71045-TC-FY; 74160-TC; 76705-TC; 80048; 80053; 80307; 81003; 83516; 83690; 83735; 84100; 85025; 85027; 85610; 85730; 86038; 86704; 86705; 86706; 86707; 86708; 86803; 87086; 99285-25; Q9967; U0003

== ENCOUNTER 2020-04-17 17:04 | Inpatient (IN) | payer OTHER ==
[2020-04-17 17:27] VITALS: BMI 25.0
--- NOTE | 2020-04-17 18:13 | HP ---
CIWA Score Nausea/Vomitin-No Nausea/No Vomiting Muscle Tremors: None Anxiety: 1-Mildly Anxious Agitation: 0-Normal Activity Paroxysmal Sweats: No Perspiration Orientation: 1-Uncertain about Date Tacttile Disturbances: 0-None Auditory Disturbances: 0-None Visual Disturbances: 0-None Headache: 0-None Present CIWA-Ar Total Score: 2 - Admission Criteria OASAS Guidelines: Admission for Medically Managed Detox: Requires at least one of the followin. CIWA greater than 12 2. Seizures within the past 24 hours 3. Delirium tremens within the past 24 hours 4. Hallucinations within the past 24 hours 5. Acute intervention needed for co occurring medical disorder 6. Acute intervention needed for co occurring psychiatric disorder 7. Severe withdrawal that cannot be handled at a lower level of care (continued vomiting, continued diarrhea, abnormal vital signs) requiring intravenous medication and/or fluids 8. Patient presents the following: Acute intervention needed for co-occurring med or psych disorder (Patient is a transfer from an inpatient unit where treated for abnormal LFT's, alcohol withdrawal and hypokalemia. Started on detox in- patient and then transferred to [facility] to complete detox.) Admission Criteria Met: Admission criteria met Admitting History and Physical - Past Medical History Cardiovascular: Yes: HTN, Hyperlipdemia Gastrointestinal: Yes: Gastritis Psych: Yes: Addictions (Alcohol abuse with past detox) - Past Surgical History Past Surgical History: Yes: None - Smoking History Smoking history: Never smoked Have you smoked in the past 12 months: No Aproximately how many cigarettes per day: 3 If you are a former smoker, when did you quit?: 2016 - Alcohol/Substance Use Hx Alcohol Use: Yes (1/2 pint hard liquor) Admission [facility] - HPI Chief Complaint: Here to stop drinking and get clean. Allergies/Adverse Reactions: Allergies Allergy/AdvReac Type Severity Reaction Status Date / Time No Known Allergies Allergy Verified 04/17/20 19:05 History of Present Illness: 35 yo transferred from [facility] in patient for completion of detox after being treated for Discharge Summary from [facility]: Reason For Visit: HYPONATREMIA HYPOKALEMIA Current Active Problems Alcohol dependence with uncomplicated withdrawal (Acute) Alcoholic hepatitis (Acute) Dehydration (Acute) Hypokalemia (Acute) Hyponatremia (Acute) UTI (urinary tract infection) (Acute) Instructions FOLLOW UP CMP ON MONDAY GI FOLLOW UP OUTPATIENT HPI Pt is a 35 yo M with PMH of alcoholic cirrhosis, alcohol abuse, gastritis, HTN, HLD, and depression. Current: ZEHRA: 0.0 UTox: + BZO Alcohol: Drinks 42 oz of beer daily + many wine coolers (24 oz, 9% alcohol; amount varies); sometimes drinks a pint of liquor daily Rec drugs: denies LABS FROM [facility]. COVID: 04/15/20=NEG. Hepatitis tests pending PLAN: WILL D/C LIBRIUM DETOX, ENLIGHT OF LIVER DISORDER AND SWITCH TO ATIVAN DETOX. CMP FOR MONDAY Exam Limitations: No Limitations - Ebola screening Have you traveled outside of the country in the last 21 days: No Have you had contact with anyone from an Ebola affected area: No Have you been sick,other than usual withdrawal symptoms: No Do you have a fever: No - Review of Systems Constitutional: No Symptoms Reported EENT: reports: No Symptoms Reported Respiratory: reports: No Symptoms reported Cardiac: reports: No Symptoms Reported GI: reports: No Symptoms Reported : reports: No Symptoms Reported Musculoskeletal: reports: No Symptoms Reported Integumentary: reports: No Symptoms Reported Neuro: reports: No Symptoms reported Endocrine: reports: No Symptoms Reported Hematology: reports: No Symptoms Reported Psychiatric: reports: Orientated x3, Anxious Patient History - Patient Medical History Hx Anemia: No Hx Asthma: No Hx Chronic Obstructive Pulmonary Disease (COPD): No Hx Cancer: No Hx Cardiac Disorders: No Hx Congestive Heart Failure: No Hx Hypertension: Yes Hx Hypercholesterolemia: Yes Hx Pacemaker: No HX Cerebrovascular Accident: No Hx Seizures: No Hx Dementia: No Hx Diabetes: No Hx Gastrointestinal Disorders: (gastritis) Hx Liver Disease: (liver cirrhosis) Hx Genitourinary Disorders: No (CHRISSOS LIVER) Hx Sexually Transmitted Disorders: No Hx Renal Disease (ESRD): No Hx Thyroid Disease: No Hx Human Immunodeficiency Virus (HIV): No Hx Hepatitis C: No Hx Depression: No Hx Suicide Attempt: No Hx Bipolar Disorder: No Hx Schizophrenia: No - Patient Surgical History Past Surgical History: Yes Hx Neurologic Surgery: No Hx Cataract Extraction: No Hx Cardiac Surgery: No Hx Lung Surgery: No Hx Breast Surgery: No Hx Breast Biopsy: No Hx Abdominal Surgery: No Hx Appendectomy: Yes (at age 25) Hx Cholecystectomy: No Hx Genitourinary Surgery: No Hx Section: No Hx Orthopedic Surgery: No Hx Hysterectomy: No (N/A) Anesthesia Reaction: No - PPD History Previous Implant?: Yes Documented Results: Negative w/proof Implanted On Prior [facility] Admission?: Yes Date: 09/30/16 Results: 0 mm PPD to be Administered?: Yes - Smoking Cessation Smoking history: Never smoked Have you smoked in the past 12 months: No Aproximately how many cigarettes per day: 0 Cigars Per Day: 0 Hx Chewing Tobacco Use: No Initiated information on smoking cessation: No - Substance & Tx. History Hx Alcohol Use: Yes Hx Substance Use: Yes Substance Use Type: Alcohol Hx Substance Use Treatment: Yes (detox) - Substances abused Alcohol Substance route: Oral Frequency: Daily Amount used: 4 beers/ 24 ounces of beers. Age of first use: 11 Date of last use: 04/13/20 Admission Physical Exam [facility] - Vital Signs Vital Signs: Vital Signs - 24 hr 04/17/20 17:25 Temperature 97.7 F Pulse Rate 87 Respiratory 19 Rate Blood Pressure 127/90 - Physical General Appearance: Yes: Nourished HEENTM: Yes: Hearing grossly Normal, GARRY, Scleral Ictenus R (Yellow sclera), Scleral Ictenus L (Yellow sclera), Other (Buccal cavity w/ yellowish mucosa) Respiratory: Yes: Lungs Clear, Normal Breath Sounds, No Respiratory Distress Neck: Yes: No masses,lesions,Nodules, Supple Breast: Yes: Breast Exam Deferred Cardiology: Yes: Regular Rhythm, Regular Rate, S1, S2 Abdominal: Yes: Normal Bowel Sounds, Non Tender, Flat, Soft Genitourinary: Yes: Within Normal Limits Back: Yes: Within Normal Limits Musculoskeletal: Yes: full range of Motion, Gait Steady Extremities: Yes: Normal Capillary Refill Neurological: Yes: Fully Oriented, Alert, Motor Strength 5/5 Integumentary: Yes: Jaundice Lymphatic: Yes: Within Normal Limits - Diagnostic (1) Jaundice Current Visit: Yes Status: Chronic (2) Alcohol dependence with uncomplicated withdrawal Current Visit: Yes Status: Acute (3) Hyperbilirubinemia Current Visit: Yes Status: Chronic (4) Abnormal liver function tests Current Visit: Yes Status: Chronic (5) Alcoholic hepatitis Current Visit: Yes Status: Chronic Qualifiers: Ascites presence: without ascites Qualified Code(s): K70.10 - Alcoholic hepatitis without ascites (6) Hypertension Current Visit: Yes Status: Chronic Qualifiers: Hypertension type: essential hypertension Qualified Code(s): I10 - Essential (primary) hypertension Cleared for Admission [facility] - Detox or Rehab [facility] Level of Care: Medically Managed Detox Regimen/Protocol: Ativan Claeared for Rehab Admission: No Breathalyzer - Breathalyzer Breathalyzer: 0 Urine Drug Screen - Test Device Lot number: [id number] Expiration date: 03/10/22 - Control Is test valid?: Yes - Results Drug screen NEGATIVE: No Urine drug screen results: BZO-Benzodiazepines Inpatient Rehab Admission - Rehab Decision to Admit Inpatient rehab admission?: No
[2020-04-17] MEDS ORDERED: ONDANSETRON *ODT* 4 MG TABLET SL PRN (18:40)
[2020-04-17] MEDS ORDERED: ACETAMINOPHEN 325 MG TABLET (FP) PO PRN ×2 (18:40)
[2020-04-17] MEDS ORDERED: MAG HYDROX/AL HYDROX/SIMETH 30 ML UNIT-DOSE CUP PO PRN (18:40)
[2020-04-17] MEDS ORDERED: IBUPROFEN 400 MG TABLET (FP) PO PRN (18:40)
[2020-04-17] MEDS ORDERED: MAGNESIUM HYDROX 2400MG/30ML ORAL SUSPENSION 30 ML CUP PO PRN (18:40)
[2020-04-17] MEDS ORDERED: METHOCARBAMOL 500 MG TABLET PO PRN (18:40)
[2020-04-17] MEDS ORDERED: MAGNESIUM CITRATE 300 ML BOTTLE PO PRN (18:40)
[2020-04-17] MEDS ORDERED: BISMUTH SUBSALICYLATE 524 MG/30 ML UD PO PRN (18:40)
[2020-04-17] MEDS ORDERED: MENTHOL/PHENOL 1 EACH UD MM PRN (18:40)
[2020-04-17] MEDS ORDERED: chlordiazePOXIDE HCL 10 MG CAPSULE PO SCH (18:51)
[2020-04-17] MEDS ORDERED: chlordiazePOXIDE 5 MG CAPSULE PO PRN (18:56)
[2020-04-17] MEDS ORDERED: LORazepam 0.5 MG TABLET PO PRN (20:05)
[2020-04-17] MEDS ORDERED: LORazepam 2 MG TABLET PO ONE (20:11)
[2020-04-17] MEDS: MELATONIN 5 MG TABLETS PO SCH (22:52)
[2020-04-17] MEDS: THIAMINE HCL 100 MG TABLET (FP) PO SCH (22:52)
[2020-04-17] MEDS: LORazepam 1 MG TABLET PO SCH (22:52)
[2020-04-18] MEDS: LORazepam 1 MG TABLET PO SCH ×3 (05:39→17:57)
[2020-04-18] MEDS: PANTOPRAZOLE 40 MG TABLET PO SCH (11:12)
[2020-04-18] MEDS: PRENATAL VITAMINS W/ FOLIC ACID TABLET (FP) PO SCH (11:12)
--- NOTE | 2020-04-18 13:35 | CONSULT ---
[facility] Psychiatric Consult - Data Date of interview: 04/18/20 Admission source: [facility] Identifying data: Revisit to [facility] and admission to [address] [place] [address] for this 35 y/o male, a referral from the [facility] (evaluated for abnormal liver enzymes) for detoxification treatment. MOE issue : alcohol. Patient is single (common-law relationship), no children, domiciled and currently employed. Substance Abuse History: Smoking history: Never smoked. Have you smoked in the past 12 months: No. Aproximately how many cigarettes per day: 0. Cigars Per Day: 0. Hx Chewing Tobacco Use: No. Initiated information on smoking cessation: No. - Substance & Tx. History. Hx Alcohol Use: Yes. Hx Substance Use: Yes. Substance Use Type: Alcohol. Hx Substance Use Treatment: Yes (detox). - Substances abused. Alcohol. Substance route: Oral. Frequency: Daily. Amount used: 4 beers/ 24 ounces of beers. Age of first use: 11. Date of last use: 04/13/20. Patient does not smoke. Presents with history of multiple MOE treatment failures. Medical History: Medical profile is remarkable for alcoholic cirrhosis, gastritis, hypertension, dyslipidemia and history of appendectomy. Psychiatric History: Patient denies history of psychiatric hospitalizations, current OPD care or suicide attempts. Records ([facility]) indicate that Mr Norton is known to the [facility] outpatient program in [place], [place] (past treatment with bupropion). Physical/Sexual Abuse/Trauma History: Patient denies. Additional Comment: Urine drug screen results: BZO-Benzodiazepines. Noted. Mental Status Exam - Mental Status Exam Alert and Oriented to: Time, Place, Person Cognitive Function: Good Patient Appearance: Well Groomed (short stature) Mood: Hopeful Affect: Appropriate, Normal Range Patient Behavior: Fatigued, Appropriate, Cooperative Speech Pattern: Clear, Appropriate Voice Loudness: Normal Thought Process: Intact, Goal Oriented Thought Disorder: Not Present Hallucinations: Denies Suicidal Ideation: Denies Homicidal Ideation: Denies Insight/Judgement: Poor Sleep: Well Appetite: Good (observed eating lunch) Gait/Station: Normal Psychiatric Findings - Problem List ([place] 1, 2,3) (1) Alcohol dependence with uncomplicated withdrawal Current Visit: Yes Status: Acute - Initial Treatment Plan Initial Treatment Plan: Psychoeducation. Support. Sleep hygiene. MAT-ETOH interventions reviewed with the patient. Motivational counseling. Detoxification in progress. Observation.
[2020-04-18] MEDS ORDERED: chlordiazePOXIDE HCL 10 MG CAPSULE PO SCH (17:00)
--- NOTE | 2020-04-18 17:53 | PN ---
S CIWA - CIWA Score Nausea/Vomitin-No Nausea/No Vomiting Muscle Tremors: None Anxiety: 2 Agitation: 2 Paroxysmal Sweats: 3 Orientation: 0-Oriented Tacttile Disturbances: 0-None Auditory Disturbances: 2-Mild Harshness/Frighten Visual Disturbances: 1-Very Mild Sensitivity Headache: 0-None Present CIWA-Ar Total Score: 10 S Progress Note (SOAP) Subjective: Sweating, Anxious, Restless, Body Aches. Objective: Patient A & O X 3; In No Acute Distress. 04/18/20 17:53 Vital Signs Temperature 97.8 F 04/18/20 12:38 Pulse Rate 106 H 04/18/20 12:38 Respiratory Rate 20 04/18/20 12:38 Blood Pressure 149/86 04/18/20 12:38 O2 Sat by Pulse Oximetry (%) 100 04/18/20 12:38 Admission lab results noted. Elevated Liver Enzymes and abnormalities noted on UA from time in which Patient was admitted at [facility]. Repeat CMP and UA ordered for tomorrow AM. 04/18/20 17:57 Assessment: 04/18/20 17:59 WITHDRAWAL SYMPTOMS. HYPERBILIRUBINEMIA. ELEVATED ALT, AST, AND AP LEVELS. Plan: Continue Detox. Increase Daily Oral Water Intake. Continue to monitor Blood pressure (fluctuating over last several readings).
[2020-04-18] MEDS: LORazepam 0.5 MG TABLET PO SCH (22:15)
[2020-04-18] MEDS: MELATONIN 5 MG TABLETS PO SCH (22:15)
[2020-04-18] MEDS: THIAMINE HCL 100 MG TABLET (FP) PO SCH (22:15)
[2020-04-19] MEDS: LORazepam 0.5 MG TABLET PO SCH ×4 (06:13→22:49)
[2020-04-19 10:00] LABS: POTASSIUM 3.7 mmol/L (3.5-5.1)
[2020-04-19 10:11] LABS: ALBUMIN 3.3 g/dl (3.4-5.0); BILIRUBIN,TOTAL 5.2 mg/dL (0.2-1); BLOOD UREA NITROGEN 3.4 mg/dL (7-18); CALCIUM 9.2 mg/dL (8.5-10.1); CREATININE 0.9 mg/dL (0.55-1.3)
[2020-04-19] MEDS: PRENATAL VITAMINS W/ FOLIC ACID TABLET (FP) PO SCH (10:40)
[2020-04-19] MEDS: PANTOPRAZOLE 40 MG TABLET PO SCH (10:40)
[2020-04-19 11:03] LABS: TOT PROT 7.9 g/dl (6.4-8.2)
--- NOTE | 2020-04-19 18:57 | PN ---
S CIWA - CIWA Score Nausea/Vomitin-No Nausea/No Vomiting Muscle Tremors: 2 Anxiety: 1-Mildly Anxious Agitation: 1-Slight > Activity Paroxysmal Sweats: 2 Orientation: 0-Oriented Tacttile Disturbances: 0-None Auditory Disturbances: 0-None Visual Disturbances: 0-None Headache: 0-None Present CIWA-Ar Total Score: 6 [facility] Progress Note (SOAP) Subjective: Feels ok Objective: 04/19/20 18:53 Last Vital Signs Temp Pulse Resp BP Pulse Ox 97.7 F 99 H 18 126/81 98 04/19/20 09:22 04/19/20 09:22 04/19/20 09:22 04/19/20 09:22 04/19/20 06:03 Laboratory Tests 04/19/20 04/19/20 07:30 07:30 Sodium 136 Potassium 3.7 Chloride 102 Carbon Dioxide 26 Anion Gap 8 BUN 3.4 L Creatinine 0.9 Est GFR (CKD-EPI)AfAm 127.80 Est GFR (CKD-EPI)NonAf 110.27 Random Glucose 112 H Calcium 9.2 Total Bilirubin 5.2 H AST 139 H ALT 95 H Alkaline Phosphatase 149 H Total Protein 7.9 Albumin 3.3 L Syphilis Serology Non-reactive Labs reviewed: CBC (plt 80); abnormal LFTs noted above Assessment: 04/19/20 18:54 Withdrawal sxs Noted with thrombocytopenia and elevated LFTS Plan: Continue detox Encourage PO water intake Pt for discharge tomorrow but needs labs as ordered (follow up on lab results prior to making discharge decision) Thrombocytopenia and elevated LFTS: most likely due to alcoholism and liver cirrhosis/hepatitis, repeat hepatic function panel, monitor for bruising
[2020-04-19] MEDS: THIAMINE HCL 100 MG TABLET (FP) PO SCH (22:49)
[2020-04-19] MEDS: MELATONIN 5 MG TABLETS PO SCH (22:49)
[2020-04-20] MEDS ORDERED: chlordiazePOXIDE HCL 10 MG CAPSULE PO ONE (05:00)
[2020-04-20] MEDS ORDERED: LORazepam 0.5 MG TABLET PO ONE (05:00)
--- NOTE | 2020-04-20 08:53 | DS ---
[facility] Detox Discharge Summary Admission Date: 04/17/20 Discharge Date: 04/20/20 - History Present History: Alcohol Dependence - Physical Exam Results Vital Signs: Vital Signs Temperature 98.2 F 04/20/20 05:35 Pulse Rate 68 04/20/20 05:35 Respiratory Rate 04/20/20 05:35 Blood Pressure 131/75 04/20/20 05:35 O2 Sat by Pulse Oximetry (%) 99 04/19/20 20:33 Pertinent Admission Physical Exam Findings: Vital Signs Temperature 98.2 F 04/20/20 05:35 Pulse Rate 68 04/20/20 05:35 Respiratory Rate 04/20/20 05:35 Blood Pressure 131/75 04/20/20 05:35 O2 Sat by Pulse Oximetry (%) 99 04/19/20 20:33 Laboratory Tests 04/19/20 04/19/20 07:30 07:30 Sodium 136 Potassium 3.7 Chloride 102 Carbon Dioxide 26 Anion Gap 8 BUN 3.4 L Creatinine 0.9 Est GFR (CKD-EPI)AfAm 127.80 Est GFR (CKD-EPI)NonAf 110.27 Random Glucose 112 H Calcium 9.2 Total Bilirubin 5.2 H AST 139 H ALT 95 H Alkaline Phosphatase 149 H Total Protein 7.9 Albumin 3.3 L Syphilis Serology Non-reactive labs noted aaox3 ambulating no acute distress lungs CTA - Treatment Hospital Course: Detox Protocol Followed, Detoxed Safely, Responded well, Discharged Condition Good, Rehab Referral Accepted - Medication Discharge Medications: Ambulatory Orders Folic Acid 1 mg PO DAILY 04/17/20 Multivitamins [Multivit ([facility] Formulary)] 1 tablet PO DAILY 04/17/20 Wellbutrin Sr 150 mg PO DAILY 04/17/20 - Diagnosis (1) Alcohol dependence with uncomplicated withdrawal Current Visit: Yes Status: Chronic (2) Elevated alanine aminotransferase (ALT) level Current Visit: Yes Status: Chronic (3) Elevated alkaline phosphatase level Current Visit: Yes Status: Acute (4) Elevated aspartate aminotransferase level Current Visit: Yes Status: Acute (5) Abnormal liver function tests Current Visit: Yes Status: Chronic (6) Alcoholic hepatitis Current Visit: Yes Status: Chronic Qualifiers: Ascites presence: without ascites Qualified Code(s): K70.10 - Alcoholic hepatitis without ascites (7) Hyperbilirubinemia Current Visit: Yes Status: Chronic (8) Hypertension Current Visit: Yes Status: Chronic Qualifiers: Hypertension type: essential hypertension Qualified Code(s): I10 - Essential (primary) hypertension (9) Jaundice Current Visit: Yes Status: Chronic (10) Abdominal pain Current Visit: No Status: Acute Qualifiers: Abdominal location: unspecified location Qualified Code(s): R10.9 - Unspecified abdominal pain (11) Alcohol withdrawal Current Visit: No Status: Acute (12) Dehydration Current Visit: No Status: Acute (13) Depression Current Visit: No Status: Acute (14) Elevated troponin Current Visit: No Status: Acute (15) GERD (gastroesophageal reflux disease) Current Visit: No Status: Acute (16) Hypokalemia Current Visit: No Status: Acute (17) Hypomagnesemia Current Visit: No Status: Acute (18) Hyponatremia Current Visit: No Status: Acute (19) Nicotine dependence unspecified, with withdrawal Current Visit: No Status: Acute (20) Transaminitis Current Visit: No Status: Acute (21) UTI (urinary tract infection) Current Visit: No Status: Acute - AMA Did Patient Leave Against Medical Advice: No
[2020-04-20] MEDS: PRENATAL VITAMINS W/ FOLIC ACID TABLET (FP) PO SCH (10:33)
[2020-04-20] MEDS: PANTOPRAZOLE 40 MG TABLET PO SCH (10:33)
[2020-04-20 11:13] LABS: ALBUMIN 3.3 g/dl (3.4-5.0); BILIRUBIN,DIRECT 3.2 mg/dL (0.0-0.2); BILIRUBIN,TOTAL 3.8 mg/dL (0.2-1); TOT PROT 8.1 g/dl (6.4-8.2)
[2020-04-20 11:20] VITALS: BP 127/78; PULSE 107; TEMP 97.5
== END 2020-04-20 12:09 | disposition other institution (70) | DRG 775 ==
LOC: YASAS 17:04 → Y6N 18:55
PROVIDERS: ADMIT Allergy & Immunology; ATTEND Allergy & Immunology
PROC: HZ2ZZZZ Detoxification Services for Substance Abuse Treatment (ICD-10-PCS; principal; 2020-04-17)
DX: F10.230 Alcohol dependence with withdrawal, uncomplicated (principal); F17.210 Nicotine dependence, cigarettes, uncomplicated; D69.6 Thrombocytopenia, unspecified; E80.6 Other disorders of bilirubin metabolism; E86.0 Dehydration; E87.6 Hypokalemia; E87.1 Hypo-osmolality and hyponatremia; E78.5 Hyperlipidemia, unspecified; I10 Essential (primary) hypertension; K70.10 Alcoholic hepatitis without ascites; N39.0 Urinary tract infection, site not specified; R94.5 Abnormal results of liver function studies
CPT/HCPCS: 36415; 80053; 80076; 86780

== ENCOUNTER 2020-04-20 12:04 | Inpatient (IN) | payer OTHER ==
--- NOTE | 2020-04-20 11:09 | HP ---
[facility] Rehab Assess/Revision - Admission History Ad[facility] to Rehab [facility] - Findings Detox History & Physical reviewed: Yes Concur with findings: Yes Inpatient Rehab Admission - Rehab Decision to Admit Inpatient rehab admission?: Yes - Initial Determination Are CD services needed?: Yes Free of communicable disease: Yes Not in need of hospitalization: Yes - Rehab Admission Criteria Previous failed treatment: Yes Poor recovery environment: Yes Comorbidities: Yes Lacks judgement: Yes Patient is meeting Inpatient Rehab admission criteria:: Yes
[2020-04-20] MEDS ORDERED: P-EPHED 60MG/TRIPROLIDI 2.5MG TABLET PO PRN (12:48)
[2020-04-20] MEDS ORDERED: ACETAMINOPHEN 325 MG TABLET (FP) PO PRN (12:48)
[2020-04-20] MEDS ORDERED: guaiFENesin 200 MG/10 ML 10 ML UNIT-DOSE CUPS PO PRN (12:48)
[2020-04-20] MEDS ORDERED: LOPERAMIDE HCL 2 MG CAPSULE PO PRN (12:48)
[2020-04-20] MEDS ORDERED: IBUPROFEN 400 MG TABLET (FP) PO PRN (12:48)
[2020-04-20] MEDS ORDERED: MAGNESIUM CITRATE 300 ML BOTTLE PO PRN (12:48)
[2020-04-20] MEDS ORDERED: MAG HYDROX/AL HYDROX/SIMETH 30 ML UNIT-DOSE CUP PO PRN (12:48)
[2020-04-20] MEDS ORDERED: MENTHOL/PHENOL 1 EACH UD MM PRN (12:48)
[2020-04-20] MEDS ORDERED: MAGNESIUM HYDROX 2400MG/30ML ORAL SUSPENSION 30 ML CUP PO PRN (12:48)
[2020-04-20] MEDS: MELATONIN 5 MG TABLETS PO SCH (21:06)
[2020-04-20] MEDS: THIAMINE HCL 100 MG TABLET (FP) PO SCH (21:06)
[2020-04-21] MEDS: PANTOPRAZOLE 40 MG TABLET PO SCH (09:58)
[2020-04-21] MEDS: PRENATAL VITAMINS W/ FOLIC ACID TABLET (FP) PO SCH (09:58)
[2020-04-21] MEDS: MELATONIN 5 MG TABLETS PO SCH (21:44)
[2020-04-21] MEDS: THIAMINE HCL 100 MG TABLET (FP) PO SCH (21:44)
[2020-04-22] MEDS: PRENATAL VITAMINS W/ FOLIC ACID TABLET (FP) PO SCH (10:13)
[2020-04-22] MEDS: PANTOPRAZOLE 40 MG TABLET PO SCH (10:13)
--- NOTE | 2020-04-22 16:21 | CONSULT ---
[facility] Psychiatric Consult - Data Date of interview: 04/22/20 Admission source: Transfer from [address] [place] [address]. Identifying data: Detoxification completed at [address] [place] [address]. Lance has now entered rehabilitation treatment, at [address], for continuity of care (psychotherapy + counseling + support + psychoeducation) to consolidate sobriety (alcoholism). Patient is a 35 y/o male, single (common-law relationship), no children, domiciled and currently employed. Substance Abuse History: Discussed with the patient. MOE profile as follows : Smoking history: Never smoked. Have you smoked in the past 12 months: No. Aproximately how many cigarettes per day: 0. Cigars Per Day: 0. Hx Chewing Tobacco Use: No. Initiated information on smoking cessation: No. - Substance & Tx. History. Hx Alcohol Use: Yes. Hx Substance Use: Yes. Substance Use Type: Alcohol. Hx Substance Use Treatment: Yes (detox). - Substances abused. Alcohol. Substance route: Oral. Frequency: Daily. Amount used: 4 beers/ 24 ounces of beers. Age of first use: 11. Date of last use: 04/13/20. Patient does not smoke. Presents with history of multiple MOE treatment failures. Medical History: Medical profile is remarkable for alcoholic cirrhosis, gastritis, hypertension, dyslipidemia and history of appendectomy. Psychiatric History: Patient denies history of psychiatric hospitalizations, current OPD care or suicide attempts. Records ([facility]) indicate that Mr Norton is known to the [facility] outpatient program in [place], [place] (past treatment with bupropion). Physical/Sexual Abuse/Trauma History: Patient denies. Additional Comment: Urine drug screen results: BZO-Benzodiazepines. Noted. Mental Status Exam - Mental Status Exam Alert and Oriented to: Time, Place, Person Cognitive Function: Good Patient Appearance: Well Groomed Mood: Hopeful, Euthymic Affect: Appropriate, Normal Range Patient Behavior: Appropriate, Cooperative Speech Pattern: Clear, Appropriate Voice Loudness: Normal Thought Process: Intact, Goal Oriented Thought Disorder: Not Present Hallucinations: Denies Suicidal Ideation: Denies Homicidal Ideation: Denies Insight/Judgement: Fair Sleep: Well Appetite: Good Gait/Station: Normal Psychiatric Findings - Problem List ([place] 1, 2,3) (1) Alcohol use disorder Current Visit: Yes Status: Chronic - Initial Treatment Plan Initial Treatment Plan: Psychoeducation. Rehabilitation program initiated. Support. Motivational counseling. Observation.
[2020-04-22] MEDS: MELATONIN 5 MG TABLETS PO SCH (21:03)
[2020-04-22] MEDS: THIAMINE HCL 100 MG TABLET (FP) PO SCH (21:03)
[2020-04-23] MEDS: PRENATAL VITAMINS W/ FOLIC ACID TABLET (FP) PO SCH (09:59)
[2020-04-23] MEDS: PANTOPRAZOLE 40 MG TABLET PO SCH (10:00)
[2020-04-23] MEDS: MELATONIN 5 MG TABLETS PO SCH (21:46)
[2020-04-23] MEDS: THIAMINE HCL 100 MG TABLET (FP) PO SCH (21:46)
[2020-04-24] MEDS: PRENATAL VITAMINS W/ FOLIC ACID TABLET (FP) PO SCH (09:56)
[2020-04-24] MEDS: PANTOPRAZOLE 40 MG TABLET PO SCH (09:57)
[2020-04-24 14:20] LABS: ALBUMIN 3.6 g/dl (3.4-5.0); BLOOD UREA NITROGEN 7.5 mg/dL (7-18); CALCIUM 9.3 mg/dL (8.5-10.1); CREATININE 0.7 mg/dL (0.55-1.3); TOT PROT 7.6 g/dl (6.4-8.2)
--- NOTE | 2020-04-24 14:34 | PN ---
[facility] Progress Note Note: Laboratory Tests 04/24/20 11:30 Sodium 137 Potassium 4.0 Chloride 102 Carbon Dioxide 29 Anion Gap 6 L BUN 7.5 Creatinine 0.7 Est GFR (CKD-EPI)AfAm 141.70 Est GFR (CKD-EPI)NonAf 122.26 Random Glucose 99 Calcium 9.3 Total Bilirubin 2.0 H AST 366 H ALT 239 H Alkaline Phosphatase 131 H Total Protein 7.6 Albumin 3.6 Vital Signs Temperature 98.3 F 04/24/20 06:22 Pulse Rate 77 04/24/20 06:22 Respiratory Rate 18 04/24/20 06:22 Blood Pressure 110/77 04/24/20 06:22 O2 Sat by Pulse Oximetry (%) 98 04/24/20 06:22 Labs reviewed and appreciated. Patient noted with elevated LFTS. Will order ammonia level due to elevation although no reported symptoms of sedation or change in mental status. Will repeat CMP in one week.
[2020-04-24] MEDS: MELATONIN 5 MG TABLETS PO SCH (21:02)
[2020-04-24] MEDS: THIAMINE HCL 100 MG TABLET (FP) PO SCH (21:02)
[2020-04-25] MEDS: PANTOPRAZOLE 40 MG TABLET PO SCH (09:59)
[2020-04-25] MEDS: PRENATAL VITAMINS W/ FOLIC ACID TABLET (FP) PO SCH (09:59)
[2020-04-25] MEDS ORDERED: LACTULOSE 20 GM/30 ML UDC (FOR ORAL USE ONLY) PO PRN (12:55)
--- NOTE | 2020-04-25 12:58 | PN ---
[facility] Progress Note Note: Lab Review Abnormal Lab Results 04/24/20 04/25/20 11:30 07:45 Anion Gap 6 L Total Bilirubin 2.0 H AST 366 H ALT 239 H Alkaline Phosphatase 131 H Ammonia 86.90 H Lactulose 20 gram TID ordered Repeat ammonia level on 04/27
[2020-04-25] MEDS: THIAMINE HCL 100 MG TABLET (FP) PO SCH (21:54)
[2020-04-25] MEDS: LACTULOSE 20 GM/30 ML UDC (FOR ORAL USE ONLY) PO SCH (21:54)
[2020-04-25] MEDS: MELATONIN 5 MG TABLETS PO SCH (21:55)
[2020-04-26] MEDS: PANTOPRAZOLE 40 MG TABLET PO SCH (09:54)
[2020-04-26] MEDS: LACTULOSE 20 GM/30 ML UDC (FOR ORAL USE ONLY) PO SCH ×2 (09:54→21:04)
[2020-04-26] MEDS: PRENATAL VITAMINS W/ FOLIC ACID TABLET (FP) PO SCH (09:54)
[2020-04-26] MEDS: THIAMINE HCL 100 MG TABLET (FP) PO SCH (21:03)
[2020-04-26] MEDS: MELATONIN 5 MG TABLETS PO SCH (21:04)
[2020-04-27] MEDS: PANTOPRAZOLE 40 MG TABLET PO SCH (10:13)
[2020-04-27] MEDS: PRENATAL VITAMINS W/ FOLIC ACID TABLET (FP) PO SCH (10:13)
[2020-04-27] MEDS: LACTULOSE 20 GM/30 ML UDC (FOR ORAL USE ONLY) PO SCH ×2 (10:13→21:59)
[2020-04-27] MEDS: THIAMINE HCL 100 MG TABLET (FP) PO SCH (21:59)
[2020-04-27] MEDS: MELATONIN 5 MG TABLETS PO SCH (22:00)
[2020-04-28] MEDS: PRENATAL VITAMINS W/ FOLIC ACID TABLET (FP) PO SCH (09:38)
[2020-04-28] MEDS: PANTOPRAZOLE 40 MG TABLET PO SCH (09:38)
[2020-04-28] MEDS: LACTULOSE 20 GM/30 ML UDC (FOR ORAL USE ONLY) PO SCH ×2 (09:39→21:02)
[2020-04-28] MEDS: MELATONIN 5 MG TABLETS PO SCH (21:02)
[2020-04-28] MEDS: THIAMINE HCL 100 MG TABLET (FP) PO SCH (21:02)
[2020-04-29] MEDS: LACTULOSE 20 GM/30 ML UDC (FOR ORAL USE ONLY) PO SCH ×2 (09:42→21:52)
[2020-04-29] MEDS: PANTOPRAZOLE 40 MG TABLET PO SCH (09:42)
[2020-04-29] MEDS: PRENATAL VITAMINS W/ FOLIC ACID TABLET (FP) PO SCH (09:42)
[2020-04-29] MEDS: METHOCARBAMOL 500 MG TABLET PO SCH ×2 (18:34→21:53)
[2020-04-29] MEDS: MELATONIN 5 MG TABLETS PO SCH (21:53)
[2020-04-29] MEDS: THIAMINE HCL 100 MG TABLET (FP) PO SCH (21:53)
[2020-04-30] MEDS: PRENATAL VITAMINS W/ FOLIC ACID TABLET (FP) PO SCH (10:06)
[2020-04-30] MEDS: PANTOPRAZOLE 40 MG TABLET PO SCH (10:06)
[2020-04-30] MEDS: LACTULOSE 20 GM/30 ML UDC (FOR ORAL USE ONLY) PO SCH ×2 (10:06→21:01)
[2020-04-30] MEDS: METHOCARBAMOL 500 MG TABLET PO SCH ×4 (10:06→21:01)
[2020-04-30 10:58] LABS: ALBUMIN 3.8 g/dl (3.4-5.0); BILIRUBIN,TOTAL 1.4 mg/dL (0.2-1); BLOOD UREA NITROGEN 7.3 mg/dL (7-18); CALCIUM 9.7 mg/dL (8.5-10.1); CREATININE 0.7 mg/dL (0.55-1.3); POTASSIUM 4.1 mmol/L (3.5-5.1); TOT PROT 8.2 g/dl (6.4-8.2)
[2020-04-30] MEDS: THIAMINE HCL 100 MG TABLET (FP) PO SCH (21:01)
[2020-04-30] MEDS: MELATONIN 5 MG TABLETS PO SCH (21:01)
[2020-05-01] MEDS: LACTULOSE 20 GM/30 ML UDC (FOR ORAL USE ONLY) PO SCH ×2 (09:57→21:03)
[2020-05-01] MEDS: PRENATAL VITAMINS W/ FOLIC ACID TABLET (FP) PO SCH (09:57)
[2020-05-01] MEDS: METHOCARBAMOL 500 MG TABLET PO SCH ×4 (09:57→21:03)
[2020-05-01] MEDS: PANTOPRAZOLE 40 MG TABLET PO SCH (09:57)
--- NOTE | 2020-05-01 12:02 | PN ---
[facility] Progress Note Note: Laboratory Tests 04/24/20 04/25/20 04/27/20 11:30 07:45 09:00 Sodium 137 Potassium 4.0 Chloride 102 Carbon Dioxide 29 Anion Gap 6 L BUN 7.5 Creatinine 0.7 Est GFR (CKD-EPI)AfAm 141.70 Est GFR (CKD-EPI)NonAf 122.26 Random Glucose 99 Calcium 9.3 Total Bilirubin 2.0 H AST 366 H ALT 239 H Alkaline Phosphatase 131 H Ammonia 86.90 H 66.60 H Total Protein 7.6 Albumin 3.6 04/30/20 07:50 Sodium 138 Potassium 4.1 Chloride 102 Carbon Dioxide 28 Anion Gap 8 BUN 7.3 Creatinine 0.7 Est GFR (CKD-EPI)AfAm 141.70 Est GFR (CKD-EPI)NonAf 122.26 Random Glucose 78 Calcium 9.7 Total Bilirubin 1.4 H AST 181 H ALT 237 H Alkaline Phosphatase 127 H Ammonia Total Protein 8.2 Albumin 3.8 Ammonia level appreciated for 04/27/2020-66.60. Lactulose in progress, will repeat level on 05/05/2020.
[2020-05-01] MEDS: MELATONIN 5 MG TABLETS PO SCH (21:02)
[2020-05-01] MEDS: THIAMINE HCL 100 MG TABLET (FP) PO SCH (21:03)
[2020-05-02] MEDS: PANTOPRAZOLE 40 MG TABLET PO SCH (09:53)
[2020-05-02] MEDS: METHOCARBAMOL 500 MG TABLET PO SCH ×4 (09:53→22:19)
[2020-05-02] MEDS: hydrOXYzine PAMOATE 25 MG CAPSULE (FP) PO PRN ×2 (09:53→22:20)
[2020-05-02] MEDS: LACTULOSE 20 GM/30 ML UDC (FOR ORAL USE ONLY) PO SCH ×2 (09:53→22:19)
[2020-05-02] MEDS: PRENATAL VITAMINS W/ FOLIC ACID TABLET (FP) PO SCH (09:53)
[2020-05-02] MEDS: MELATONIN 5 MG TABLETS PO SCH (22:19)
[2020-05-02] MEDS: THIAMINE HCL 100 MG TABLET (FP) PO SCH (22:19)
[2020-05-03] MEDS: METHOCARBAMOL 500 MG TABLET PO SCH ×4 (09:59→21:53)
[2020-05-03] MEDS: PANTOPRAZOLE 40 MG TABLET PO SCH (09:59)
[2020-05-03] MEDS: PRENATAL VITAMINS W/ FOLIC ACID TABLET (FP) PO SCH (09:59)
[2020-05-03] MEDS: LACTULOSE 20 GM/30 ML UDC (FOR ORAL USE ONLY) PO SCH ×2 (09:59→21:53)
[2020-05-03] MEDS: THIAMINE HCL 100 MG TABLET (FP) PO SCH (21:53)
[2020-05-03] MEDS: hydrOXYzine PAMOATE 25 MG CAPSULE (FP) PO PRN (21:53)
[2020-05-03] MEDS: MELATONIN 5 MG TABLETS PO SCH (21:54)
[2020-05-04] MEDS: PANTOPRAZOLE 40 MG TABLET PO SCH (09:44)
[2020-05-04] MEDS: PRENATAL VITAMINS W/ FOLIC ACID TABLET (FP) PO SCH (09:44)
[2020-05-04] MEDS: hydrOXYzine PAMOATE 25 MG CAPSULE (FP) PO PRN (09:44)
[2020-05-04] MEDS: LACTULOSE 20 GM/30 ML UDC (FOR ORAL USE ONLY) PO SCH ×2 (09:44→21:05)
[2020-05-04] MEDS: METHOCARBAMOL 500 MG TABLET PO SCH ×4 (09:45→21:05)
[2020-05-04] MEDS: THIAMINE HCL 100 MG TABLET (FP) PO SCH (21:05)
[2020-05-04] MEDS: MELATONIN 5 MG TABLETS PO SCH (21:05)
[2020-05-05] MEDS: PRENATAL VITAMINS W/ FOLIC ACID TABLET (FP) PO SCH (09:37)
[2020-05-05] MEDS: PANTOPRAZOLE 40 MG TABLET PO SCH (09:37)
[2020-05-05] MEDS: LACTULOSE 20 GM/30 ML UDC (FOR ORAL USE ONLY) PO SCH ×2 (09:37→21:31)
[2020-05-05] MEDS: METHOCARBAMOL 500 MG TABLET PO SCH ×4 (09:37→21:31)
[2020-05-05] MEDS: THIAMINE HCL 100 MG TABLET (FP) PO SCH (21:31)
[2020-05-05] MEDS: MELATONIN 5 MG TABLETS PO SCH (21:31)
[2020-05-06] MEDS: METHOCARBAMOL 500 MG TABLET PO SCH ×4 (09:58→21:02)
[2020-05-06] MEDS: LACTULOSE 20 GM/30 ML UDC (FOR ORAL USE ONLY) PO SCH ×2 (09:58→21:02)
[2020-05-06] MEDS: PANTOPRAZOLE 40 MG TABLET PO SCH (09:58)
[2020-05-06] MEDS: PRENATAL VITAMINS W/ FOLIC ACID TABLET (FP) PO SCH (09:58)
[2020-05-06] MEDS: MELATONIN 5 MG TABLETS PO SCH (21:02)
[2020-05-06] MEDS: THIAMINE HCL 100 MG TABLET (FP) PO SCH (21:02)
[2020-05-07] MEDS: PANTOPRAZOLE 40 MG TABLET PO SCH (09:34)
[2020-05-07] MEDS: METHOCARBAMOL 500 MG TABLET PO SCH ×4 (09:34→21:02)
[2020-05-07] MEDS: PRENATAL VITAMINS W/ FOLIC ACID TABLET (FP) PO SCH (09:34)
[2020-05-07] MEDS: LACTULOSE 20 GM/30 ML UDC (FOR ORAL USE ONLY) PO SCH ×2 (09:34→21:02)
[2020-05-07] MEDS: THIAMINE HCL 100 MG TABLET (FP) PO SCH (21:02)
[2020-05-07] MEDS: MELATONIN 5 MG TABLETS PO SCH (21:02)
[2020-05-08] MEDS: PRENATAL VITAMINS W/ FOLIC ACID TABLET (FP) PO SCH (09:43)
[2020-05-08] MEDS: PANTOPRAZOLE 40 MG TABLET PO SCH (09:43)
[2020-05-08] MEDS: METHOCARBAMOL 500 MG TABLET PO SCH ×4 (09:43→21:15)
[2020-05-08] MEDS: LACTULOSE 20 GM/30 ML UDC (FOR ORAL USE ONLY) PO SCH ×2 (09:43→21:15)
--- NOTE | 2020-05-08 10:19 | PN ---
[facility] Progress Note Note: Laboratory Tests 04/24/20 04/25/20 04/27/20 11:30 07:45 09:00 Sodium 137 Potassium 4.0 Chloride 102 Carbon Dioxide 29 Anion Gap 6 L BUN 7.5 Creatinine 0.7 Est GFR (CKD-EPI)AfAm 141.70 Est GFR (CKD-EPI)NonAf 122.26 Random Glucose 99 Calcium 9.3 Total Bilirubin 2.0 H AST 366 H ALT 239 H Alkaline Phosphatase 131 H Ammonia 86.90 H 66.60 H Total Protein 7.6 Albumin 3.6 04/30/20 05/05/20 07:50 07:15 Sodium 138 Potassium 4.1 Chloride 102 Carbon Dioxide 28 Anion Gap 8 BUN 7.3 Creatinine 0.7 Est GFR (CKD-EPI)AfAm 141.70 Est GFR (CKD-EPI)NonAf 122.26 Random Glucose 78 Calcium 9.7 Total Bilirubin 1.4 H AST 181 H ALT 237 H Alkaline Phosphatase 127 H Ammonia 57.70 H Total Protein 8.2 Albumin 3.8 Vital Signs Temperature 97.9 F 05/08/20 05:52 Pulse Rate 78 05/08/20 05:52 Respiratory Rate 18 05/08/20 05:52 Blood Pressure 110/68 05/08/20 05:52 O2 Sat by Pulse Oximetry (%) 96 05/08/20 05:52 Ammonia level appreciated, reduced to 57.70 although still elevated. Will continue Lactulose as ordered. Repeat level in 05/12/2020.
[2020-05-08] MEDS: MELATONIN 5 MG TABLETS PO SCH (21:15)
[2020-05-08] MEDS: THIAMINE HCL 100 MG TABLET (FP) PO SCH (21:15)
[2020-05-09] MEDS: METHOCARBAMOL 500 MG TABLET PO SCH ×4 (09:40→21:31)
[2020-05-09] MEDS: LACTULOSE 20 GM/30 ML UDC (FOR ORAL USE ONLY) PO SCH ×2 (09:40→21:31)
[2020-05-09] MEDS: PANTOPRAZOLE 40 MG TABLET PO SCH (09:40)
[2020-05-09] MEDS: PRENATAL VITAMINS W/ FOLIC ACID TABLET (FP) PO SCH (09:40)
[2020-05-09] MEDS: THIAMINE HCL 100 MG TABLET (FP) PO SCH (21:31)
[2020-05-09] MEDS: MELATONIN 5 MG TABLETS PO SCH (21:32)
[2020-05-10] MEDS: PRENATAL VITAMINS W/ FOLIC ACID TABLET (FP) PO SCH (09:27)
[2020-05-10] MEDS: METHOCARBAMOL 500 MG TABLET PO SCH ×4 (09:27→21:05)
[2020-05-10] MEDS: PANTOPRAZOLE 40 MG TABLET PO SCH (09:27)
[2020-05-10] MEDS: LACTULOSE 20 GM/30 ML UDC (FOR ORAL USE ONLY) PO SCH ×2 (09:27→21:05)
[2020-05-10] MEDS: THIAMINE HCL 100 MG TABLET (FP) PO SCH (21:05)
[2020-05-10] MEDS: MELATONIN 5 MG TABLETS PO SCH (21:05)
[2020-05-11] MEDS: PANTOPRAZOLE 40 MG TABLET PO SCH (09:42)
[2020-05-11] MEDS: METHOCARBAMOL 500 MG TABLET PO SCH ×4 (09:42→21:50)
[2020-05-11] MEDS: LACTULOSE 20 GM/30 ML UDC (FOR ORAL USE ONLY) PO SCH ×2 (09:42→21:50)
[2020-05-11] MEDS: PRENATAL VITAMINS W/ FOLIC ACID TABLET (FP) PO SCH (09:42)
[2020-05-11] MEDS: THIAMINE HCL 100 MG TABLET (FP) PO SCH (21:50)
[2020-05-11] MEDS: MELATONIN 5 MG TABLETS PO SCH (21:51)
[2020-05-12] MEDS: PANTOPRAZOLE 40 MG TABLET PO SCH (09:53)
[2020-05-12] MEDS: LACTULOSE 20 GM/30 ML UDC (FOR ORAL USE ONLY) PO SCH ×2 (09:53→21:34)
[2020-05-12] MEDS: METHOCARBAMOL 500 MG TABLET PO SCH ×4 (09:53→21:33)
[2020-05-12] MEDS: PRENATAL VITAMINS W/ FOLIC ACID TABLET (FP) PO SCH (09:53)
[2020-05-12] MEDS: THIAMINE HCL 100 MG TABLET (FP) PO SCH (21:34)
[2020-05-12] MEDS: MELATONIN 5 MG TABLETS PO SCH (21:34)
--- NOTE | 2020-05-13 08:36 | PN ---
[facility] Progress Note Note: Ammonia level remains elevated, continue lactulose. Laboratory Last Values Sodium 138 mmol/L (136-145) 04/30/20 07:50 Potassium 4.1 mmol/L (3.5-5.1) 04/30/20 07:50 Chloride 102 mmol/L (98-107) 04/30/20 07:50 Carbon Dioxide 28 mmol/L (21-32) 04/30/20 07:50 Anion Gap 8 MMOL/L (8-16) 04/30/20 07:50 BUN 7.3 mg/dL (7-18) 04/30/20 07:50 Creatinine 0.7 mg/dL (0.55-1.3) 04/30/20 07:50 Est GFR (CKD-EPI)AfAm 141.70 04/30/20 07:50 Est GFR (CKD-EPI)NonAf 122.26 04/30/20 07:50 Random Glucose 78 mg/dL (74-106) 04/30/20 07:50 Calcium 9.7 mg/dL (8.5-10.1) 04/30/20 07:50 Total Bilirubin 1.4 mg/dL (0.2-1) H 04/30/20 07:50 AST 181 U/L (15-37) H 04/30/20 07:50 ALT 237 U/L (13-61) H 04/30/20 07:50 Alkaline Phosphatase 127 U/L (45-117) H 04/30/20 07:50 Ammonia 46.70 umol/L (11-32) H 05/12/20 07:00 Total Protein 8.2 g/dl (6.4-8.2) 04/30/20 07:50 Albumin 3.8 g/dl (3.4-5.0) 04/30/20 07:50
[2020-05-13] MEDS: LACTULOSE 20 GM/30 ML UDC (FOR ORAL USE ONLY) PO SCH ×2 (09:28→21:00)
[2020-05-13] MEDS: PRENATAL VITAMINS W/ FOLIC ACID TABLET (FP) PO SCH (09:28)
[2020-05-13] MEDS: METHOCARBAMOL 500 MG TABLET PO SCH ×4 (09:28→21:00)
[2020-05-13] MEDS: PANTOPRAZOLE 40 MG TABLET PO SCH (09:28)
[2020-05-13] MEDS: MELATONIN 5 MG TABLETS PO SCH (21:00)
[2020-05-13] MEDS: THIAMINE HCL 100 MG TABLET (FP) PO SCH (21:01)
[2020-05-14] MEDS: PRENATAL VITAMINS W/ FOLIC ACID TABLET (FP) PO SCH (09:44)
[2020-05-14] MEDS: PANTOPRAZOLE 40 MG TABLET PO SCH (09:44)
[2020-05-14] MEDS: METHOCARBAMOL 500 MG TABLET PO SCH ×4 (09:44→21:44)
[2020-05-14] MEDS: hydrOXYzine PAMOATE 25 MG CAPSULE (FP) PO PRN (09:44)
[2020-05-14] MEDS: LACTULOSE 20 GM/30 ML UDC (FOR ORAL USE ONLY) PO SCH ×2 (09:44→21:44)
[2020-05-14] MEDS ORDERED: PT OWN MED DRAWER 7, Y5N ONE (12:20)
[2020-05-14] MEDS: THIAMINE HCL 100 MG TABLET (FP) PO SCH (21:44)
[2020-05-14] MEDS: MELATONIN 5 MG TABLETS PO SCH (21:44)
[2020-05-15] MEDS: PRENATAL VITAMINS W/ FOLIC ACID TABLET (FP) PO SCH (09:45)
[2020-05-15] MEDS: LACTULOSE 20 GM/30 ML UDC (FOR ORAL USE ONLY) PO SCH ×2 (09:45→21:03)
[2020-05-15] MEDS: PANTOPRAZOLE 40 MG TABLET PO SCH (09:45)
[2020-05-15] MEDS: METHOCARBAMOL 500 MG TABLET PO SCH ×4 (09:47→21:03)
[2020-05-15] MEDS: MELATONIN 5 MG TABLETS PO SCH (21:03)
[2020-05-15] MEDS: THIAMINE HCL 100 MG TABLET (FP) PO SCH (21:04)
[2020-05-15] MEDS: hydrOXYzine PAMOATE 25 MG CAPSULE (FP) PO PRN (21:04)
[2020-05-16] MEDS: LACTULOSE 20 GM/30 ML UDC (FOR ORAL USE ONLY) PO SCH ×2 (09:40→21:39)
[2020-05-16] MEDS: PRENATAL VITAMINS W/ FOLIC ACID TABLET (FP) PO SCH (09:40)
[2020-05-16] MEDS: PANTOPRAZOLE 40 MG TABLET PO SCH (09:40)
[2020-05-16] MEDS: METHOCARBAMOL 500 MG TABLET PO SCH ×4 (09:41→21:40)
[2020-05-16] MEDS: MELATONIN 5 MG TABLETS PO SCH (21:39)
[2020-05-16] MEDS: THIAMINE HCL 100 MG TABLET (FP) PO SCH (21:40)
[2020-05-17] MEDS: METHOCARBAMOL 500 MG TABLET PO SCH ×4 (09:50→21:03)
[2020-05-17] MEDS: PANTOPRAZOLE 40 MG TABLET PO SCH (09:50)
[2020-05-17] MEDS: LACTULOSE 20 GM/30 ML UDC (FOR ORAL USE ONLY) PO SCH ×2 (09:50→21:02)
[2020-05-17] MEDS: PRENATAL VITAMINS W/ FOLIC ACID TABLET (FP) PO SCH (09:50)
[2020-05-17] MEDS: MELATONIN 5 MG TABLETS PO SCH (21:02)
[2020-05-17] MEDS: THIAMINE HCL 100 MG TABLET (FP) PO SCH (21:03)
[2020-05-18 07:00] VITALS: BP 128/68; PULSE 64; TEMP 97.6
--- NOTE | 2020-05-18 09:09 | DS ---
[facility] Rehab Discharge Summary - [facility] Rehab Discharge Summary Admission Date: 04/20/20 Discharge Date: 05/18/20 - History Present History: Alcohol dependence - Discharge Physical Exam Vital Signs: Vital Signs Temperature 97.6 F 05/18/20 06:30 Pulse Rate 64 05/18/20 06:30 Respiratory Rate 16 05/18/20 06:30 Blood Pressure 128/68 05/18/20 06:30 O2 Sat by Pulse Oximetry (%) 97 05/18/20 06:30 Laboratory Tests 04/24/20 04/25/20 04/27/20 11:30 07:45 09:00 Sodium 137 Potassium 4.0 Chloride 102 Carbon Dioxide 29 Anion Gap 6 L BUN 7.5 Creatinine 0.7 Est GFR (CKD-EPI)AfAm 141.70 Est GFR (CKD-EPI)NonAf 122.26 Random Glucose 99 Calcium 9.3 Total Bilirubin 2.0 H AST 366 H ALT 239 H Alkaline Phosphatase 131 H Ammonia 86.90 H 66.60 H Total Protein 7.6 Albumin 3.6 04/30/20 05/05/20 05/12/20 07:50 07:15 07:00 Sodium 138 Potassium 4.1 Chloride 102 Carbon Dioxide 28 Anion Gap 8 BUN 7.3 Creatinine 0.7 Est GFR (CKD-EPI)AfAm 141.70 Est GFR (CKD-EPI)NonAf 122.26 Random Glucose 78 Calcium 9.7 Total Bilirubin 1.4 H AST 181 H ALT 237 H Alkaline Phosphatase 127 H Ammonia 57.70 H 46.70 H Total Protein 8.2 Albumin 3.8 ROS: patient denies shakes, headaches, n/v/d, lethargy, fever, cough and sob PE: alert and oriented x 3 skin warm and dry Car S1S2, rrr resp cta bl, no wheezes or rales ext full rom, amb ad [facility] no tremors denies si/hi neuro cn 1-x11 grossly intact A/P Alcohol dependence Patient is medically stable for d/c aftercare arranged for [facility], 05/19/2020 at 2pm.. - Treatment Discharge Condition: Discharge condition good, Rehabilitated safely, Responded well, Outpatient referral accepted Hospital Course: Patient discharged from rehab today for alcohol dependence. He is medically stable and denies SI/HI. During course of treatment, patient evaluated and treated by psych team, treated for elevated ammonia levels with lactulose, attended 1:1 meetings with counseling team and attended group meetings. Aftercare arranged for [facility], appt 05/19/2020 at 2pm. Patient medically advised to follow up with [facility] to prevent relapse and to follow up with PCP next week for management of chronic conditions and repeat lab work. Patient states he has all medications in property and does not need refill of home medications. Ambulatory Orders Folic Acid 1 mg PO DAILY 04/17/20 Multivitamins [Multivit ([facility] Formulary)] 1 tablet PO DAILY 04/17/20 Wellbutrin Sr 150 mg PO DAILY 04/17/20 - Medication Discharge Medications: Ambulatory Orders Folic Acid 1 mg PO DAILY 04/17/20 Multivitamins [Multivit ([facility] Formulary)] 1 tablet PO DAILY 04/17/20 Wellbutrin Sr 150 mg PO DAILY 04/17/20 - Medication-Assisted Treatment (MAT) Medication-Assisted Treatment (MAT): No - Discharge Instructions Diet, activity, other medical instructions: Diet: mary as tolerated Activity: amb ad bradford as sharath Other medical instructions: f/u with pcp Dr. Kirk Abel, appt next week, could not provide exact date - Follow-up Referral Minutes to complete discharge: 40 - AMA Did Patient Leave Against Medical Advice: No
[2020-05-18] MEDS: METHOCARBAMOL 500 MG TABLET PO SCH (09:37)
[2020-05-18] MEDS: PANTOPRAZOLE 40 MG TABLET PO SCH (09:37)
[2020-05-18] MEDS: LACTULOSE 20 GM/30 ML UDC (FOR ORAL USE ONLY) PO SCH (09:37)
[2020-05-18] MEDS: PRENATAL VITAMINS W/ FOLIC ACID TABLET (FP) PO SCH (09:37)
== END 2020-05-18 10:03 | disposition home or self-care (01) | DRG 772 ==
LOC: YASAS 12:04 → Y3W 12:05
PROVIDERS: ADMIT Allergy & Immunology; ATTEND Allergy & Immunology
PROC: HZ40ZZZ Group Counseling for Substance Abuse Treatment, Cognitive (ICD-10-PCS; principal; 2020-04-20)
DX: F10.20 Alcohol dependence, uncomplicated (principal); I10 Essential (primary) hypertension; E78.5 Hyperlipidemia, unspecified; K70.30 Alcoholic cirrhosis of liver without ascites; Z87.19 Personal history of other diseases of the digestive system
CPT/HCPCS: 36415; 80053; 82140

== ENCOUNTER 2022-01-05 00:36 | Emergency (ER) | payer OTHER ==
[2022-01-05] MEDS ORDERED: FOLIC ACID INJECTION - 1 MG, THIAMINE HCL 100 MG, MULTIVIT INJECTION ADULT 10 ML in SOD... IVPB ONE (01:30)
[2022-01-05] MEDS ORDERED: MAGNESIUM SULF 50% (8.12 MEQ/2 ML-1 GM VIAL) IVPB ONE (01:30)
[2022-01-05] MEDS ORDERED: MAGNESIUM 1GM/D5W - 1 GM/100 ML IVPB IVPB ONE (01:33)
[2022-01-05] MEDS ORDERED: METOCLOPRAMIDE HCL INJECTION 10 MG/2 ML VIAL IVPUSH ONE (02:08)
[2022-01-05 02:15] LABS: BASO % 0.1 % (0-2.0); EOS % 0.1 % (0-4.5); HEMATOCRIT 40.7 % (35.4-49); HEMOGLOBIN 14.9 GM/dL (11.7-16.9); LYMPH % 5.2 % (8-40); MCH 36.7 pg (25.7-33.7); MCHC 36.6 g/dl (32.0-35.9); MEAN CELL VOLUME 100.3 fl (80-96); MONO % 9.8 % (3.8-10.2); NEUT % 84.8 % (42.8-82.8); PLATELET COUNT 248 10^3/uL (134-434); RBC 4.05 M/mm3 (4.00-5.60); RDW 15.3 % (11.9-15.9); WHITE BLOOD COUNT 19.2 K/mm3 (4.0-10.0)
[2022-01-05 02:23] LABS: INR 1.73 (0.83-1.09)
[2022-01-05 02:25] LABS: ACTIVATED PTT 39.7 SECONDS (25.2-36.5)
[2022-01-05 02:33] LABS: CHLORIDE 63 mmol/L (98-107)
[2022-01-05 02:36] LABS: ALBUMIN 2.8 g/dl (3.4-5.0); CALCIUM 8.3 mg/dL (8.5-10.1); CO2 32 mmol/L (21-32); LIPASE 110 U/L (73-393); MAGNESIUM 1.5 mg/dL (1.8-2.4)
[2022-01-05 02:37] VITALS: BMI 26.9
[2022-01-05 02:39] LABS: CREATININE 1.7 mg/dL (0.55-1.3); SGOT/AST 298 U/L (15-37); SGPT/ALT 93 U/L (13-61)
[2022-01-05 02:41] LABS: TOT PROT 7.3 g/dl (6.4-8.2)
[2022-01-05 02:42] LABS: ALK PHOS 333 U/L (45-117)
[2022-01-05 02:54] LABS: ANION GAP 20 MMOL/L (8-16); BILIRUBIN,TOTAL 23.7 mg/dL (0.2-1); BLOOD UREA NITROGEN 11.8 mg/dL (7-18); GLUCOSE,RANDOM 156 mg/dL (74-106); SODIUM 115 mmol/L (136-145)
[2022-01-05] MEDS ORDERED: diazePAM CARPU-JECT 10 MG/2 ML DISP.SYRIN IVPUSH ONE (03:12)
[2022-01-05] MEDS ORDERED: SODIUM CHLORIDE 1,000 ML IV SCH (03:15)
[2022-01-05] MEDS ORDERED: diazePAM CARPU-JECT 10 MG/2 ML DISP.SYRIN ONE (03:35)
[2022-01-05] MEDS ORDERED: METOCLOPRAMIDE HCL INJECTION 10 MG/2 ML VIAL ONE (03:35)
[2022-01-05 07:33] VITALS: BP 130/80; PULSE 107
[2022-01-05 07:39] VITALS: TEMP 98.5
== END 2022-01-05 07:42 | disposition short-term general hospital (02) ==
LOC: JER 00:36
PROC: 3E033GC Introduction of Other Therapeutic Substance into Peripheral Vein, Percutaneous Approach (ICD-10-PCS; principal; 2022-01-05)
DX: F10.239 Alcohol dependence with withdrawal, unspecified (principal); E87.1 Hypo-osmolality and hyponatremia; K72.90 Hepatic failure, unspecified without coma
CPT/HCPCS: 36415; 70450-TC; 71045-TC-FY; 74176-TC; 80053; 80307; 82140; 83690; 83735; 84484; 85025; 85610; 85730; 93005; 93010; 99291; 99292; C9803-CS; U0003; U0005